=== PATIENT | female | born 1935 | race Caucasian/White ===

== ENCOUNTER 2018-10-18 14:13 | Inpatient (IN) | payer MEDICARE ==
[2018-10-18] MEDS ORDERED: SODIUM CHLORIDE 0.9% 1,000 ML IV STA ×2 (14:51)
--- NOTE | 2018-10-18 15:27 | ED ---
General Adult HPI <Papa Garcia - Last Filed: 10/18/18 16:57> - General Source: patient, RN notes reviewed, old records reviewed Mode of arrival: wheelchair Limitations: no limitations <Margaret Otto - Last Filed: 10/18/18 17:05> - General Chief complaint: Recheck/Abnormal Lab/Rx Stated complaint: Abn labs Time Seen by Provider: 10/18/18 14:22 - History of Present Illness Initial comments: Patient is an 83-year-old female with complaints of generalized fatigue and weakness complaining of some dyspnea for the past week and coughing. She went to her primary care doctor and had blood work obtained. She was called today with abnormal lab values. The report that she had low platelets. Patient has had some abnormal bruising for Reason over her shoulder and subconjunctival hemorrhages. Patient has had no fevers or chills. She denies any productivity to her cough. (Margaret Otto) - Related Data Home Medications Medication Instructions Recorded Confirmed Glucosam/Paulie-Msm1/C/Jason/Bosw 1 tab PO DAILY 10/18/18 10/18/18 [Glucosamine-Chondroitin Tablet] Levothyroxine Sodium [Synthroid] 88 mcg PO DAILY 10/18/18 10/18/18 Multivitamin/Iron/Folic Acid 1 tab PO DAILY 10/18/18 10/18/18 [Centrum Complete Multivit Tab] Risedronate Sodium [Risedronate 35 mg PO MO 10/18/18 10/18/[address]] Allergies Allergy/AdvReac Type Severity Reaction Status Date / Time No Known Allergies Allergy Verified 10/18/18 14:32 Review of Systems ROS Other: All systems not noted in ROS Statement are negative. <JosePapa - Last Filed: 10/18/18 16:57> ROS Other: All systems not noted in ROS Statement are negative. <Margaret Otto - Last Filed: 10/18/18 17:05> ROS Statement: Those systems with pertinent positive or pertinent negative responses have been documented in the HPI. Past Medical History Past Medical History: Thyroid Disorder History of Any Multi-Drug Resistant Organisms: None Reported Past Surgical History: Orthopedic Surgery Additional Past Surgical History / Comment(s): cataracts, cornea transplant Past Psychological History: No Psychological Hx Reported Smoking Status: Never smoker Past Alcohol Use History: None Reported Past Drug Use History: None Reported <AleishadouglaswillisMargaret - Last Filed: 10/18/18 17:05> General Exam Limitations: no limitations General appearance: alert, in no apparent distress Head exam: Present: atraumatic, normocephalic, normal inspection Eye exam: Present: normal appearance, PERRL, EOMI. Absent: scleral icterus, conjunctival injection, periorbital swelling ENT exam: Present: normal exam, mucous membranes moist Neck exam: Present: normal inspection. Absent: tenderness, meningismus, lymphadenopathy Respiratory exam: Present: normal lung sounds bilaterally. Absent: respiratory distress, wheezes, rales, rhonchi, stridor Cardiovascular Exam: Present: regular rate, normal rhythm, normal heart sounds. Absent: systolic murmur, diastolic murmur, rubs, gallop, clicks GI/Abdominal exam: Present: soft Extremities exam: Present: normal inspection, full ROM, normal capillary refill. Absent: tenderness, pedal edema, joint swelling, calf tenderness Back exam: Present: normal inspection Neurological exam: Present: alert, oriented X3, CN II-XII intact Psychiatric exam: Present: normal affect, normal mood Skin exam: Present: warm, dry, intact, normal color. Absent: rash <Whitley Ottoily - Last Filed: 10/18/18 17:05> - General Exam Comments Initial Comments: Pleasant 83-year-old female. No distress. (Margaret Otto) Course <Papa Garcia - Last Filed: 10/18/18 16:57> Vital Signs 10/18/18 10/18/18 14:16 15:07 Temperature 97.8 F Pulse Rate 90 Respiratory 18 16 Rate Blood Pressure 153/71 O2 Sat by Pulse 96 Oximetry - Reevaluation(s) Reevaluation #1: 10/18/18 16:57 PA supervision: I proceeded [id number] evaluation the patient I did discuss the findings with patient family members were present. Patient does demonstrate hemoglobin level VII.7 with a platelet count of 14,000. She also has evidence a right lower lobe infiltrate with a cough. Did discuss the case with Dr. Kapadia. Patient will be admitted with hematology consultation. (Papa Garcia) Medical Decision Making - Lab Data Result diagrams: 10/18/18 15:02 10/18/18 15:02 <Papa Garcia - Last Filed: 10/18/18 16:57> - Lab Data Result diagrams: 10/18/18 15:02 10/18/18 15:02 - Radiology Data Radiology results: report reviewed <Margaret Otto - Last Filed: 10/18/18 17:05> - Medical Decision Making Patient is an 83-year-old female presents today for complaints of cough, dyspnea starting on . She went to her primary care doctor and had lab work obtained and chest x-ray. She reports she was called today with him for abnormal lab values. Patient does report easy bruising that she's noted. And she was told she had a low platelet count. Today Patient has multiple lab abnormalities with a hemoglobin of 7.9. Hematocrit of 22.8. White blood cell 6.5. Platelets are significantly low at 14,000. Coagulation studies are within normal limits. Chemistry panels unremarkable. Patient's stool occult is negative. She has a positive chest x-ray for infiltrate on the right midlung. Patient started on Rocephin and azithromycin for concern for pneumonia. Patient case discussed with Dr. Garcia. We will admit the Patient for pneumonia and consult to hematology. With a negative occult will hold off on doing a blood transfusion at this time. (Margaret Otto) - Lab Data Lab Results 10/18/18 10/18/18 10/18/18 Range/Units 15:01 15:02 15:02 WBC 6.5 (3.8-10.6) k/uL RBC 2.16 L (3.80-5.40) m/uL Hgb 7.9 L (11.4-16.0) gm/dL Hct 22.8 L (34.0-46.0) % MCV 105.3 H (80.0-100.0) fL MCH 36.4 H (25.0-35.0) pg MCHC 34.6 (31.0-37.0) g/dL RDW 19.0 H (11.5-15.5) % Plt Count 14 L* (150-450) k/uL Neutrophils % 75 % Lymphocytes % 19 % Monocytes % 4 % Eosinophils % 1 % Basophils % 0 % Neutrophils # 4.9 (1.3-7.7) k/uL Lymphocytes # 1.3 (1.0-4.8) k/uL Monocytes # 0.3 (0-1.0) k/uL Eosinophils # 0.1 (0-0.7) k/uL Basophils # 0.0 (0-0.2) k/uL Manual Slide Review Performed Polychromasia Present Hypochromasia (manual) Present Anisocytosis Slight Anisocytosis (manual) Present Macrocytosis Marked A PT (9.0-12.0) sec INR (<1.2) APTT (22.0-30.0) sec Sodium 139 (137-145) mmol/L Potassium 3.9 (3.5-5.1) mmol/L Chloride 105 (98-107) mmol/L Carbon Dioxide 22 (22-30) mmol/L Anion Gap 12 mmol/L BUN 24 H (7-17) mg/dL Creatinine 0.61 (0.52-1.04) mg/dL Est GFR (CKD-EPI)AfAm >90 (>60 ml/min/1.73 sqM) Est GFR (CKD-EPI)NonAf 84 (>60 ml/min/1.73 sqM) Glucose 127 H (74-99) mg/dL Calcium 9.3 (8.4-10.2) mg/dL Magnesium 2.1 (1.6-2.3) mg/dL Total Bilirubin 1.8 H (0.2-1.3) mg/dL AST 46 H (14-36) U/L ALT 34 (9-52) U/L Alkaline Phosphatase 79 (38-126) U/L Troponin I (0.000-0.034) ng/mL Total Protein 6.7 (6.3-8.2) g/dL Albumin 4.0 (3.5-5.0) g/dL Stool Occult Blood (Negative) Blood Type B Positive Blood Type Confirm Blood Type Recheck CABO Indicated Antibody Screen NEGATIVE Spec Expiration Date 10/21/2018230010/18/18 10/18/18 10/18/18 Range/Units 15:02 15:02 15:57 WBC (3.8-10.6) k/uL RBC (3.80-5.40) m/uL Hgb (11.4-16.0) gm/dL Hct (34.0-46.0) % MCV (80.0-100.0) fL MCH (25.0-35.0) pg MCHC (31.0-37.0) g/dL RDW (11.5-15.5) % Plt Count (150-450) k/uL Neutrophils % % Lymphocytes % % Monocytes % % Eosinophils % % Basophils % % Neutrophils # (1.3-7.7) k/uL Lymphocytes # (1.0-4.8) k/uL Monocytes # (0-1.0) k/uL Eosinophils # (0-0.7) k/uL Basophils # (0-0.2) k/uL Manual Slide Review Polychromasia Hypochromasia (manual) Anisocytosis Anisocytosis (manual) Macrocytosis PT 9.4 (9.0-12.0) sec INR 0.9 (<1.2) APTT 24.1 (22.0-30.0) sec Sodium (137-145) mmol/L Potassium (3.5-5.1) mmol/L Chloride (98-107) mmol/L Carbon Dioxide (22-30) mmol/L Anion Gap mmol/L BUN (7-17) mg/dL Creatinine (0.52-1.04) mg/dL Est GFR (CKD-EPI)AfAm (>60 ml/min/1.73 sqM) Est GFR (CKD-EPI)NonAf (>60 ml/min/1.73 sqM) Glucose (74-99) mg/dL Calcium (8.4-10.2) mg/dL Magnesium (1.6-2.3) mg/dL Total Bilirubin (0.2-1.3) mg/dL AST (14-36) U/L ALT (9-52) U/L Alkaline Phosphatase (38-126) U/L Troponin I 0.014 (0.000-0.034) ng/mL Total Protein (6.3-8.2) g/dL Albumin (3.5-5.0) g/dL Stool Occult Blood NEG (Negative) Blood Type Blood Type Confirm Blood Type Recheck Antibody Screen Spec Expiration Date 10/18/18 Range/Units 16:48 WBC (3.8-10.6) k/uL RBC (3.80-5.40) m/uL Hgb (11.4-16.0) gm/dL Hct (34.0-46.0) % MCV (80.0-100.0) fL MCH (25.0-35.0) pg MCHC (31.0-37.0) g/dL RDW (11.5-15.5) % Plt Count (150-450) k/uL Neutrophils % % Lymphocytes % % Monocytes % % Eosinophils % % Basophils % % Neutrophils # (1.3-7.7) k/uL Lymphocytes # (1.0-4.8) k/uL Monocytes # (0-1.0) k/uL Eosinophils # (0-0.7) k/uL Basophils # (0-0.2) k/uL Manual Slide Review Polychromasia Hypochromasia (manual) Anisocytosis Anisocytosis (manual) Macrocytosis PT (9.0-12.0) sec INR (<1.2) APTT (22.0-30.0) sec Sodium (137-145) mmol/L Potassium (3.5-5.1) mmol/L Chloride (98-107) mmol/L Carbon Dioxide (22-30) mmol/L Anion Gap mmol/L BUN (7-17) mg/dL Creatinine (0.52-1.04) mg/dL Est GFR (CKD-EPI)AfAm (>60 ml/min/1.73 sqM) Est GFR (CKD-EPI)NonAf (>60 ml/min/1.73 sqM) Glucose (74-99) mg/dL Calcium (8.4-10.2) mg/dL Magnesium (1.6-2.3) mg/dL Total Bilirubin (0.2-1.3) mg/dL AST (14-36) U/L ALT (9-52) U/L Alkaline Phosphatase (38-126) U/L Troponin I (0.000-0.034) ng/mL Total Protein (6.3-8.2) g/dL Albumin (3.5-5.0) g/dL Stool Occult Blood (Negative) Blood Type Blood Type Confirm B Positive Blood Type Recheck Antibody Screen Spec Expiration Date - Radiology Data Chest x-ray shows mild infiltrate in the right midlung. No heart failure. (Margaret Otto) Disposition <Papa Garcia - Last Filed: 10/18/18 16:57> Is patient prescribed a controlled substance at d/c from ED?: No Time of Disposition: 17:05 <Margaret Otto - Last Filed: 10/18/18 17:05> Clinical Impression: Pneumonia, Thrombocytopenia, Anemia Disposition: ADMITTED IP TO THIS HOSP Condition: Stable Referrals: Carlos Wyatt DO [Primary Care Provider] - 1-2 days
[2018-10-18 15:39] LABS: ALT 34 U/L (9-52); AST 46 U/L (14-36); African American GFR (CKD) >90 (>60 ml/min/1.73 sqM); Alkaline Phosphatase 79 U/L (38-126); Anion Gap 12 mmol/L; Blood Urea Nitrogen 24 mg/dL (7-17); Calcium 9.3 mg/dL (8.4-10.2); Carbon Dioxide 22 mmol/L (22-30); Chloride 105 mmol/L (98-107); Glucose 127 mg/dL (74-99); INR 0.9 (<1.2); Magnesium 2.1 mg/dL (1.6-2.3); Partial Thromboplastin Time 24.1 sec (22.0-30.0); Potassium 3.9 mmol/L (3.5-5.1); Prothrombin Time 9.4 sec (9.0-12.0); Sodium 139 mmol/L (137-145); Total Bilirubin 1.8 mg/dL (0.2-1.3); Total Protein 6.7 g/dL (6.3-8.2)
--- NOTE | 2018-10-18 15:49 | XR ---
EXAMINATION TYPE: XR chest 2V DATE OF EXAM: 10/18/2018 COMPARISON: NONE HISTORY: Short of breath TECHNIQUE: Frontal and lateral views of the chest are obtained. FINDINGS: Heart is normal. Thoracic aorta is atheromatous. There is a mild interstitial infiltrate i n the right midlung. There is no pleural effusion. There is osteopenia. There is no compression fract ure. IMPRESSION: Mild infiltrate right midlung. No heart failure.
[2018-10-18 15:59] LABS: Anisocytosis Slight; Basophils % (A) 0 %; Eosinophils # (A) 0.1 k/uL (0-0.7); Eosinophils % (A) 1 %; HCT 22.8 % (34.0-46.0); HGB 7.9 gm/dL (11.4-16.0); Lymphocytes # (A) 1.3 k/uL (1.0-4.8); Lymphocytes % (A) 19 %; MCH 36.4 pg (25.0-35.0); MCHC 34.6 g/dL (31.0-37.0); MCV 105.3 fL (80.0-100.0); Macrocytosis Marked; Mean Platelet Volume 8.1; Monocytes # (A) 0.3 k/uL (0-1.0); Monocytes % (A) 4 %; Neutrophils # (A) 4.9 k/uL (1.3-7.7); Neutrophils % (A) 75 %; RBC 2.16 m/uL (3.80-5.40); WBC 6.5 k/uL (3.8-10.6)
[2018-10-18 16:41] LABS: Anisocytosis (M) Present; Hypochromasia (M) Present; Platelet Count 14 k/uL (150-450); Polychromasia Present
[2018-10-18] MEDS ORDERED: AZITHROMYCIN 500 MG TAB PO STA (16:55)
[2018-10-18] MEDS ORDERED: IPRATROPIUM-ALBUTEROL 3 ML NEB INHALATION STA (16:55)
[2018-10-18] MEDS ORDERED: PNEUMONIA PROTOCOL UTILIZED 1 EACH MISC PO PRN (17:05)
[2018-10-18] MEDS ORDERED: ACETAMINOPHEN TAB 500 MG TAB PO PRN (20:09)
[2018-10-18] MEDS ORDERED: ALPRAZolam 0.25 MG TAB PO PRN (20:09)
[2018-10-18 21:29] LABS: C Reactive Protein 143.5 mg/L (<10.0)
[2018-10-18 22:09] LABS: Reticulocyte % 2.6 % (0.5-2.0)
--- NOTE | 2018-10-18 22:34 | HP ---
HISTORY AND PHYSICAL DATE OF SERVICE: 10/18/2018 CHIEF COMPLAINT: Tiredness and weakness and cough. HISTORY OF PRESENT ILLNESS: This 83-year-old woman with a past medical history of multiple medical problems including history of cataracts, hypothyroidism, history of corneal transplant, being followed by Dr. Eloy Morocho in the outpatient setting was not feeling well since . The patient initially had cough and patient woke up with severe tiredness and weakness. Patient was seen by the primary physician and then today the patient was called because of very low platelet counts and patient was directed to go to [facility] Emergency Room and was admitted for further evaluation and treatment. On evaluation, the hemoglobin was 7.9 and platelets of 14. The patient also had some left subconjunctival hemorrhage. Chest x-ray showed possible right upper lobe pneumonia. Patient admitted for further evaluation and treatment. There is no history of fever, rigors or chills. No history of headache, loss of consciousness or seizures at this time. PAST MEDICAL HISTORY: History of hypothyroidism, history of DJD, history of cataracts. MEDICATIONS: Prior to admission: Home medications are: 1. Risedronate 35 mg p.o. monthly. 2. Synthroid 88 mcg p.o. daily. 3. Multivitamins 1 p.o. daily. 4. Glucosamine 1 p.o. daily. ALLERGIES: None. FAMILY HISTORY: No history of heart disease or strokes in the family. SOCIAL HISTORY: No history of smoking. No history of alcohol intake. REVIEW OF SYSTEMS: ENT: As mentioned earlier. Cardiovascular: No angina or palpitations. RESPIRATORY: As mentioned earlier. GI no nausea or vomiting. no dysuria. NERVOUS SYSTEM: No numbness or weakness. ALLERGY/IMMUNOLOGY: No asthma or hayfever. MUSCULOSKELETAL as mentioned earlier. HEMATOLOGY/ONCOLOGY: As mentioned earlier. ENDOCRINE: As mentioned earlier. CONSTITUTIONAL: As mentioned earlier. DERMATOLOGY: Negative. RHEUMATOLOGY negative. PSYCHIATRIC negative. PHYSICAL EXAMINATION: Alert and oriented times three. Pulse is 82. Blood pressure 153/71, respiration 18, temperature 97.8, pulse ox 98% on room air. HEENT: Conjunctivae subconjunctival hemorrhage on the left side. Oral mucosa moist. NECK is no jugular venous distention. No carotid bruit. No lymph node enlargement. CARDIOVASCULAR: S1, S2 muffled. No S3, no S4. RESPIRATORY: Breath sounds diminished in the bases. A few scattered rhonchi. No crackles. ABDOMEN: Soft, nontender. No mass palpable. No hepatosplenomegaly. No ascites. LEGS no edema. No swelling. NERVOUS SYSTEM: Higher functions as mentioned earlier. Moves all 4 limbs. No focal motor or sensory deficits. LYMPHATICS: No lymph nodes palpable in the neck, axillae or groin. SKIN: No ulcer, no rash and no bleeding. JOINTS: No active deforming arthropathy. LAB: WBC 6.5, hemoglobin 7.9, MCV 105 and platelets 14. Glucose 127, total bilirubin is 1.8. ASSESSMENT: 1. Possible right upper lobe right-sided pneumonia possibly viral pneumonia. 2. Severe thrombocytopenia of undetermined etiology possibly rule out idiopathic thrombocytopenia purpura or viral induced thrombocytopenia. 3. Anemia, microcytic etiology unknown. 4. Increased random blood sugar. 5. Increased total bilirubin. 6. History of degenerative joint disease. 7. Hypothyroidism. 8. History of corneal transplants. 9. History of cataracts. RECOMMENDATIONS AND DISCUSSION: In this 83-year-old woman who presented with multiple complex medical issues, we will monitor the patient closely. Continue the current medications, management and symptomatic treatment. We will initiate broad-spectrum IV antibiotics. Monitor the platelets very closely. Hematology/Oncology, Infectious Disease evaluation may be sought. Otherwise, prognosis guarded because of multiple complex medical issues. See orders for details. Discussed with the patient at length. A copy of dictation being forwarded to Dr. Eloy Morocho who is the primary physician. MMODL / IJN: [id number] /
[2018-10-19 01:52] LABS: Appearance,Urine Clear (Clear); Bacteria,Urine Few /hpf; Bilirubin,Urine Negative (Negative); Blood,Urine Moderate (Negative); Color,Urine Yellow; Glucose,Urine (UA) Negative (Negative); Ketones,Urine Negative (Negative); Leukocyte Esterase,Urine Large (Negative); Mucus,Urine Rare /hpf; Nitrite,Urine Positive (Negative); PH, Urine 5.5 (5.0-8.0); Protein,Urine Negative (Negative); RBC,Urine 4 /hpf (0-5); Specific Gravity,Urine 1.016 (1.001-1.035); Squamous Epithelial Cell,Urine <1 /hpf (0-4); Urobilinogen,Urine <2.0 mg/dL (<2.0); WBC,Urine 37 /hpf (0-5)
[2018-10-19] MEDS: IPRATROPIUM-ALBUTEROL 3 ML NEB INHALATION PRN ×2 (03:37→15:12)
[2018-10-19] MEDS: LEVOTHYROXINE 88 MCG TAB PO SCH (05:48)
--- NOTE | 2018-10-19 07:08 | XR ---
EXAMINATION TYPE: XR chest 2V DATE OF EXAM: 10/19/2018 COMPARISON: Chest x-ray from yesterday. HISTORY: Pneumonia. TECHNIQUE: Frontal and lateral views of the chest are obtained. FINDINGS: Cardiac silhouette size is stable and upper limits of normal. There is increasing alveolar opacity bilaterally and background reticular interstitial change. No large pleural effusion or pneum othorax.. IMPRESSION: Developing alveolar edema and/or infiltrates most prominent right mid lung region. Backg round bilateral diffuse interstitial edema and/or infiltrates. Correlation with older outside chest x -rays would be beneficial.
[2018-10-19 08:46] LABS: Anisocytosis Slight; Basophils % (A) 0 %; Eosinophils # (A) 0.1 k/uL (0-0.7); Eosinophils % (A) 1 %; Lymphocytes # (A) 0.6 k/uL (1.0-4.8); Lymphocytes % (A) 16 %; MCH 35.5 pg (25.0-35.0); MCHC 33.6 g/dL (31.0-37.0); MCV 105.9 fL (80.0-100.0); Macrocytosis Marked; Mean Platelet Volume 8.5; Monocytes # (A) 0.2 k/uL (0-1.0); Monocytes % (A) 5 %; Neutrophils % (A) 76 %; RBC 1.68 m/uL (3.80-5.40)
[2018-10-19 08:50] LABS: HCT 17.7 % (34.0-46.0); Platelet Count 17 k/uL (150-450)
[2018-10-19 09:15] LABS: African American GFR (CKD) >90 (>60 ml/min/1.73 sqM); Anion Gap 7 mmol/L; Blood Urea Nitrogen 15 mg/dL (7-17); Calcium 8.2 mg/dL (8.4-10.2); Carbon Dioxide 23 mmol/L (22-30); Chloride 106 mmol/L (98-107); Glucose 111 mg/dL (74-99); Potassium 3.6 mmol/L (3.5-5.1); Sodium 136 mmol/L (137-145)
[2018-10-19 09:36] LABS: Poikilocytosis (M) Present; Polychromasia Present
[2018-10-19] MEDS ORDERED: FUROSEMIDE 10 MG/ML 2 ML VIAL IV ONE ×2 (09:45→09:47)
[2018-10-19] MEDS: MULTIVITAMINS, THERA 1 EACH TAB PO SCH (10:24)
--- NOTE | 2018-10-19 11:47 | P.CONS ---
History of Present Illness - Reason for Consult Consult date: 10/19/18 Bicytopenia Requesting physician: Phillip Hines - Chief Complaint Progressive weakness, bruising - History of Present Illness Mrs. Dockery is a very pleasant 83-year-old female who looks much younger than her chronological age, she was in good health until about 3 weeks ago. She states that she received a vaccine that she was due for at [facility]. She noticed that the area bruised rather extensively and was very tender. About one week ago she started feeling progressively weaker, she noticed unusual bruising on her arms and thighs, had an episode of cold sweats, denied any nosebleeds, gum bleeding, coughing up of blood, her appetite has decreased over the last several weeks, no nausea or vomiting, chest pain, shortness of breath, abdominal pain, dysuria, hematuria, diarrhea or constipation, she did notice some dark stools but, she noted this after starting oral iron which she started taking due to weakness. Her daughter states that about 2-3 months ago she had an episode of shaking chills. Denies any personal history of cancer, no known blood problems. Urinary analysis suspicious, stool for occult was negative. Patient has osteoarthritis but denies any significant musculoskeletal pain. Review of Systems 14 point review of systems is negative except as stated in HPI Past Medical History Past Medical History: Thyroid Disorder History of Any Multi-Drug Resistant Organisms: None Reported Past Surgical History: Orthopedic Surgery Additional Past Surgical History / Comment(s): cataracts, cornea transplant Past Anesthesia/Blood Transfusion Reactions: No Reported Reaction Past Psychological History: No Psychological Hx Reported Smoking Status: Never smoker Past Alcohol Use History: None Reported Past Drug Use History: None Reported - Past Family History Father Additional Family Medical History / Comment(s): colon cancer Mother Family Medical History: CVA/TIA Medications and Allergies Home Medications Medication Instructions Recorded Confirmed Type Glucosam/Paulie-Msm1/C/Jaosn/Bosw 1 tab PO DAILY 10/18/18 10/18/18 History [Glucosamine-Chondroitin Tablet] Levothyroxine Sodium [Synthroid] 88 mcg PO DAILY 10/18/18 10/18/18 History Multivitamin/Iron/Folic Acid 1 tab PO DAILY 10/18/18 10/18/18 History [Centrum Complete Multivit Tab] Risedronate Sodium [Risedronate 35 mg PO MO 10/18/18 10/18/[address]] Allergies Allergy/AdvReac Type Severity Reaction Status Date / Time No Known Allergies Allergy Verified 10/18/18 14:32 Physical Exam Vitals: Vital Signs Temp Pulse Pulse Resp BP BP Pulse Ox 10/19/18 08:25 97 18 10/19/18 05:23 99.5 F 97 18 128/63 92 L 10/19/18 03:49 88 10/19/18 03:37 92 10/19/18 02:22 99.0 F 91 18 134/64 95 10/19/18 02:15 99.0 F 91 18 134/64 95 10/18/18 23:55 98.1 F 86 18 126/60 94 L 10/18/18 23:25 98.5 F 79 16 113/63 93 L 10/18/18 23:15 98.8 F 82 18 116/53 95 10/18/18 20:48 98.3 F 88 18 128/62 94 L 10/18/18 20:06 100 10/18/18 17:37 82 10/18/18 17:26 82 10/18/18 15:07 16 10/18/18 14:16 97.8 F 90 18 153/71 96 Intake and Output 10/18/18 10/19/18 10/19/18 22:59 06:59 14:59 Intake Total 563 Balance 563 Intake: Intake, IV Titration 250 Amount cefTRIAXone 1 gm In 250 Sodium Chloride 0.9% 50 ml @ 100 mls/hr IVPB Q24HR [facility] Rx#:[id number] Blood Product 313 Platelet Pheresis Acda1 313 Unit [id number] Other: Voiding Method Bedside Commode Bedside Commode Bedpan Bedpan # Voids 1 - Constitutional General appearance: average body habitus, cooperative, no acute distress - EENT Eyes: anicteric sclerae, EOMI, normal appearance ENT: hearing grossly normal, normal oropharynx - Neck Neck: no lymphadenopathy - Respiratory Respiratory: right: diminished (RML), bilateral: CTA - Cardiovascular Rhythm: regular Heart sounds: normal: S1, S2 Abnormal Heart Sounds: no systolic murmur, no diastolic murmur, no rub, no S3 Gallop, no S4 Gallop, no click, no other leg Peripheral Edema: bilateral: None - Gastrointestinal General gastrointestinal: no absent bowel sounds, no decreased bowel sounds, no distended, no hepatomegaly, no hyperactive bowel sounds, normal bowel sounds, no organomegaly, no rigid, no scaphoid, soft, no splenomegaly, no tenderness, no umbilical hernia, no ventral hernia - Integumentary Scattered bruises on the extremities, bilateral shins have some scattered petechiae, no hematomas Integumentary: normal turgor - Neurologic Neurologic: CNII-XII intact - Musculoskeletal Musculoskeletal: strength equal bilaterally - Psychiatric Psychiatric: A&O x's 3, appropriate affect, intact judgment & insight Results CBC & Chem 7: 10/19/18 08:14 10/19/18 08:14 Labs: Abnormal Lab Results - Last 24 Hours (Table) 10/18/18 10/18/18 10/18/18 Range/Units 15:01 15:02 15:02 RBC 2.16 L (3.80-5.40) m/uL Hgb 7.9 L (11.4-16.0) gm/dL Hct 22.8 L (34.0-46.0) % MCV 105.3 H (80.0-100.0) fL MCH 36.4 H (25.0-35.0) pg RDW 19.0 H (11.5-15.5) % Plt Count 14 L* (150-450) k/uL Lymphocytes # (1.0-4.8) k/uL Macrocytosis Marked A ESR (0-20) mm/hr Retic Count (0.5-2.0) % Sodium (137-145) mmol/L BUN 24 H (7-17) mg/dL Glucose 127 H (74-99) mg/dL Calcium (8.4-10.2) mg/dL Total Bilirubin 1.8 H (0.2-1.3) mg/dL AST 46 H (14-36) U/L Lactate Dehydrogenase (313-618) U/L C-Reactive Protein (<10.0) mg/L Urine Blood (Negative) Urine Nitrite (Negative) Ur Leukocyte Esterase (Negative) Urine WBC (0-5) /hpf Urine WBC Clumps (None) /hpf Urine Bacteria (None) /hpf Urine Mucus (None) /hpf Crossmatch See Detail 10/18/18 10/18/18 10/18/18 Range/Units 15:07 15:07 20:25 RBC (3.80-5.40) m/uL Hgb (11.4-16.0) gm/dL Hct (34.0-46.0) % MCV (80.0-100.0) fL MCH (25.0-35.0) pg RDW (11.5-15.5) % Plt Count (150-450) k/uL Lymphocytes # (1.0-4.8) k/uL Macrocytosis ESR 82 H (0-20) mm/hr Retic Count 2.6 H (0.5-2.0) % Sodium (137-145) mmol/L BUN (7-17) mg/dL Glucose (74-99) mg/dL Calcium (8.4-10.2) mg/dL Total Bilirubin (0.2-1.3) mg/dL AST (14-36) U/L Lactate Dehydrogenase 800 H (313-618) U/L C-Reactive Protein 143.5 H (<10.0) mg/L Urine Blood (Negative) Urine Nitrite (Negative) Ur Leukocyte Esterase (Negative) Urine WBC (0-5) /hpf Urine WBC Clumps (None) /hpf Urine Bacteria (None) /hpf Urine Mucus (None) /hpf Crossmatch 10/19/18 10/19/18 10/19/18 Range/Units 01:22 08:14 08:14 RBC 1.68 L (3.80-5.40) m/uL Hgb 6.0 L* D (11.4-16.0) gm/dL Hct 17.7 L* (34.0-46.0) % MCV 105.9 H (80.0-100.0) fL MCH 35.5 H (25.0-35.0) pg RDW 19.0 H (11.5-15.5) % Plt Count 17 L* (150-450) k/uL Lymphocytes # 0.6 L (1.0-4.8) k/uL Macrocytosis Marked A ESR (0-20) mm/hr Retic Count (0.5-2.0) % Sodium 136 L (137-145) mmol/L BUN (7-17) mg/dL Glucose 111 H (74-99) mg/dL Calcium 8.2 L (8.4-10.2) mg/dL Total Bilirubin (0.2-1.3) mg/dL AST (14-36) U/L Lactate Dehydrogenase (313-618) U/L C-Reactive Protein (<10.0) mg/L Urine Blood Moderate H (Negative) Urine Nitrite Positive H (Negative) Ur Leukocyte Esterase Large H (Negative) Urine WBC 37 H (0-5) /hpf Urine WBC Clumps Rare H (None) /hpf Urine Bacteria Few H (None) /hpf Urine Mucus Rare H (None) /hpf Crossmatch Chest x-ray: report reviewed US - abdomen: report reviewed Assessment and Plan (1) Anemia Current Visit: Yes Status: Acute Priority: High Code(s): D64.9 - ANEMIA, UNSPECIFIED SNOMED Code(s): 147157950 (2) Thrombocytopenia Current Visit: Yes Status: Acute Priority: High Code(s): D69.6 - THROMBOCYTOPENIA, UNSPECIFIED SNOMED Code(s): 606415453 Plan: This is all sudden onset for patient. Multiple labs have been ordered to evaluate for a marrow disorder, nutritional deficit, hemolysis. Patient may possibly need a bone marrow, this was briefly discussed as a possibility. Med list has been reviewed, no medications related to marrow suppression noted. Transfuse to keep hemoglobin at or above 7. 1 unit now with a repeat CBC about 5-6 hours later. Hold platelet transfusion for right now for a platelet count of 17,000. WBC and differential are within normal desired limits at this time.
[2018-10-19 17:30] LABS: Reticulocyte % 2.6 % (0.5-2.0)
[2018-10-19] MEDS: AZITHROMYCIN 500 MG TAB PO SCH (18:17)
[2018-10-19 20:05] LABS: Anisocytosis Slight; Basophils % (A) 0 %; Eosinophils # (A) 0.1 k/uL (0-0.7); Eosinophils % (A) 2 %; HCT 23.5 % (34.0-46.0); Lymphocytes # (A) 0.9 k/uL (1.0-4.8); Lymphocytes % (A) 23 %; MCH 35.9 pg (25.0-35.0); MCV 105.6 fL (80.0-100.0); Macrocytosis Marked; Mean Platelet Volume 8.7; Monocytes # (A) 0.2 k/uL (0-1.0); Monocytes % (A) 6 %; Neutrophils # (A) 2.7 k/uL (1.3-7.7); Neutrophils % (A) 69 %; RBC 2.22 m/uL (3.80-5.40); RDW 17.6 % (11.5-15.5)
[2018-10-19 20:10] LABS: Platelet Count 12 k/uL (150-450)
--- NOTE | 2018-10-19 22:30 | PN ---
PROGRESS NOTE DATE OF SERVICE: 10/19/2018 This 83-year-old woman with a past medical history of multiple medical problems was admitted with significant anemia as well as thrombocytopenia. The patient is also suspected to have pneumonia. The patient is on broad-spectrum IV antibiotics also. The patient received thrombocytopenia. The patient is being closely monitored at this time. The patient also received 1 unit transfusion also. PAST MEDICAL HISTORY: Reviewed. REVIEW OF SYSTEMS: CARDIOVASCULAR SYSTEM: No angina or palpitations. RESPIRATION: As mentioned earlier. GASTROINTESTINAL: As mentioned earlier. no dysuria. NERVOUS SYSTEM: No numbness or weakness. CURRENT MEDICATIONS: Reviewed and include: 1. Tylenol 500 mg q.6h p.r.n. 2. DuoNeb q.i.d. and p.r.n. 3. Xanax as necessary. 5. Rocephin 1 g daily. 6. Synthroid 18 mcg p.o. daily. 7. Multivitamin 1 p.o. daily. 8. Risedronate. PHYSICAL EXAM: Patient is alert, oriented x3. The pulse is 78, blood pressure 118/66, respiration 18. Temperature 98.2, pulse ox 98% on room air. HEENT: Conjunctivae subconjunctival hemorrhage. NECK is no jugular venous distention. No carotid bruit. No lymph node enlargement. Cardiovascular SYSTEM: S1, S2. No S3, no S4. RESPIRATIONS: Breath sounds diminished in the bases. Few rhonchi. No crackles. ABDOMEN: Soft, nontender. LEGS: No edema. No swelling. NERVOUS SYSTEM: No focal deficits. LABS: WBC 4, hemoglobin is 6, platelets 17. Sodium 136. UA noted. ASSESSMENT: 1. Possible bilateral bronchopneumonia/interstitial pneumonia, right more than the left, possibly viral pneumonia. 2. Severe thrombocytopenia, undetermined etiology, rule out idiopathic thrombocytopenia purpura or viral-induced thrombocytopenia. 3. Anemia, microcytic etiology, unknown. 4. Increased random blood sugar. 5. Increased total bilirubin. 6. History of degenerative joint disease. 7. Hypothyroidism. 8. History of corneal transplant. 9. History of cataracts. RECOMMENDATIONS AND DISCUSSION: I recommend to continue current medications, continue with monitoring and symptomatic treatment. Otherwise at this time, closely follow with multiple consultants. Hematology/Oncology following the patient closely. Repeat chest x-ray noted. I would recommend Pulmonary and as well as infectious disease evaluation also. Prognosis guarded. Discussed with the family at length. Understands and agrees. Further recommendations to follow. The hematology/oncology is also performing evaluations including the marrow disorder and nutritional deficiency as well as hemolysis. ESR 82. The CRP is also elevated. Further recommendations to follow. MMODL / IJN: [id number] / CYRIL
[2018-10-20 04:01] LABS: Mycoplasma IgM Antibody 0.1 INDEX (<=0.90)
[2018-10-20] MEDS: LEVOTHYROXINE 88 MCG TAB PO SCH (05:33)
[2018-10-20] MEDS: IPRATROPIUM-ALBUTEROL 3 ML NEB INHALATION PRN ×2 (08:59→15:58)
[2018-10-20 09:02] LABS: African American GFR (CKD) >90 (>60 ml/min/1.73 sqM); Anion Gap 6 mmol/L; Blood Urea Nitrogen 14 mg/dL (7-17); Calcium 8.4 mg/dL (8.4-10.2); Carbon Dioxide 27 mmol/L (22-30); Chloride 106 mmol/L (98-107); Glucose 98 mg/dL (74-99); Potassium 3.6 mmol/L (3.5-5.1); Sodium 139 mmol/L (137-145)
[2018-10-20 09:10] LABS: Anisocytosis Slight; Basophils % (A) 0 %; Eosinophils # (A) 0.1 k/uL (0-0.7); Eosinophils % (A) 3 %; HCT 22.4 % (34.0-46.0); HGB 7.6 gm/dL (11.4-16.0); Lymphocytes % (A) 23 %; MCH 35.6 pg (25.0-35.0); MCHC 34.1 g/dL (31.0-37.0); MCV 104.4 fL (80.0-100.0); Macrocytosis Moderate; Mean Platelet Volume 8.8; Monocytes # (A) 0.2 k/uL (0-1.0); Monocytes % (A) 4 %; Neutrophils # (A) 2.9 k/uL (1.3-7.7); Neutrophils % (A) 69 %; RBC 2.14 m/uL (3.80-5.40); RDW 18.3 % (11.5-15.5); WBC 4.2 k/uL (3.8-10.6)
[2018-10-20 09:20] LABS: Platelet Count 17 k/uL (150-450)
[2018-10-20] MEDS: MULTIVITAMINS, THERA 1 EACH TAB PO SCH (09:42)
[2018-10-20 11:27] LABS: Iron Saturation 21.82 (12.00-45.00)
[2018-10-20 12:27] LABS: Haptoglobin 57.8 mg/dL (31.2-198.0)
[2018-10-20] MEDS: RISEDRONATE SODIUM 35 MG PO SCH (12:38)
[2018-10-20 14:41] LABS: Albumin 2.95 g/dL (3.80-4.90); Gamma Globulin 0.55 g/dL (0.70-1.50)
--- NOTE | 2018-10-20 15:01 | P.PN ---
Subjective Progress Note Date: 10/20/18 Principal diagnosis: Cytopenias Dr. Woodard discussed Peripheral smear with pathology and no Schistocytes acknowledged. Objective - Vital Signs Vital signs: Vital Signs Temp 98.3 F 10/20/18 11:25 Pulse 71 10/20/18 11:25 Resp 20 10/20/18 11:25 BP 136/69 10/20/18 11:25 Pulse Ox 90 L 10/20/18 11:25 Intake & Output 10/19/18 10/20/18 10/20/18 18:59 06:59 18:59 Intake Total 550 1514 Balance 550 1514 Intake: Intake, IV Titration 1200 Amount Sodium Chloride 0.9% 1, 800 000 ml @ 100 mls/hr IV . Q10H STA Rx#:[id number] cefTRIAXone 1 gm In 400 Sodium Chloride 0.9% 50 ml @ 100 mls/hr IVPB Q24HR SKY Rx#:[id number] Oral 240 Blood Product 310 314 Platelet Pheresis Acda2 314 Unit [id number] Rc As-1 Unit 310 [id number] Other: Voiding Method Bedside Commode Bedside Commode Bedside Commode Bedpan # Voids 3 4 1 # Bowel Movements 1 - Exam - Constitutional General appearance: average body habitus, cooperative, no acute distress - EENT Eyes: anicteric sclerae, EOMI, normal appearance ENT: hearing grossly normal, normal oropharynx - Neck Neck: no lymphadenopathy - Respiratory Respiratory: right: diminished (RML), bilateral: CTA - Cardiovascular Rhythm: regular Heart sounds: normal: S1, S2 Abnormal Heart Sounds: no systolic murmur, no diastolic murmur, no rub, no S3 Gallop, no S4 Gallop, no click, no other leg Peripheral Edema: bilateral: None - Gastrointestinal General gastrointestinal: no absent bowel sounds, no decreased bowel sounds, no distended, no hepatomegaly, no hyperactive bowel sounds, normal bowel sounds, no organomegaly, no rigid, no scaphoid, soft, no splenomegaly, no tenderness, no umbilical hernia, no ventral hernia - Integumentary Scattered bruises on the extremities, bilateral shins have some scattered petechiae, no hematomas Integumentary: normal turgor - Neurologic Neurologic: CNII-XII intact - Musculoskeletal Musculoskeletal: strength equal bilaterally - Psychiatric Psychiatric: A&O x's 3, appropriate affect, intact judgment & insight - Labs CBC & Chem 7: 10/20/18 07:47 10/20/18 07:47 Labs: Abnormal Lab Results - Last 24 Hours (Table) 10/18/18 10/18/18 10/19/18 Range/Units 15:01 15:02 08:14 RBC 2.16 L (3.80-5.40) m/uL Hgb 7.9 L (11.4-16.0) gm/dL Hct 22.8 L (34.0-46.0) % MCV 105.3 H (80.0-100.0) fL MCH 36.4 H (25.0-35.0) pg RDW 19.0 H (11.5-15.5) % Plt Count 14 L* (150-450) k/uL Lymphocytes # (1.0-4.8) k/uL Pathologist Review See comment A Macrocytosis Marked A Retic Count 2.6 H (0.5-2.0) % Fibrinogen (200-500) mg/dL Creatinine (0.52-1.04) mg/dL Total Protein (PEP) (6.2-8.2) g/dL Crossmatch See Detail 10/19/18 10/19/18 10/20/18 Range/Units 08:24 19:48 07:47 RBC 2.22 L 2.14 L (3.80-5.40) m/uL Hgb 8.0 L D 7.6 L (11.4-16.0) gm/dL Hct 23.5 L 22.4 L (34.0-46.0) % MCV 105.6 H 104.4 H (80.0-100.0) fL MCH 35.9 H 35.6 H (25.0-35.0) pg RDW 17.6 H 18.3 H (11.5-15.5) % Plt Count 12 L* 17 L* (150-450) k/uL Lymphocytes # 0.9 L (1.0-4.8) k/uL Pathologist Review Macrocytosis Marked A Retic Count (0.5-2.0) % Fibrinogen (200-500) mg/dL Creatinine (0.52-1.04) mg/dL Total Protein (PEP) 5.0 L (6.2-8.2) g/dL Crossmatch 10/20/18 10/20/18 Range/Units 07:47 11:24 RBC (3.80-5.40) m/uL Hgb (11.4-16.0) gm/dL Hct (34.0-46.0) % MCV (80.0-100.0) fL MCH (25.0-35.0) pg RDW (11.5-15.5) % Plt Count (150-450) k/uL Lymphocytes # (1.0-4.8) k/uL Pathologist Review Macrocytosis Retic Count (0.5-2.0) % Fibrinogen 626 H (200-500) mg/dL Creatinine 0.46 L (0.52-1.04) mg/dL Total Protein (PEP) (6.2-8.2) g/dL Crossmatch Microbiology - Last 24 Hours (Table) 10/19/18 01:22 Urine Culture - Final Urine,Voided 10/18/18 15:02 Blood Culture - Preliminary Blood No Growth after 24 hours Assessment and Plan Plan: Assessment and Plan Sudden onset Bicytopenia: - Likely secondary to underlying infectious process, possible component ITP - Less likely due to Hemolysis or Bone marrow disorder - No Schistocytes Anemia - Macrocytic - Was recently started on Iron PO prior to hospitalization. Thrombocytopenia: - Monitor for s/s bleeding - Transfuse less than 10 - No AC therapy, ASA, or NSAIDS Plan: - Compare to last 6 month trend of labs - Awaiting a few more labs to result - Coags have remained WNL Physician Attestation: I have performed the full physical examination and reviewed the full history of this patient, as well as pertinent findings. I have created the compled impression and recommendations. I agree with the above dictation by ABBIE Jaramillo. This dictation has been written as a scribe.
[2018-10-20 16:10] LABS: Glucose,Whole Blood 145 mg/dL (75-99)
--- NOTE | 2018-10-20 16:40 | XR ---
EXAMINATION TYPE: XR chest 1V portable DATE OF EXAM: 10/20/2018 COMPARISON: 10/19/2018 INDICATION: Shortness of breath TECHNIQUE: Single frontal view of the chest is obtained. FINDINGS: The heart size is probably prominent. The pulmonary vasculature is prominent. There is diffuse increased lung markings. This is worsening from comparison. Correlate for pulmonary edema. Infectious etiologies are within the differential. Continued follow-up is recommended. IMPRESSION: 1. Diffuse increased lung markings suspicious for edema. Findings are worsening. Infectious etiologie s could be considered. Continued follow-up is recommended.
[2018-10-20] MEDS ORDERED: FUROSEMIDE 10 MG/ML 4 ML VIAL IV STA (16:59)
[2018-10-20] MEDS: AZITHROMYCIN 500 MG TAB PO SCH (17:04)
[2018-10-20] MEDS: PANTOPRAZOLE 40 MG TABLET PO SCH (18:39)
--- NOTE | 2018-10-20 19:43 | PN ---
PROGRESS NOTE DATE OF SERVICE: 10/20/2018. This 83 -year-old woman who was admitted for possible bilateral bronchopneumonia also had severe thrombocytopenia and anemia also. Patient received 1 unit transfusions and platelet transfusion also. Multiple consultants including Hematology/ Oncology and Pulmonary following the patient closely. PAST MEDICAL HISTORY: Reviewed. REVIEW OF SYSTEMS: Cardiovascular system: As mentioned earlier. RESPIRATORY: As mentioned earlier. GI no nausea or vomiting. NERVOUS SYSTEM: No numbness or weakness. CURRENT MEDICATIONS: Reviewed and include: 1. Tylenol 500 mg q.6h p.r.n. 2. DuoNeb q.i.d. and p.r.n. 3. Xanax 0.5 t.i.d. 4. Zithromax 500 mg p.o. daily. 5. Rocephin 1 g daily. 6. Synthroid 88 mcg p.o. daily. 7. Multivitamins 1 p.o. daily. 8. Risedronate. 9. Protonix 40 mg daily. 10.Pred-Forte eyedrops. PHYSICAL EXAM: Patient is alert and oriented x3. Pulse is 118. Blood pressure 136/69, respiration 20, temperature 98.3, pulse ox 98% on 4 L. HEENT: Conjunctivae normal. NECK: No JVD. CARDIOVASCULAR: S1, S2 muffled. RESPIRATORY: Breath sounds diminished in the bases. Scattered rhonchi and crackles. ABDOMEN: Soft, nontender. No mass palpable. LEGS: No edema. No swelling. NERVOUS SYSTEM: Higher functions as mentioned earlier. Moves all four extremities. No focal motor or sensory deficits. LYMPHATICS: No lymph nodes palpable in the neck, axillae or groin. SKIN: No ulcer, no rashes and no bleeding. JOINTS: No active deforming arthropathy. LABS: WBC 4.2, hemoglobin 7.6, platelets 17. D-dimer is 1.69. Fibrinogen is 626. TSH is 0.611. UA noted. Stool OB is negative. Influenza is negative and Legionella antigen negative. Mycoplasma negative also. ASSESSMENT: 1. Possible bilateral bronchopneumonia or interstitial pneumonia, right more the left with possible bilateral pneumonia. 2. Severe thrombocytopenia, undetermined etiology. Rule out idiopathic thrombocytopenia purpura or viral induced thrombocytopenia. 3. Anemia, microcytic anemia undetermined etiology, status post blood transfusions. 4. Increased random blood sugar. 5. Increased total bilirubin. 6. History of degenerative joint disease. 7. Hypothyroidism. 8. History of corneal transplant. 9. History of cataracts. RECOMMENDATIONS AND DISCUSSION: This 83-year-old woman who presented with multiple complex medical issues, we will monitor the patient closely. Continue the current medications, management and symptomatic treatment. Cultures negative at this time. Continue recommend continue IV antibiotics. Closely follow with Pulmonary. The hemoglobin 7.6 and platelets 17 today. Closely monitor with Hematology/Oncology who has ordered multiple evaluations as well. Overall prognosis guarded because of multiple complex medical issues as mentioned earlier. Further recommendations to follow. MMODL / IJN: [id number] /
[2018-10-20] MEDS: IPRATROPIUM-ALBUTEROL 3 ML NEB INHALATION SCH (19:44)
--- NOTE | 2018-10-20 20:55 | CONS ---
CONSULTATION DATE OF CONSULTATION: October 20, 2018 HISTORY OF PRESENT ILLNESS: This is an 83-year-old female who sees a physician down in [place], [place] for her primary care provider. She apparently was not feeling well and got into see an either nurse practitioner or PA who evaluated her and did some blood work on her. Apparently Dr. Wyatt who now sees this patient, called the patient and told the patient to come into the hospital to be evaluated. I believe this was on either Saturday or Saturday. Apparently her labs were very abnormal. In addition, she complains of being weak and fatigued and also complained of shortness of breath and some cough. The coughing was not nonproductive. She denied any fever or chills. The patient states that she was not coughing up any phlegm. She had no chest pain or chest discomfort. She apparently was quite anemic and also thrombocytopenia and bruising and for that reason, was told to come in to be evaluated. She apparently has seen the cancer doctor and the application assistant already. The patient states that she is normally very healthy. She states that her only major medical problems are hypothyroidism, DJD, and osteoporosis/osteopenia. In fact, she only takes glucosamine and chondroitin, levothyroxine, multivitamins and risedronate. The patient does not really have any allergies and states that she is very healthy. Lifelong nonsmoker. Does not really drink. No illicit drug use. Very, very healthy. She was surprised that she was discovered to have these abnormalities on the lab. She was also apparently told in the ER that she might have pneumonia even though she really did not have any pneumonic symptoms other than the shortness of breath and nonproductive cough. Since she has been here in the hospital, she did receive blood and platelets. MEDICATIONS: Her medications have already been noted. ALLERGIES: None. MEDICAL HISTORY: Includes osteoporosis, DJD and hypothyroidism. SURGICAL HISTORY: Includes cataract surgery, corneal transplant and some orthopedic procedures. SOCIAL HISTORY: Negative for tobacco use. Denies any alcohol use. No illicit drug use. FAMILY HISTORY: Unremarkable. Apparently, both mother and father were very healthy. No major medical problems in the family to speak of. REVIEW OF SYSTEMS: CONSTITUTIONAL: Weakness and fatigue. NEUROLOGIC: Negative. HEENT negative. CARDIOVASCULAR: Negative. PULMONARY: Mild shortness of breath and dry non-productive cough. GI negative. negative. RHEUMATOLOGIC negative. IMMUNOLOGIC negative. ENDOCRINOLOGIC negative. DERMATOLOGIC negative. HEMATOLOGIC: Bruising. PHYSICAL EXAMINATION: VITAL SIGNS: Current vital signs are reviewed. Temperature is 98.3. Heart rate 71. Respiratory rate 20, blood pressure 136/69, mean 91. Saturations are 90% on 4 L. GENERAL: She appears in no acute distress, although she does have some very mild conversational dyspnea. She does cough from time to time which is nonproductive and dry sounding. HEENT examination is grossly unremarkable. Nasal O2 noted. NECK: Supple. Full range of motion. No adenopathy. CARDIOVASCULAR examination reveals regular rhythm and rate. Heart rate 71. S1, S2 normal. LUNGS: Reveal a few scattered crackles throughout. No rhonchi or wheezes. Breath sounds equal. ABDOMEN: Soft. Bowel sounds are heard. EXTREMITIES are intact. No cyanosis, clubbing, or edema. Skin with a few scattered bruises. NEUROLOGIC examination is brief but nonfocal. LABS: Reviewed. Initial labs on admission show white count of 6.5, hemoglobin 7.9, hematocrit 22.8, and platelet count of 14,000. Subsequent to that, her hemoglobin dropped down to 6.0 with hematocrit 17.7 and a platelet count of 17,000. She did receive a unit of blood. Her most recent counts include a white count of 4.2, hemoglobin 7.6, hematocrit 22.4, and a platelet count of 17,000. On peripheral smear she apparently does have some macrocytosis. Sedimentation rate 82,. Retic count 2.6. It is high. Haptoglobin 57.8. Fibrinogen 626. PT/INR, PTT all normal. Sodium, potassium, chloride, CO2 all normal. Anion gap 6. BUN and creatinine most notably were 14 and 0.46. Those were the most recent ones. Bilirubin 1.8, AST 46, LDH 800. C-reactive protein 143.5. Total protein 5, albumin 4.0. Urine shows moderate blood. Positive for nitrite, large positive for leukocyte esterase, WBCs are 37, WBC clumps are rare. Bacteria were few. Influenza studies are negative. The urine Legionella antigen was negative. Mycoplasma antibodies were noted. Most recent chest x-ray shows some increased interstitial markings bilaterally, but a prominence of abnormalities noted primarily in the right mid lung area. This could be pneumonia or asymmetric pulmonary edema. Microbiologic studies are thus far negative. She is currently on Tylenol, Xanax, Zithromax, Rocephin, updrafts, levothyroxine, multivitamins and Risedronate. ASSESSMENT: 1. Significant anemia and thrombocytopenia, new onset, of unclear etiology. It appears the patient may have a component of hemolysis. 2. Diffuse bilateral infiltrates, right greater than left-sided, which may reflect fluid overload from IV fluids, platelets and blood and/or pneumonia. 3. History of hypothyroidism. 4. Degenerative joint disease. 5. Osteoporosis. 6. Lifelong nonsmoker. 7. Mild hyperbilirubinemia. PLAN: Currently, the patient is on adequate antibiotics in the form of Zithromax and Rocephin. She has been seen by Hematology. I am going to order an N terminal proBNP which might help to differentiate infection versus fluid overload. Additional recommendations and suggestions are forthcoming. Prognosis is guarded. We will watch very carefully. She may need a bone marrow biopsy. MMODL / IJN: [id number] /
[2018-10-20] MEDS ORDERED: METOPROLOL TARTRATE 25 MG TAB PO STA (23:46)
[2018-10-21] MEDS ORDERED: LEVOFLOXACIN 750MG-D5W PMX 750 MG in DEXTROSE/WATER 1 150ML.BAG IVPB STA (00:06)
--- NOTE | 2018-10-21 00:14 | P.CONS ---
History of Present Illness - Reason for Consult Consult date: 10/20/18 Fever Requesting physician: Phillip Hines - Chief Complaint Cough and easy bruising - History of Present Illness Patient is 83-year-old female presenting to the ER at [facility] with the chief complaints of generalized weakness and easy bruising symptom has been going on for kast 2-3 weeks, apparently the patient did have blood work in an outpatient setting she was noticed to be thrombocytopenic with the symptom for the patient did presented to the ER patient on initial presentation was afebrile however she did spike a fever of 101F last night the patient also complaining of shortness of breath with minimal exertion and she did have a mild cough but not bringing up any sputum no URI symptoms no choking on the food any chest pain nausea vomiting and no abdominal pain or any diarrhea patient was noticed to have anemia and thrombocytopenia white count has been normal blood cultures so far negative she has been treated with Rocephin and Zit hromax however the chest x-ray has shown progressive worsening with concern for possible MRSA pneumonia infectious disease was consulted for further recommendation regarding antibiotic therapy Review of Systems Positive points has been mentioned in HPI rest of the systems are negative Past Medical History Past Medical History: Thyroid Disorder History of Any Multi-Drug Resistant Organisms: None Reported Past Surgical History: Orthopedic Surgery Additional Past Surgical History / Comment(s): cataracts, cornea transplant Past Anesthesia/Blood Transfusion Reactions: No Reported Reaction Past Psychological History: No Psychological Hx Reported Smoking Status: Never smoker Past Alcohol Use History: None Reported Past Drug Use History: None Reported - Past Family History Father Additional Family Medical History / Comment(s): colon cancer Mother Family Medical History: CVA/TIA Medications and Allergies Home Medications Medication Instructions Recorded Confirmed Type Glucosam/Paulie-Msm1/C/Jason/Bosw 1 tab PO DAILY 10/18/18 10/18/18 History [Glucosamine-Chondroitin Tablet] Levothyroxine Sodium [Synthroid] 88 mcg PO DAILY 10/18/18 10/18/18 History Multivitamin/Iron/Folic Acid 1 tab PO DAILY 10/18/18 10/18/18 History [Centrum Complete Multivit Tab] Risedronate Sodium [Risedronate 35 mg PO MO 10/18/18 10/18/[address]] Allergies Allergy/AdvReac Type Severity Reaction Status Date / Time No Known Allergies Allergy Verified 10/18/18 14:32 Physical Exam Vitals: Vital Signs Temp Pulse Pulse Pulse Resp BP BP 10/20/18 11:25 98.3 F 71 20 10/20/18 09:12 80 10/20/18 09:01 76 10/20/18 05:00 97.7 F 78 16 124/62 10/20/18 00:02 97.7 F 88 88 24 132/71 10/19/18 22:15 98.1 F 86 22 120/63 10/19/18 22:13 98.8 F 89 22 125/66 10/19/18 21:45 98.5 F 88 20 135/67 10/19/18 21:35 101.0 F H 93 18 160/69 10/19/18 20:53 98.8 F 91 16 135/72 10/19/18 17:48 98.6 F 88 36 H 133/67 10/19/18 17:24 98.3 F 10/19/18 17:06 10/19/18 16:30 94 97 18 10/19/18 15:22 80 10/19/18 15:12 80 10/19/18 14:42 98.2 F 78 18 118/67 10/19/18 14:41 98.2 F 70 18 121/67 10/19/18 13:13 98.0 F 74 20 116/74 10/19/18 12:43 98.8 F 93 20 112/69 10/19/18 12:33 98.1 F 89 18 114/50 10/19/18 12:27 98.2 F 68 18 121/67 BP Pulse Ox 10/20/18 11:25 136/69 90 L 10/20/18 09:12 10/20/18 09:01 10/20/18 05:00 94 L 10/20/18 00:02 92 L 10/19/18 22:15 95 10/19/18 22:13 10/19/18 21:45 93 L 10/19/18 21:35 92 L 10/19/18 20:53 91 L 10/19/18 17:48 92 L 10/19/18 17:24 10/19/18 17:06 96 10/19/18 16:30 10/19/18 15:22 10/19/18 15:12 10/19/18 14:42 10/19/18 14:41 98 10/19/18 13:13 10/19/18 12:43 93 L 10/19/18 12:33 94 L 10/19/18 12:27 98 Intake and Output 10/19/18 10/20/18 10/20/18 22:59 06:59 14:59 Intake Total 800 714 Balance 800 714 Intake: Intake, IV Titration 800 400 Amount Sodium Chloride 0.9% 1, 800 000 ml @ 100 mls/hr IV . Q10H STA Rx#:[id number] cefTRIAXone 1 gm In 400 Sodium Chloride 0.9% 50 ml @ 100 mls/hr IVPB Q24HR SKY Rx#:[id number] Blood Product 0 314 Platelet Pheresis Acda2 0 314 Unit [id number] Other: Voiding Method Bedside Commode Bedside Commode Bedside Commode Bedpan # Voids 3 4 1 # Bowel Movements 1 GENERAL DESCRIPTION: Elderly female lying in bed, no distress. No tachypnea or accessory muscle of respiration use. HEENT: Shows Pallor , no scleral icterus. Oral mucous membrane is dry. No pharyngeal erythema or thrush NECK: Trachea central, no thyromegaly. LUNGS: Unlabored breathing. Decreased to some at the base. No wheeze or crackle. HEART: S1, S2, regular rate and rhythm. No loud murmur ABDOMEN: Soft, no tenderness , guarding or rigidity, no organomegaly EXTREMITIES: No edema of feet. SKIN: No rash, no masses palpable. NEUROLOGICAL: The patient is awake, alert, oriented x3, mood and affect normal. Results CBC & Chem 7: 10/20/18 07:47 10/20/18 07:47 Labs: Abnormal Lab Results - Last 24 Hours (Table) 10/18/18 10/18/18 10/19/18 Range/Units 15:01 15:02 08:14 RBC 2.16 L (3.80-5.40) m/uL Hgb 7.9 L (11.4-16.0) gm/dL Hct 22.8 L (34.0-46.0) % MCV 105.3 H (80.0-100.0) fL MCH 36.4 H (25.0-35.0) pg RDW 19.0 H (11.5-15.5) % Plt Count 14 L* (150-450) k/uL Lymphocytes # (1.0-4.8) k/uL Macrocytosis Marked A Retic Count 2.6 H (0.5-2.0) % Creatinine (0.52-1.04) mg/dL Crossmatch See Detail 10/19/18 10/20/18 10/20/18 Range/Units 19:48 07:47 07:47 RBC 2.22 L 2.14 L (3.80-5.40) m/uL Hgb 8.0 L D 7.6 L (11.4-16.0) gm/dL Hct 23.5 L 22.4 L (34.0-46.0) % MCV 105.6 H 104.4 H (80.0-100.0) fL MCH 35.9 H 35.6 H (25.0-35.0) pg RDW 17.6 H 18.3 H (11.5-15.5) % Plt Count 12 L* 17 L* (150-450) k/uL Lymphocytes # 0.9 L (1.0-4.8) k/uL Macrocytosis Marked A Retic Count (0.5-2.0) % Creatinine 0.46 L (0.52-1.04) mg/dL Crossmatch Microbiology - Last 24 Hours (Table) 10/19/18 01:22 Urine Culture - Final Urine,Voided 10/18/18 15:02 Blood Culture - Preliminary Blood No Growth after 24 hours Assessment and Plan Assessment: 1-patient presented to hospital with generalized weakness in this patient who did have evidence of anemia and thrombocytopenia with concern for possible infectious etiology in this patient who did have a fever and predominantly respiratory symptoms underlying pneumonia such as atypical pathogen not entirely excluded and overall no good response to the initial antibiotic regimen of Rocephin and Zithromax Plan: 1-we will check urine for Legionella antigen 2-obtain sputum for Gram stain and culture 3-adjust antibiotic to cefepime and Levaquin we will follow on clinical condition and culture to further adjust medication if needed Thank you for this consultation will follow this patient along with you Time with Patient: Greater than 30
[2018-10-21] MEDS ORDERED: METOPROLOL TARTRATE 25 MG TAB PO STA (00:49)
[2018-10-21] MEDS: PANTOPRAZOLE 40 MG TABLET PO SCH (05:38)
[2018-10-21] MEDS: LEVOTHYROXINE 88 MCG TAB PO SCH (05:38)
[2018-10-21 06:57] LABS: Anisocytosis Slight; Basophils % (A) 0 %; Eosinophils % (A) 1 %; HCT 21.3 % (34.0-46.0); HGB 7.2 gm/dL (11.4-16.0); Lymphocytes # (A) 0.9 k/uL (1.0-4.8); Lymphocytes % (A) 18 %; MCH 35.7 pg (25.0-35.0); MCHC 33.7 g/dL (31.0-37.0); MCV 105.7 fL (80.0-100.0); Macrocytosis Marked; Mean Platelet Volume 8.6; Monocytes # (A) 0.2 k/uL (0-1.0); Monocytes % (A) 4 %; Neutrophils # (A) 3.8 k/uL (1.3-7.7); Neutrophils % (A) 76 %; RBC 2.01 m/uL (3.80-5.40); RDW 17.3 % (11.5-15.5); WBC 5.1 k/uL (3.8-10.6)
[2018-10-21 07:03] LABS: Platelet Count 17 k/uL (150-450)
[2018-10-21 07:20] LABS: ALT 53 U/L (9-52); AST 49 U/L (14-36); African American GFR (CKD) >90 (>60 ml/min/1.73 sqM); Albumin 3.2 g/dL (3.5-5.0); Alkaline Phosphatase 102 U/L (38-126); Anion Gap 9 mmol/L; Blood Urea Nitrogen 15 mg/dL (7-17); Calcium 8.3 mg/dL (8.4-10.2); Carbon Dioxide 26 mmol/L (22-30); Chloride 100 mmol/L (98-107); Glucose 111 mg/dL (74-99); Potassium 3.2 mmol/L (3.5-5.1); Sodium 135 mmol/L (137-145); Total Bilirubin 2.2 mg/dL (0.2-1.3); Total Protein 5.8 g/dL (6.3-8.2)
--- NOTE | 2018-10-21 08:26 | XR ---
EXAMINATION TYPE: XR chest 2V DATE OF EXAM: 10/21/2018 COMPARISON: 10/20/2018 TECHNIQUE: PA and lateral views submitted. HISTORY: Follow-up pneumonia FINDINGS: Heart size is stable. Atherosclerotic change aorta. Interstitial pattern seen with subsegmental areas of consolidation. No sizable pleural effusion. No pneumothorax. IMPRESSION: 1. Correlate for CHF or interstitial pneumonitis. Superimposed right upper lobe pneumonia or pulmonar y edema in the differential diagnosis. Findings are similar to the prior exam.
[2018-10-21] MEDS: IPRATROPIUM-ALBUTEROL 3 ML NEB INHALATION SCH ×4 (08:32→20:51)
[2018-10-21] MEDS: CEFEPIME 2 GM in SODIUM CHLORIDE 0.9% 100 ML IVPB SCH ×2 (08:52→20:11)
[2018-10-21] MEDS: MULTIVITAMINS, THERA 1 EACH TAB PO SCH (08:53)
[2018-10-21] MEDS ORDERED: Potassium Replacement Protocol 1 EACH MISC MISCELLANE PRN (09:14)
[2018-10-21] MEDS: prednisoLONE ACETATE 1% OPHTH DROPS 5 ML BTL BOTH EYES SCH (10:00)
[2018-10-21] MEDS: POTASSIUM CHLORIDE ER 20 MEQ TAB.ER PO SCH ×4 (10:05→16:22)
[2018-10-21] MEDS ORDERED: FUROSEMIDE 10 MG/ML 4 ML VIAL IV STA (10:19)
[2018-10-21 10:53] LABS: Poikilocytosis (M) Present
--- NOTE | 2018-10-21 11:37 | P.CRDCN ---
History of Present Illness Consult date: 10/21/18 Requesting physician: Phillip Hines Reason for Consult (text): Tachycardia Chief complaint: Shortness of breath, cough, increased fatigue and weakness History of present illness: This is a pleasant 83-year-old female with no prior documented history of hypertension, no diabetes, she does have hyperlipidemia, and has ALLERGY to statins, history of hypothyroidism, degenerative joint disease, cataracts, and history of corneal transplant. Overall the patient's health has been excellent according to her. Since Saturday of last week, her daughter has noticed her to be much more tired and fatigued than usual, on the patient noticed herself to have developed a cough, she was very weak, had chills with associated sweating, and felt somewhat short of breath. Patient states she has noticed over the past couple of weeks to bruise more easily than usual. She went to see her primary care doctor, she was seen in the office by the nurse practitioner on that visit and lab tests as well as a chest x-ray had been requested. Subsequent to that she did receive a call primary care physician to come to the hospital for further evaluation. It was noted that her lab tests were s ignificantly abnormal. Laboratory data done at [facility], hemoglobin 7.7, white blood cell count 7.1, TSH is 0.3 free T4 1 0.4, BUN 16 and creatinine 0.6 sodium 141, potassium 4.1, CO2 26. Chest x-ray on arrival here showed a mild infiltrate in the right midlung, no heart failure. EKG on arrival here showed a normal sinus rhythm with a left bundle-branch block pattern and nonspecific ST-T wave changes. Repeat chest x-ray showed developing alveolar edema and/or infiltrates most prominent in the right midlung region. Background bilateral diffuse interstitial edema and/or infiltrates. Subsequent x-ray showed diffuse increased lung markings suspicious for edema. Findings are worsening. Infectious etiologies should be considered. Chest x-ray today showed correlation for heart failure or interstitial pneumonitis. Superimposed right upper lobe pneumonia or pulmonary edema and differential diagnosis. Laboratory data reviewed here, hemoglobin on presentation here 7.9, it did go down to 6 and patient received a blood transfusion, it is 7.2 this morning. Platelet count down to 12, 17 this morning, sodium 135, potassium 3.2, BUN 15, creatinine 0.4. Fibrinogen 626, d-dimer 1.69. Iron saturation 21.8, total bilirubin 2.2 AST 49 ALT 53 02 TROPONINS 0.014, 0.031, 0.024. C-REACTIVE PROTEIN 143. BNP LEVEL MCDLXX WHICH IS NORMAL FOR THE PATIENT'S AGE. Stool for occult blood was negative for influenza A and B-. Urine Legionella was not detected. Patient did have a temperature of 101 last evening. Her blood pressure this morning 128/58 with a heart rate in the 80s, 93% on 5 L of oxygen. It was noted through the night that the patient's heart rate would go up into the 03[birth year]17[birth year]1929 range, EKG and rhythm strips show sinus tachycardia with occasional PACs. For this reason a cardiology consultation had been requested. At the time of my examination this morning, patient continues to feel fatigued and tired. She did receive a blood transfusion. Past Medical History Past Medical History: Thyroid Disorder History of Any Multi-Drug Resistant Organisms: None Reported Past Surgical History: Orthopedic Surgery Additional Past Surgical History / Comment(s): cataracts, cornea transplant Past Anesthesia/Blood Transfusion Reactions: No Reported Reaction Past Psychological History: No Psychological Hx Reported Smoking Status: Never smoker Past Alcohol Use History: None Reported Past Drug Use History: None Reported - Past Family History Father Additional Family Medical History / Comment(s): colon cancer Mother Family Medical History: CVA/TIA Medications and Allergies Home Medications Medication Instructions Recorded Confirmed Type Glucosam/Paulie-Msm1/C/Jason/Bosw 1 tab PO DAILY 10/18/18 10/18/18 History [Glucosamine-Chondroitin Tablet] Levothyroxine Sodium [Synthroid] 88 mcg PO DAILY 10/18/18 10/18/18 History Multivitamin/Iron/Folic Acid 1 tab PO DAILY 10/18/18 10/18/18 History [Centrum Complete Multivit Tab] Risedronate Sodium [Risedronate 35 mg PO MO 10/18/18 10/18/[address]] Allergies Allergy/AdvReac Type Severity Reaction Status Date / Time No Known Allergies Allergy Verified 10/18/18 14:32 Physical Exam Vitals: Vital Signs Temp Pulse Pulse Pulse Resp BP BP 10/21/18 11:05 86 97 18 10/21/18 09:06 86 18 10/21/18 08:46 88 10/21/18 08:33 92 10/21/18 05:30 97.9 F 83 19 129/58 10/21/18 01:09 98.2 F 92 18 116/58 10/20/18 23:20 130 H 24 10/20/18 22:00 98.6 F 125 H 18 97/57 10/20/18 21:40 138 H 28 H 10/20/18 19:56 100 10/20/18 19:44 104 H 10/20/18 17:00 10/20/18 16:14 100 10/20/18 15:58 118 H 10/20/18 11:25 98.3 F 71 20 136/69 Pulse Ox 10/21/18 11:05 10/21/18 09:06 10/21/18 08:46 10/21/18 08:33 10/21/18 05:30 93 L 10/21/18 01:09 91 L 10/20/18 23:20 10/20/18 22:00 91 L 10/20/18 21:40 92 L 10/20/18 19:56 10/20/18 19:44 10/20/18 17:00 94 L 10/20/18 16:14 10/20/18 15:58 94 L 10/20/18 11:25 90 L Intake and Output 10/20/18 10/21/18 10/21/18 22:59 06:59 14:59 Intake Total 220 Output Total 875 Balance -655 Intake: Intake, IV Titration 100 Amount Cefepime 2 gm In Sodium 100 Chloride 0.9% 100 ml @ 200 mls/hr IVPB Q12HR [facility] Rx#:[id number] Oral 120 Output: Urine 875 Other: Voiding Method Bedside Commode Bedside Commode Bedside Commode # Voids 1 1 2 # Bowel Movements 1 Weight 70.3 kg PHYSICAL EXAMINATION: GENERAL: 83-year-old female in no acute distress at the time of my examination HEENT: Head is atraumatic, normocephalic. Pupils equal, round. Sclera anicteric. Conjunctiva are clear. Mucous membranes of the mouth are moist. Neck is supple. There is no elevated jugular venous pressure. No carotid bruit is heard. HEART EXAMINATION: Heart S1 S2 1 systolic murmur is heard CHEST EXAMINATION: Lungs reveal scattered crackles throughout. ABDOMEN: Soft, nontender. Bowel sounds are heard. No organomegaly noted. EXTREMITIES: 2+ peripheral pulses with no evidence of peripheral edema and no calf tenderness noted. NEUROLOGIC patient is awake, alert and oriented 3 . . Results 10/21/18 05:48 10/21/18 05:48 Cardiac Enzymes 10/20/18 10/21/18 10/21/18 Range/Units 22:36 05:48 05:48 AST 49 H (14-36) U/L Troponin I 0.031 0.024 (0.000-0.034) ng/mL CBC 10/18/18 10/21/18 Range/Units 15:02 05:48 WBC 6.5 5.1 (3.8-10.6) k/uL RBC 2.16 L 2.01 L (3.80-5.40) m/uL Hgb 7.9 L 7.2 L (11.4-16.0) gm/dL Hct 22.8 L 21.3 L (34.0-46.0) % Plt Count 14 L* 17 L* (150-450) k/uL Comprehensive Metabolic Panel 10/21/18 Range/Units 05:48 Sodium 135 L (137-145) mmol/L Potassium 3.2 L (3.5-5.1) mmol/L Chloride 100 (98-107) mmol/L Carbon Dioxide 26 (22-30) mmol/L BUN 15 (7-17) mg/dL Creatinine 0.48 L (0.52-1.04) mg/dL Glucose 111 H (74-99) mg/dL Calcium 8.3 L (8.4-10.2) mg/dL AST 49 H (14-36) U/L ALT 53 H (9-52) U/L Alkaline Phosphatase 102 (38-126) U/L Total Protein 5.8 L (6.3-8.2) g/dL Albumin 3.2 L (3.5-5.0) g/dL Current Medications Generic Name Dose Route Start Last Admin Trade Name Freq PRN Reason Stop Dose Admin Acetaminophen 500 mg 10/18/18 20:09 10/19/18 21:28 Tylenol Tab PO 500 mg Q6HR PRN Administration Fever and/ or Pain Albuterol/Ipratropium 3 ml 10/18/18 17:05 10/20/18 15:58 Duoneb 0.5 Mg-3 Mg/3 Ml Soln INHALATION 3 ml RT-Q4H PRN Administration shortness of breath Albuterol/Ipratropium 3 ml 10/20/18 20:00 10/21/18 08:32 Duoneb 0.5 Mg-3 Mg/3 Ml Soln INHALATION 3 ml RT-QID SK[facility] Administration Alprazolam 0.25 mg 10/18/18 20:09 Xanax PO TID PRN Anxiety Cefepime HCl 2 gm/ Sodium 100 mls @ 200 mls/hr 10/21/18 09:00 10/21/18 08:52 Chloride IVPB 200 mls/hr Q12HR [facility] Administration Levothyroxine Sodium 88 mcg 10/19/18 06:30 10/21/18 05:38 Synthroid PO 88 mcg 0630 SKY Administration Miscellaneous Information 1 each 10/18/18 17:05 Pneumonia Protocol Utilized PO ONCE PRN Per Protocol Miscellaneous Information 1 each 10/21/18 09:14 Potassium Per Protocol MISCELLANE DAILY PRN Per Protocol Protocol Multivitamins 1 each 10/19/18 09:00 10/21/18 08:53 Theragran PO 1 each DAILY SKY Administration Non-Formulary Medication 35 mg 10/20/18 09:00 10/20/18 12:38 Risedronate Sodium [Risedronate Sodium Dr] PO Not Given MO SKY Pantoprazole Sodium 40 mg 10/20/18 17:15 10/21/18 05:38 Protonix PO 40 mg AC-BRKFST SKY Administration Prednisolone Acetate 1 drops 10/21/18 09:00 10/21/18 10:00 Pred Forte 1% BOTH EYES 1 drops DAILY SKY Administration Intake and Output 10/20/18 10/21/18 10/21/18 22:59 06:59 14:59 Intake Total 220 Output Total 875 Balance -655 Intake: Intake, IV Titration 100 Amount Cefepime 2 gm In Sodium 100 Chloride 0.9% 100 ml @ 200 mls/hr IVPB Q12HR [facility] Rx#:[id number] Oral 120 Output: Urine 875 Other: Voiding Method Bedside Commode Bedside Commode Bedside Commode # Voids 1 1 2 # Bowel Movements 1 Weight 70.3 kg 10/21/18 05:48 10/21/18 05:48 EKG Interpretations (text) EKG shows a sinus tachycardia with a left bundle-branch block pattern and nonspecific ST-T wave changes. Assessment and Plan Plan: Assessment and plan #1 significant anemia with associated thrombocytopenia, new onset, unclear etiology. Hematology is following. Patient did receive blood transfusion. #2 diffuse bilateral infiltrates, suggesting possible pneumonia, patient is on antibiotics. BNP level normal for the patient's age. #3 hypothyroidism #4 degenerative joint disease #5 hyperlipidemia, ALLERGIC to statins #6 hyperkalemia Plan We will obtain an echocardiogram with Doppler study. Patient's heart rate is under good control this morning. We will also try to obtain an old EKG for comparison. Replace potassium. Further recommendations to follow. DNP note has been reviewed, I agree with a documented findings and plan of care. Patient was seen and examined.
--- NOTE | 2018-10-21 12:18 | P.PN ---
Subjective Progress Note Date: 10/21/18 Principal diagnosis: Acute hypoxic respiratory failure secondary to profound anemia, fluid volume overload. The patient is seen today 10/21/2018 in follow-up on the selective care unit. She is currently awake and alert in no acute distress. Breathing easier today as compared to yesterday. Still requiring 5 L high flow nasal cannula to maintain O2 saturation in the low 90s. She's been afebrile. Hemodynamically stable. She is status post 1 unit of packed red blood cells. One unit of platelets. Current hemoglobin 7.2. Platelet count 17,000. Blood culture reveals no growth. Urine culture reveals no growth. White count 5.1. Creatinine 0.48. Remains on bronchodilators, antibiotics in the form of cefepime. Chest x-ray shows evidence of congestive heart failure versus interstitial pneumonitis. She'll be given Lasix 40 mg IVP 1 today. Objective - Vital Signs Vital signs: Vital Signs Temp 97.9 F 10/21/18 05:30 Pulse 100 10/21/18 12:08 Resp 18 10/21/18 11:05 BP 129/58 10/21/18 05:30 Pulse Ox 93 L 10/21/18 05:30 Intake & Output 10/20/18 10/21/18 10/21/18 18:59 06:59 18:59 Intake Total 400 220 Output Total 1275 Balance 400 -1055 Weight 70.3 kg Intake: Intake, IV Titration 400 100 Amount Cefepime 2 gm In Sodium 100 Chloride 0.9% 100 ml @ 200 mls/hr IVPB Q12HR [facility] Rx#:[id number] cefTRIAXone 1 gm In 400 Sodium Chloride 0.9% 50 ml @ 100 mls/hr IVPB Q24HR [facility] Rx#:[id number] Oral 120 Output: Urine 1275 Other: Voiding Method Bedside Commode Bedside Commode Bedside Commode # Voids 3 1 1 # Bowel Movements 1 1 - Exam GENERAL EXAM: Alert, pleasant 83-year-old female patient, comfortable in no apparent distress. On 5 L high flow nasal cannula. HEAD: Normocephalic. EYES: Normal reaction of pupils, equal size. NOSE: Clear with pink turbinates. THROAT: No erythema or exudates. NECK: No masses, no JVD. CHEST: No chest wall deformity. LUNGS: Equal air entry with crackles in the bilateral posterior bases. CVS: S1 and S2 normal with no audible murmur, regular rhythm. ABDOMEN: No hepatosplenomegaly, normal bowel sounds, no guarding or rigidity. SPINE: No scoliosis or deformity SKIN: No rashes CENTRAL NERVOUS SYSTEM: No focal deficits, tone is normal in all 4 extremities. EXTREMITIES: There is no peripheral edema. No clubbing, no cyanosis. Peripheral pulses are intact. - Labs CBC & Chem 7: 10/21/18 05:48 10/21/18 05:48 Labs: Abnormal Lab Results - Last 24 Hours (Table) 10/18/18 10/19/18 10/20/18 Range/Units 15:02 08:24 11:24 RBC (3.80-5.40) m/uL Hgb (11.4-16.0) gm/dL Hct (34.0-46.0) % MCV (80.0-100.0) fL MCH (25.0-35.0) pg RDW (11.5-15.5) % Plt Count (150-450) k/uL Lymphocytes # (1.0-4.8) k/uL Pathologist Review See comment A Macrocytosis Fibrinogen 626 H (200-500) mg/dL D-Dimer (<0.60) mg/L FEU Sodium (137-145) mmol/L Potassium (3.5-5.1) mmol/L Creatinine (0.52-1.04) mg/dL Glucose (74-99) mg/dL POC Glucose (mg/dL) (75-99) mg/dL Calcium (8.4-10.2) mg/dL Total Bilirubin (0.2-1.3) mg/dL AST (14-36) U/L ALT (9-52) U/L Total Protein (6.3-8.2) g/dL Total Protein (PEP) 5.0 L (6.2-8.2) g/dL Albumin (3.5-5.0) g/dL Albumin (PEP) 2.95 L (3.80-4.90) g/dL Enpoo-2-Lmmejpaal 0.53 L (0.60-1.00) g/dL Gamma Globulins 0.55 L (0.70-1.50) g/dL 10/20/18 10/20/18 10/21/18 Range/Units 11:24 15:58 05:48 RBC 2.01 L (3.80-5.40) m/uL Hgb 7.2 L (11.4-16.0) gm/dL Hct 21.3 L (34.0-46.0) % MCV 105.7 H (80.0-100.0) fL MCH 35.7 H (25.0-35.0) pg RDW 17.3 H (11.5-15.5) % Plt Count 17 L* (150-450) k/uL Lymphocytes # 0.9 L (1.0-4.8) k/uL Pathologist Review Macrocytosis Marked A Fibrinogen (200-500) mg/dL D-Dimer 1.69 H (<0.60) mg/L FEU Sodium (137-145) mmol/L Potassium (3.5-5.1) mmol/L Creatinine (0.52-1.04) mg/dL Glucose (74-99) mg/dL POC Glucose (mg/dL) 145 H (75-99) mg/dL Calcium (8.4-10.2) mg/dL Total Bilirubin (0.2-1.3) mg/dL AST (14-36) U/L ALT (9-52) U/L Total Protein (6.3-8.2) g/dL Total Protein (PEP) (6.2-8.2) g/dL Albumin (3.5-5.0) g/dL Albumin (PEP) (3.80-4.90) g/dL Uqyyl-7-Wizvonuxj (0.60-1.00) g/dL Gamma Globulins (0.70-1.50) g/dL 10/21/18 Range/Units 05:48 RBC (3.80-5.40) m/uL Hgb (11.4-16.0) gm/dL Hct (34.0-46.0) % MCV (80.0-100.0) fL MCH (25.0-35.0) pg RDW (11.5-15.5) % Plt Count (150-450) k/uL Lymphocytes # (1.0-4.8) k/uL Pathologist Review Macrocytosis Fibrinogen (200-500) mg/dL D-Dimer (<0.60) mg/L FEU Sodium 135 L (137-145) mmol/L Potassium 3.2 L (3.5-5.1) mmol/L Creatinine 0.48 L (0.52-1.04) mg/dL Glucose 111 H (74-99) mg/dL POC Glucose (mg/dL) (75-99) mg/dL Calcium 8.3 L (8.4-10.2) mg/dL Total Bilirubin 2.2 H (0.2-1.3) mg/dL AST 49 H (14-36) U/L ALT 53 H (9-52) U/L Total Protein 5.8 L (6.3-8.2) g/dL Total Protein (PEP) (6.2-8.2) g/dL Albumin 3.2 L (3.5-5.0) g/dL Albumin (PEP) (3.80-4.90) g/dL Cdeob-9-Jbwzgtvzx (0.60-1.00) g/dL Gamma Globulins (0.70-1.50) g/dL Microbiology - Last 24 Hours (Table) 10/18/18 15:02 Blood Culture - Preliminary Blood No Growth after 48 hours 10/19/18 01:22 Urine Culture - Final Urine,Voided Assessment and Plan Assessment: Impression: #1 Acute hypoxic respiratory failure secondary to significant anemia and thrombocytopenia, diffuse bilateral infiltrates right greater than left with evidence of fluid volume overload versus pneumonia. #2 Anemia with thrombocytopenia of unclear etiology. Current hemoglobin 7.2. Platelet count 17,000. #3 Hypothyroidism. #4 Degenerative joint disease. #5 Osteoporosis. The patient was seen and evaluated by Dr. Beatty. Chest x-ray was reviewed. There is some improvement. We will give an additional 40 mg of IV Lasix 1 today. She is improved clinically. We'll continue with the current treatment plan. She will eventually need a bone marrow biopsy. We'll continue to follow. I, the cosigning physician, performed a history & physical examination of the patient. Lungs sounds with basilar crackles. Maintaining good O2 saturations in the 90s on 5 L/m per nasal cannula I discussed the assessment and plan of care with my nurse practitioner, Layla Bradford. I attest to the above note as dictated by her.
--- NOTE | 2018-10-21 13:14 | ECHOF ---
Referral Reason:chf MEASUREMENTS -------- HEIGHT: 0.0 cm WEIGHT: 0.0 kg BP: 129/58 RVIDd: 2.2 cm (< 3.3) IVSd: 1.3 cm (0.6 - 1.1) LVIDd: 3.9 cm (3.9 - 5.3) LVPWd: 1.2 cm (0.6 - 1.1) IVSs: 1.7 cm LVIDs: 2.6 cm LVPWs: 1.5 cm LAESV Index (A-L): 25.26 ml/m Ao Diam: 3.1 cm (2.0 - 3.7) AV Cusp: 1.9 cm (1.5 - 2.6) LA Diam: 3.0 cm (2.7 - 3.8) MV EXCURSION: 12.148 mm (> 18.000) MV EF SLOPE: 38 mm/s (70 - 150) EPSS: 0.5 cm MV E Juvenal: 1.59 m/s MV DecT: 293 ms MV A Juvenal: 1.14 m/s MV E/A Ratio: 1.39 AR PHT: 276 ms RAP: 5.00 mmHg RVSP: 57.78 mmHg FINDINGS -------- Sinus rhythm with extra systolic beats. This was a technically adequate study. The left ventricular size is normal. There is mild concentric left ventricular hypertrophy. Overa ll left ventricular systolic function is mildly impaired with, an EF between 45 - 50 %. Mitral Dopp ler inflow pattern suggests diastolic filling abnormality 27.00. The right ventricle is normal in size. Normal LA size by volume 22+/-6 ml/m2. The right atrial size is normal. Interatrial and interventricular septum intact. Aortic valve is trileaflet and is mildly thickened. There is mild aortic regurgitation. The mitral valve is normal. The mitral valve leaflets are mildly thickened. Mild mitral annular c alcification present. Moderate mitral regurgitation is present. The tricuspid valve appears structurally normal. Mild tricuspid regurgitation present. There is m oderate pulmonary hypertension. The right ventricular systolic pressure, as measured by Doppler, is 57.78mmHg. There is no pulmonic regurgitation present. The aortic root size is normal. Normal inferior vena cava with normal inspiratory collapse consistent with estimated right atrial pre ssure of 5 mmHg. There is no pericardial effusion. CONCLUSIONS -------- 1. Sinus rhythm with extra systolic beats. 2. This was a technically adequate study. 3. The left ventricular size is normal. 4. There is mild concentric left ventricular hypertrophy. 5. Overall left ventricular systolic function is mildly impaired with, an EF between 45 - 50 %. 6. Mitral Doppler inflow pattern suggest diastolic filling abnormality 27.00. 7. The right ventricle is normal in size. 8. Normal LA size by volume 22+/-6 ml/m2. 9. The right atrial size is normal. 10. Interatrial and interventricular septum intact. 11. Aortic valve is trileaflet and is mildly thickened. 12. There is mild aortic regurgitation. 13. The mitral valve is normal. 14. The mitral valve leaflets are mildly thickened. 15. Mild mitral annular calcification present. 16. Moderate mitral regurgitation is present. 17. The tricuspid valve appears structurally normal. 18. Mild tricuspid regurgitation present. 19. There is moderate pulmonary hypertension. 20. The right ventricular systolic pressure, as measured by Doppler, is 57.78mmHg. 21. There is no pulmonic regurgitation present. 22. The aortic root size is normal. 23. Normal inferior vena cava with normal inspiratory collapse consistent with estimated right atrial pressure of 5 mmHg. 24. There is no pericardial effusion. LOTTERY MANAGER: Radha Diaz RDCS
[2018-10-21] MEDS: LEVOFLOXACIN 750 MG TAB PO SCH (18:15)
--- NOTE | 2018-10-21 22:32 | P.PN ---
Subjective Progress Note Date: 10/21/18 The patient was somewhat more short of breath yesterday, with some worsening chest x-ray didn't which she was transferred to the cardiac unit. She symptomatically improved today. She has not noticed any obvious bleeding. No new bruises. No fevers or chills. Objective - Vital Signs Vital signs: Vital Signs Temp 97.8 F 10/21/18 20:00 Pulse 86 10/21/18 21:06 Resp 21 10/21/18 20:00 BP 128/58 10/21/18 20:00 Pulse Ox 95 10/21/18 20:00 Intake & Output 10/21/18 10/21/18 10/22/18 06:59 18:59 06:59 Intake Total 940 Output Total 1475 Balance -535 Weight 70.3 kg Intake: Intake, IV Titration 100 Amount Cefepime 2 gm In Sodium 100 Chloride 0.9% 100 ml @ 200 mls/hr IVPB Q12HR [facility] Rx#:[id number] Oral 840 Output: Urine 1475 Other: Voiding Method Bedside Commode Toilet Bedside Commode # Voids 1 1 1 # Bowel Movements 1 1 - Constitutional General appearance: Present: no acute distress - EENT Eyes: Present: EOMI ENT: Present: hearing grossly normal, normal oropharynx - Respiratory Respiratory: bilateral: rales - Cardiovascular Rhythm: regular Heart sounds: normal: S1, S2 - Gastrointestinal General gastrointestinal: Present: normal bowel sounds, soft - Integumentary Integumentary Comment(s): mild scattered bruises upper extremities resolving. No new ecchymosis - Neurologic Neurologic: Present: CNII-XII intact - Musculoskeletal Musculoskeletal: Present: strength equal bilaterally - Psychiatric Psychiatric: Present: A&O x's 3, appropriate affect - Labs CBC & Chem 7: 10/21/18 05:48 10/21/18 17:34 Labs: Abnormal Lab Results - Last 24 Hours (Table) 10/21/18 10/21/18 10/21/18 Range/Units 05:48 05:48 05:48 RBC 2.01 L (3.80-5.40) m/uL Hgb 7.2 L (11.4-16.0) gm/dL Hct 21.3 L (34.0-46.0) % MCV 105.7 H (80.0-100.0) fL MCH 35.7 H (25.0-35.0) pg RDW 17.3 H (11.5-15.5) % Plt Count 17 L* (150-450) k/uL Lymphocytes # 0.9 L (1.0-4.8) k/uL Macrocytosis Marked A Sodium 135 L (137-145) mmol/L Potassium 3.2 L (3.5-5.1) mmol/L Creatinine 0.48 L (0.52-1.04) mg/dL Glucose 111 H (74-99) mg/dL Calcium 8.3 L (8.4-10.2) mg/dL Total Bilirubin 2.2 H (0.2-1.3) mg/dL AST 49 H (14-36) U/L ALT 53 H (9-52) U/L Total Protein 5.8 L (6.3-8.2) g/dL Albumin 3.2 L (3.5-5.0) g/dL Procalcitonin 0.11 H (0.02-0.09) ng/mL 10/21/18 Range/Units 13:04 RBC (3.80-5.40) m/uL Hgb (11.4-16.0) gm/dL Hct (34.0-46.0) % MCV (80.0-100.0) fL MCH (25.0-35.0) pg RDW (11.5-15.5) % Plt Count (150-450) k/uL Lymphocytes # (1.0-4.8) k/uL Macrocytosis Sodium (137-145) mmol/L Potassium 3.0 L (3.5-5.1) mmol/L Creatinine (0.52-1.04) mg/dL Glucose (74-99) mg/dL Calcium (8.4-10.2) mg/dL Total Bilirubin (0.2-1.3) mg/dL AST (14-36) U/L ALT (9-52) U/L Total Protein (6.3-8.2) g/dL Albumin (3.5-5.0) g/dL Procalcitonin (0.02-0.09) ng/mL Microbiology - Last 24 Hours (Table) 08/24/19 15:02 Blood Culture - Preliminary Blood No Growth after 72 hours Assessment and Plan (1) Bicytopenia Narrative/Plan: Counts were stable today in a safe range. There is no evidence of overt bleeding. Therefore transient support was not required today. At a long discussion with the patient and her family regarding possible differen tials at this point. - On admission there was concern about a microangiopathic hemolytic process sug gestive TTP. That appears to be quite unlikely as the patient has normal renal function, and fairly mild elevation in LDH. 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 Based on the clinical picture this is the most likely etiology so far in my opinion. They were advised that if this was a cause, then it should typically be self-limiting and start to show improvement as the patient's clinical condition improved. Treatment would be essentially supportive, try to keep hemoglobin greater than 7, and platelets greater than 10, unless there was obvious bleeding - A primary bone marrow process. Given the acute onset of symptoms, including B symptoms suggest fever and chills, this type presentation would normally only be associated with an aggressive process such as an acute leukemia.. However in that case, the white blood cell count would also be expected to be affected. Her white count is normal, with a totally normal differential. Also typically for those process, LDH would be expected to be much higher. Therefore this is felt to be less likely, not ruled out at this time. I therefore recommended that at this time we continue close observation with supportive treatment. If counts did not show improvement over the next 2-3 days, or showed deterioration, bone marrow would be planned. All the questions were answered in detail. They were agreeable to the above. Case was also discussed in detail with the admitting service. Current Visit: Yes Status: Acute Code(s): D75.89 - OTHER SPECIFIED DISEASES OF BLOOD AND BLOOD-FORMING ORGANS SNOMED Code(s): 00048733 (2) SIRS (systemic inflammatory response syndrome) Narrative/Plan: The patient's presentation assistive of the same, with fever, chills and other symptoms as noted previously. Currently hemodynamics are stable. She was more short of breath yesterday but this was probably related to fluid overload for transfusion. Cultures are negative so far. Parvovirus serology was also ordered which is pending. Continue antibiotic according to the admitting service. Current Visit: Yes Status: Acute Code(s): R65.10 - SIRS OF NON-INFECTIOUS ORIGIN W/O ACUTE ORGAN DYSFUNCTION SNOMED Code(s): 289910604
--- NOTE | 2018-10-21 23:10 | P.PN ---
Subjective Progress Note Date: 10/21/18 Principal diagnosis: This is an 83 year old female that was admitted for possible bilateral bronchopneumonia, severe thrombocytopenia and anemia and is being followed closely. Due to the complex multiple medical issues, multiple consultations are following. Patient is sitting up in bed in no acute distress stating that her breathing has slightly improved. Patient was given a dose of IV lasix today per pullmonary and is feeling better. Patient denies any chest pain, palpitations or fever today. Patient denies any nausea or vomiting and is tolerating diet today. Patient prognosis is guarded. Objective - Vital Signs Vital signs: Vital Signs Temp 98 F 10/21/18 09:05 Pulse 100 10/21/18 12:08 Resp 18 10/21/18 11:05 BP 112/55 10/21/18 09:05 Pulse Ox 92 L 10/21/18 09:05 Intake & Output 10/20/18 10/21/18 10/21/18 18:59 06:59 18:59 Intake Total 400 580 Output Total 1475 Balance 400 -895 Weight 70.3 kg Intake: Intake, IV Titration 400 100 Amount Cefepime 2 gm In Sodium 100 Chloride 0.9% 100 ml @ 200 mls/hr IVPB Q12HR [facility] Rx#:[id number] cefTRIAXone 1 gm In 400 Sodium Chloride 0.9% 50 ml @ 100 mls/hr IVPB Q24HR [facility] Rx#:[id number] Oral 480 Output: Urine 1475 Other: Voiding Method Bedside Commode Bedside Commode Bedside Commode # Voids 3 1 1 # Bowel Movements 1 1 - Exam Gen: This is a 83year old female sitting up in bed in no acute distress with family at the bedside. Vital signs are stable. Blood pressure is 112/55 , pulse is 86, resp are 20, temp is 98.0 F, and oxygen saturation is 92 % on 5L via NC HEENT: Head is atraumatic, normocephalic. Pupils equal, round. Sclerae is anicteric. NECK: Supple. No JVD. No lymphadenopathy. No thyromegaly. LUNGS: Diminished breath sounds at the bases with a few scattered rhonchi and crackles noted. No intercostal retractions. HEART: S1, S2 are muffled No murmur. ABDOMEN: Soft. Bowel sounds are present. No masses. No tenderness. EXTREMITIES: No pedal edema. No calf tenderness. NEUROLOGICAL: Patient is awake, alert and oriented x3. Cranial nerves 2 through 12 are grossly intact. - Labs CBC & Chem 7: 10/21/18 05:48 10/21/18 17:34 Labs: Abnormal Lab Results - Last 24 Hours (Table) 10/20/18 10/21/18 10/21/18 Range/Units 15:58 05:48 05:48 RBC 2.01 L (3.80-5.40) m/uL Hgb 7.2 L (11.4-16.0) gm/dL Hct 21.3 L (34.0-46.0) % MCV 105.7 H (80.0-100.0) fL MCH 35.7 H (25.0-35.0) pg RDW 17.3 H (11.5-15.5) % Plt Count 17 L* (150-450) k/uL Lymphocytes # 0.9 L (1.0-4.8) k/uL Macrocytosis Marked A Sodium 135 L (137-145) mmol/L Potassium 3.2 L (3.5-5.1) mmol/L Creatinine 0.48 L (0.52-1.04) mg/dL Glucose 111 H (74-99) mg/dL POC Glucose (mg/dL) 145 H (75-99) mg/dL Calcium 8.3 L (8.4-10.2) mg/dL Total Bilirubin 2.2 H (0.2-1.3) mg/dL AST 49 H (14-36) U/L ALT 53 H (9-52) U/L Total Protein 5.8 L (6.3-8.2) g/dL Albumin 3.2 L (3.5-5.0) g/dL Procalcitonin (0.02-0.09) ng/mL 10/21/18 10/21/18 Range/Units 05:48 13:04 RBC (3.80-5.40) m/uL Hgb (11.4-16.0) gm/dL Hct (34.0-46.0) % MCV (80.0-100.0) fL MCH (25.0-35.0) pg RDW (11.5-15.5) % Plt Count (150-450) k/uL Lymphocytes # (1.0-4.8) k/uL Macrocytosis Sodium (137-145) mmol/L Potassium 3.0 L (3.5-5.1) mmol/L Creatinine (0.52-1.04) mg/dL Glucose (74-99) mg/dL POC Glucose (mg/dL) (75-99) mg/dL Calcium (8.4-10.2) mg/dL Total Bilirubin (0.2-1.3) mg/dL AST (14-36) U/L ALT (9-52) U/L Total Protein (6.3-8.2) g/dL Albumin (3.5-5.0) g/dL Procalcitonin 0.11 H (0.02-0.09) ng/mL Microbiology - Last 24 Hours (Table) 10/18/18 15:02 Blood Culture - Preliminary Blood No Growth after 48 hours 10/19/18 01:22 Urine Culture - Final Urine,Voided Assessment and Plan Assessment: Possible bilateral bronchopneumonia or interstitial pneumonia, right more than the left with possible bilateral pneumonia Severe thrombocytopenia, undetermined etiology. Rule out idiopathic thrombocytopenia purpura or viral-induced thrombocytopenia Anemia, macrocytic anemia undetermined etiology, status post blood transfusions Increased random blood sugars increased total bilirubin Hypokalemia History of degenerative joint disease hypothyroidism History of corneal transplants History of cataracts Recommendations and discussion: Recommend continue current medications, management, and symptomatically treatment. We will continue to follow and monitor the patient closely. Current hemoglobin is 7.2 today and platelets are 17. Current potassium is 3.0 and being replaced. Will repeat labs in the a.m. Continue with current IV antibiotics of cefepime. Pulmonary and hematology oncology are following closely. Urine and blood cultures are negative thus far. Due to the multiple complex medical issues, prognosis is guarded. Further recommendations to follow.
--- NOTE | 2018-10-22 06:00 | PN ---
PROGRESS NOTE DATE OF SERVICE: 10/21/2018 REASON FOR FOLLOWUP: Pneumonia. INTERVAL HISTORY: The patient is afebrile. The patient is breathing comfortably compared to yesterday. The patient continued to have a cough which is dry in nature. No chest pain. No nausea, no vomiting. No abdominal pain. No diarrhea. PHYSICAL EXAMINATION: On examination, blood pressure is 128/58 with a pulse of 98, temperature of 97.8. She is 95% on 4 L of nasal cannula. General description is an elderly female up in the bed in no distress. RESPIRATORY SYSTEM: Unlabored breathing with decreased intensity of breath sounds. No wheeze. HEART: S1, S2. Regular rate and rhythm. ABDOMEN: Soft: No tenderness. EXTREMITIES: No edema of the feet. LABS: Hemoglobin 7.2,, white count 5.1 with a BUN 15, creatinine 0.48. DIAGNOSTIC IMPRESSION AND PLAN: Patient with a fever respiratory symptoms with concern for possible pneumonia. Patient in fact shows some clinical improvement with to continue. Workup has been negative so far as far as etiology and monitor clinical course closely. Continue with supportive care. MMODL / IJN: [id number] /
[2018-10-22] MEDS: PANTOPRAZOLE 40 MG TABLET PO SCH (06:14)
[2018-10-22] MEDS: LEVOTHYROXINE 88 MCG TAB PO SCH (06:14)
[2018-10-22] MEDS: IPRATROPIUM-ALBUTEROL 3 ML NEB INHALATION SCH ×5 (07:26→19:53)
[2018-10-22 07:42] LABS: African American GFR (CKD) >90 (>60 ml/min/1.73 sqM); Anion Gap 5 mmol/L; Blood Urea Nitrogen 19 mg/dL (7-17); Calcium 8.5 mg/dL (8.4-10.2); Carbon Dioxide 28 mmol/L (22-30); Chloride 103 mmol/L (98-107); Glucose 110 mg/dL (74-99); Potassium 4.1 mmol/L (3.5-5.1); Sodium 136 mmol/L (137-145)
[2018-10-22 07:50] LABS: Anisocytosis Slight; Basophils % (A) 0 %; Eosinophils # (A) 0.1 k/uL (0-0.7); Eosinophils % (A) 2 %; HCT 20.3 % (34.0-46.0); Lymphocytes # (A) 0.8 k/uL (1.0-4.8); Lymphocytes % (A) 20 %; MCHC 32.9 g/dL (31.0-37.0); MCV 106.4 fL (80.0-100.0); Macrocytosis Marked; Mean Platelet Volume 8.8; Monocytes # (A) 0.2 k/uL (0-1.0); Monocytes % (A) 4 %; Neutrophils % (A) 72 %; RBC 1.91 m/uL (3.80-5.40); RDW 17.1 % (11.5-15.5); WBC 4.1 k/uL (3.8-10.6)
[2018-10-22 07:51] LABS: Platelet Count 14 k/uL (150-450)
[2018-10-22 07:52] LABS: HGB 6.7 gm/dL (11.4-16.0)
[2018-10-22] MEDS: CEFEPIME 2 GM in SODIUM CHLORIDE 0.9% 100 ML IVPB SCH ×2 (09:06→22:10)
[2018-10-22] MEDS: MULTIVITAMINS, THERA 1 EACH TAB PO SCH (09:07)
[2018-10-22] MEDS: LEVOFLOXACIN 750 MG TAB PO SCH (09:07)
[2018-10-22] MEDS: prednisoLONE ACETATE 1% OPHTH DROPS 5 ML BTL BOTH EYES SCH (12:10)
[2018-10-22] MEDS: FUROSEMIDE 10 MG/ML 4 ML VIAL IV SCH ×2 (14:20→22:09)
--- NOTE | 2018-10-22 14:47 | P.PN ---
Subjective Progress Note Date: 10/22/18 Principal diagnosis: Cytopenias Type and screen and transfuse PRBC today, plan BM biopsy tomorrow 12:30 Objective - Vital Signs Vital signs: Vital Signs Temp 98.2 F 10/22/18 13:18 Pulse 90 10/22/18 13:18 Resp 18 10/22/18 13:18 BP 117/57 10/22/18 13:18 Pulse Ox 97 10/22/18 13:18 Intake & Output 10/21/18 10/22/18 10/22/18 18:59 06:59 18:59 Intake Total 940 100 730 Output Total 1475 Balance -535 100 730 Weight 70.7 kg Intake: Intake, IV Titration 100 100 Amount Cefepime 2 gm In Sodium 100 100 Chloride 0.9% 100 ml @ 200 mls/hr IVPB Q12HR [facility] Rx#:[id number] Oral 840 420 Blood Product 310 Rc As-1 Unit 310 [id number] Output: Urine 1475 Other: Voiding Method Toilet Toilet Bedside Commode Bedside Commode # Voids 1 1 # Bowel Movements 1 - Exam - Constitutional General appearance: average body habitus, cooperative, no acute distress - EENT Eyes: anicteric sclerae, EOMI, normal appearance ENT: hearing grossly normal, normal oropharynx - Neck Neck: no lymphadenopathy - Respiratory Respiratory: right: diminished (RML), bilateral: CTA - Cardiovascular Rhythm: regular Heart sounds: normal: S1, S2 Abnormal Heart Sounds: no systolic murmur, no diastolic murmur, no rub, no S3 Gallop, no S4 Gallop, no click, no other leg Peripheral Edema: bilateral: None - Gastrointestinal General gastrointestinal: no absent bowel sounds, no decreased bowel sounds, no distended, no hepatomegaly, no hyperactive bowel sounds, normal bowel sounds, no organomegaly, no rigid, no scaphoid, soft, no splenomegaly, no tenderness, no umbilical hernia, no ventral hernia - Integumentary Scattered bruises on the extremities, bilateral shins have some scattered petechiae, no hematomas Integumentary: normal turgor - Neurologic Neurologic: CNII-XII intact - Musculoskeletal Musculoskeletal: strength equal bilaterally - Psychiatric Psychiatric: A&O x's 3, appropriate affect, intact judgment & insight - Labs CBC & Chem 7: 10/22/18 20:17 10/22/18 06:54 Labs: Abnormal Lab Results - Last 24 Hours (Table) 10/22/18 10/22/18 10/22/18 Range/Units 06:54 06:54 08:45 RBC 1.91 L (3.80-5.40) m/uL Hgb 6.7 L* (11.4-16.0) gm/dL Hct 20.3 L (34.0-46.0) % MCV 106.4 H (80.0-100.0) fL RDW 17.1 H (11.5-15.5) % Plt Count 14 L* (150-450) k/uL Lymphocytes # 0.8 L (1.0-4.8) k/uL Macrocytosis Marked A Sodium 136 L (137-145) mmol/L BUN 19 H (7-17) mg/dL Glucose 110 H (74-99) mg/dL Crossmatch See Detail Microbiology - Last 24 Hours (Table) 10/18/18 15:02 Blood Culture - Preliminary Blood No Growth after 72 hours Assessment and Plan Plan: Assessment and Plan Sudden onset Bicytopenia: - Likely secondary to underlying infectious process, possible component ITP - Less likely due to Hemolysis or Bone marrow disorder - No Schistocytes Anemia - Macrocytic - Was recently started on Iron PO prior to hospitalization. Thrombocytopenia: - Monitor for s/s bleeding - Transfuse less than 10 - No AC therapy, ASA, or NSAIDS Plan: -Planning Bone Marrow Biopsy 10.23.18 - Transfuse PRBC today - Scheduled 12:30 tomorrow - Discussed procedure with patient and family, all questions answered ABBIE Jaramillo
--- NOTE | 2018-10-22 15:25 | P.PN ---
Subjective Progress Note Date: 10/22/18 This is a pleasant 83-year-old female with no prior documented history of hypertension, no diabetes, she does have hyperlipidemia, and has ALLERGY to statins, history of hypothyroidism, degenerative joint disease, cataracts, and history of corneal transplant. Overall the patient's health has been excellent according to her. Since Saturday of last week, her daughter has noticed her to be much more tired and fatigued than usual, on the patient noticed herself to have developed a cough, she was very weak, had chills with associated sweating, and felt somewhat short of breath. Patient states she has noticed over the past couple of weeks to bruise more easily than usual. She went to see her primary care doctor, she was seen in the office by the nurse practitioner on that visit and lab tests as well as a chest x-ray had been requested. Subsequent to that she did receive a call primary care physician to come to the hospital for further evaluation. It was noted that her lab tests were significantly abnormal. Laboratory data done at [facility], hemoglobin 7.7, white blood cell count 7.1, TSH is 0.3 free T4 1 0.4, BUN 16 and creatinine 0.6 sodium 141, potassium 4.1, CO2 26. Chest x-ray on arrival here showed a mild infiltrate in the right midlung, no heart failure. EKG on arrival here showed a normal sinus rhythm with a left bundle-branch block pattern and nonspecific ST-T wave changes. Repeat chest x-ray showed developing alveolar edema and/or infiltrates most prominent in the right midlung region. Background bilateral diffuse interstitial edema and/or infiltrates. Subsequent x-ray showed diffuse increased lung markings suspicious for edema. Findings are worsening. Infectious etiologies should be considered. Chest x-ray today showed correlation for heart failure or interstitial pneumonitis. Superimposed right upper lobe pneumonia or pulmonary edema and differential diagnosis. Laboratory data reviewed here, hemoglobin on presentation here 7.9, it did go down to 6 and patient received a blood transfusion, it is 7.2 this morning. Platelet count down to 12, 17 this morning, sodium 135, potassium 3.2, BUN 15, creatinine 0.4. Fibrinogen 626, d-dimer 1.69. Iron saturation 21.8, total bilirubin 2.2 AST 49 ALT 53 02 TROPONINS 0.014, 0.031, 0.024. C-REACTIVE PROTEIN 143. BNP LEVEL [id number] WHICH IS NORMAL FOR THE PATIENT'S AGE. Stool for occult blood was negative for influenza A and B-. Urine Legionella was not detected. Patient did have a temperature of 101 last evening. Her blood pressure this morning 128/58 with a heart rate in the 80s, 93% on 5 L of oxygen. It was noted through the night that the patient's heart rate would go up into the [birth year]17[birth year]1929 range, EKG and rhythm strips show sinus tachycardia with occasional PACs. For this reason a cardiology consultation had been requested. At the time of my examination this morning, patient continues to feel fatigued and tired. She did receive a blood transfusion. 10/22/2018 Patient was seen and examined this morning, she states last evening that she felt very well today again she is complaining of feeling extremely fatigued. Her breathing overall is stable. Echocardiogram with Doppler study was performed which revealed an ejection fraction of 45-50%. Mitral Doppler inflow pattern suggest diastolic filling abnormality, moderate mitral regurgitation. Let pressure 118/50 with a heart rate in the 90s, 97% on 5 L of oxygen. White blood cell count 4.1, hemoglobin today is 6.7, platelet count 14, sodium 136, BUN 19 and creatinine 0.5. Objective - Vital Signs Vital signs: Vital Signs Temp 98.2 F 10/22/18 13:18 Pulse 90 10/22/18 13:18 Resp 18 10/22/18 13:18 BP 117/57 10/22/18 13:18 Pulse Ox 97 10/22/18 13:18 Intake & Output 10/21/18 10/22/18 10/22/18 18:59 06:59 18:59 Intake Total 940 100 730 Output Total 1475 Balance -535 100 730 Weight 70.7 kg Intake: Intake, IV Titration 100 100 Amount Cefepime 2 gm In Sodium 100 100 Chloride 0.9% 100 ml @ 200 mls/hr IVPB Q12HR [facility] Rx#:[id number] Oral 840 420 Blood Product 310 Rc As-1 Unit 310 [id number] Output: Urine 1475 Other: Voiding Method Toilet Toilet Bedside Commode Bedside Commode # Voids 1 1 # Bowel Movements 1 - Exam PHYSICAL EXAMINATION: GENERAL: 83-year-old female in no acute distress at the time of my examination HEENT: Head is atraumatic, normocephalic. Pupils equal, round. Sclera anicteric. Conjunctiva are clear. Mucous membranes of the mouth are moist. Neck is supple. There is no elevated jugular venous pressure. No carotid bruit is heard. HEART EXAMINATION: Heart S1 S2 1 systolic murmur is heard CHEST EXAMINATION: Lungs reveal scattered crackles throughout. ABDOMEN: Soft, nontender. Bowel sounds are heard. No organomegaly noted. EXTREMITIES: 2+ peripheral pulses with no evidence of peripheral edema and no calf tenderness noted. NEUROLOGIC patient is awake, alert and oriented 3 . . - Labs CBC & Chem 7: 10/22/18 06:54 10/22/18 06:54 Labs: Abnormal Lab Results - Last 24 Hours (Table) 10/22/18 10/22/18 10/22/18 Range/Units 06:54 06:54 08:45 RBC 1.91 L (3.80-5.40) m/uL Hgb 6.7 L* (11.4-16.0) gm/dL Hct 20.3 L (34.0-46.0) % MCV 106.4 H (80.0-100.0) fL RDW 17.1 H (11.5-15.5) % Plt Count 14 L* (150-450) k/uL Lymphocytes # 0.8 L (1.0-4.8) k/uL Macrocytosis Marked A Sodium 136 L (137-145) mmol/L BUN 19 H (7-17) mg/dL Glucose 110 H (74-99) mg/dL Crossmatch See Detail Microbiology - Last 24 Hours (Table) 10/18/18 15:02 Blood Culture - Preliminary Blood No Growth after 72 hours Assessment and Plan Plan: Assessment and plan #1 significant anemia with associated thrombocytopenia, new onset, unclear etiology. Hematology is following. Patient did receive blood transfusion. #2 diffuse bilateral infiltrates, suggesting possible pneumonia, patient is on antibiotics. BNP level normal for the patient's age. #3 hypothyroidism #4 degenerative joint disease #5 hyperlipidemia, ALLERGIC to statins #6 hyperkalemia Plan Patient will be seen receiving another blood transfusion today because the hemoglobin is down to 6.2. Her echo showed a normal LV function with moderate mitral regurgitation. We did review an echo that was done as an outpatient, mary joshi did have a left bundle-branch block pattern previously. We will follow this patient with you now on an as-needed basis only, please don't hesitate to call with any questions. DNP note has been reviewed, I agree with a documented findings and plan of care. Patient was seen and examined.
--- NOTE | 2018-10-22 16:09 | P.PN ---
Subjective Progress Note Date: 10/22/18 Principal diagnosis: Acute hypoxic respiratory failure secondary to profound anemia, fluid volume overload The patient is seen today 10/21/2018 in follow-up on the selective care unit. She is currently awake and alert in no acute distress. Breathing easier today as compared to yesterday. Still requiring 5 L high flow nasal cannula to maintain O2 saturation in the low 90s. She's been afebrile. Hemodynamically stable. She is status post 1 unit of packed red blood cells. One unit of platelets. Current hemoglobin 7.2. Platelet count 17,000. Blood culture reveals no growth. Urine culture reveals no growth. White count 5.1. Creatinine 0.48. Remains on bronchodilators, antibiotics in the form of cefepime. Chest x-ray shows evidence of congestive heart failure versus interstitial pneumonitis. She'll be given Lasix 40 mg IVP 1 today. On 10/22/2018 patient is seen in follow-up on selective care unit, she is currently down to 5 L of oxygen with a pulse ox of 96%, she is afebrile, hemodynamically stable, this morning she received another unit of blood for h emoglobin of 6.7, her platelet count was 14. This was followed by a dose of Lasix. So far the urine and blood cultures remain negative, we were unable to send the sputum culture, patient is on empiric antibiotics, currently on cefepime and Levaquin, no fever or chills, no cough or congestion. Hematology is following, and is planning on bone marrow biopsy tomorrow at 12:30. We will obtain a follow-up chest x-ray tomorrow as well. Objective - Vital Signs Vital signs: Vital Signs Temp 97.9 F 10/22/18 15:59 Pulse 95 10/22/18 15:59 Resp 22 10/22/18 15:59 BP 121/59 10/22/18 15:59 Pulse Ox 96 10/22/18 15:59 Intake & Output 10/21/18 10/22/18 10/22/18 18:59 06:59 18:59 Intake Total 940 100 730 Output Total 1475 Balance -535 100 730 Weight 70.7 kg Intake: Intake, IV Titration 100 100 Amount Cefepime 2 gm In Sodium 100 100 Chloride 0.9% 100 ml @ 200 mls/hr IVPB Q12HR [facility] Rx#:[id number] Oral 840 420 Blood Product 310 Rc As-1 Unit 310 [id number] Output: Urine 1475 Other: Voiding Method Toilet Toilet Toilet Bedside Commode Bedside Commode Bedside Commode # Voids 1 1 # Bowel Movements 1 - Exam GENERAL EXAM: Alert, pleasant, 83-year-old white female, on 5 L of oxygen and the pulse ox of 96% comfortable in no apparent distress. HEAD: Normocephalic/atraumatic. EYES: Normal reaction of pupils, equal size. Conjunctiva pink, sclera white. NOSE: Clear with pink turbinates. THROAT: No erythema or exudates. NECK: No masses, no JVD, no thyroid enlargement, no adenopathy. CHEST: No chest wall deformity. Symmetrical expansion. LUNGS: Equal air entry with bibasilar crackles CVS: Regular rate and rhythm, normal S1 and S2, no gallops, no murmurs, no rubs ABDOMEN: Soft, nontender. No hepatosplenomegaly, normal bowel sounds, no guarding or rigidity. EXTREMITIES: No clubbing, no edema, no cyanosis, 2+ pulses and upper and lower extremities. MUSCULOSKELETAL: Muscle strength and tone normal. SPINE: No scoliosis or deformity SKIN: No rashes CENTRAL NERVOUS SYSTEM: Alert and oriented -3. No focal deficits, tone is normal in all 4 extremities. PSYCHIATRIC: Alert and oriented -3. Appropriate affect. Intact judgment and insight. - Labs CBC & Chem 7: 10/22/18 06:54 10/22/18 06:54 Labs: Abnormal Lab Results - Last 24 Hours (Table) 10/22/18 10/22/18 10/22/18 Range/Units 06:54 06:54 08:45 RBC 1.91 L (3.80-5.40) m/uL Hgb 6.7 L* (11.4-16.0) gm/dL Hct 20.3 L (34.0-46.0) % MCV 106.4 H (80.0-100.0) fL RDW 17.1 H (11.5-15.5) % Plt Count 14 L* (150-450) k/uL Lymphocytes # 0.8 L (1.0-4.8) k/uL Macrocytosis Marked A Sodium 136 L (137-145) mmol/L BUN 19 H (7-17) mg/dL Glucose 110 H (74-99) mg/dL Crossmatch See Detail Microbiology - Last 24 Hours (Table) 10/18/18 15:02 Blood Culture - Preliminary Blood No Growth after 72 hours Assessment and Plan Plan: Assessment: #1. Acute hypoxic respiratory failure secondary to significant anemia and thrombocytopenia, diffuse bilateral infiltrates right greater than the left with evidence of fluid volume overload versus pneumonia #2. Anemia with thrombocytopenia of unclear etiology, requiring transfusion with packed red blood cells and platelets, infectious etiology is being considered, cultures remain negative, there has been no fever, pro-calcitonin is negative #3. Hypothyroidism #4. Degenerative joint disease #5. Osteoporosis Plan: We'll continue current medical treatment, continue antibiotics per ID service recommendations, cultures remain negative thus far, no cough or congestion, patient is afebrile, pro-calcitonin level is low making the possibility of infectious etiology of the anemia thrombocytopenia unlikely, agree with bone marrow biopsy, we'll obtain a follow-up chest x-ray tomorrow, wean FiO2 increase activity as tolerated I performed a history & physical examination of the patient and discussed their management with my nurse practitioner, Valencia Mcallister. I reviewed the nurse practitioner's note and agree with the documented findings and plan of care. Lung sounds are positive for bibasilar crackles. The findings and the impression was discussed with the patient. I attest to the documentation by the nurse practitioner. Time with Patient: Less than 30
--- NOTE | 2018-10-22 16:15 | P.PN ---
Subjective Progress Note Date: 10/22/18 Principal diagnosis: This is an 83 year old female that was admitted for possible bilateral bronchopneumonia, severe thrombocytopenia and anemia and is being followed closely. Due to the complex multiple medical issues, multiple consultations are following. Patient is sitting up in bed in no acute distress stating that her breathing has slightly improved. Patient was given a dose of IV lasix today per pullmonary and is feeling better. Patient denies any chest pain, palpitations or fever today. Patient denies any nausea or vomiting and is tolerating diet today. Patient prognosis is guarded. 10/22/2018 Patient is sitting up in bed in no acute distress. Family members at the bedside. Patient's hemoglobin this morning was 6.7 is currently receiving 1 unit of packed red blood cells. Will continue to monitor. Hematology oncology is following. The plan is for a bone marrow biopsy tomorrow afternoon. Patient is still requiring 5 L of oxygen via nasal cannula as she normally doesn't require any oxygen at home. Will add IV Lasix 40 mg twice a day and monitor closely. Patient denies any chest pain, shortness of breath, or palpitations at this time. Patient is able to converse without becoming winded. Patient states that she is still coughing but is unable to expectorate any mucus or phlegm. Pulmonary and cardiology are following as well. Guarded prognosis. Objective - Vital Signs Vital signs: Vital Signs Temp 97.9 F 10/22/18 15:59 Pulse 95 10/22/18 15:59 Resp 22 10/22/18 15:59 BP 121/59 10/22/18 15:59 Pulse Ox 96 10/22/18 15:59 Intake & Output 10/21/18 10/22/18 10/22/18 18:59 06:59 18:59 Intake Total 940 100 730 Output Total 1475 100 Balance -535 100 630 Weight 70.7 kg Intake: Intake, IV Titration 100 100 Amount Cefepime 2 gm In Sodium 100 100 Chloride 0.9% 100 ml @ 200 mls/hr IVPB Q12HR [facility] Rx#:[id number] Oral 840 420 Blood Product 310 Rc As-1 Unit 310 [id number] Output: Urine 1475 100 Other: Voiding Method Toilet Toilet Toilet Bedside Commode Bedside Commode Bedside Commode # Voids 1 1 # Bowel Movements 1 - Exam Gen: This is a 83year old female sitting up in bed in no acute distress with family at the bedside. Vital signs are stable. Blood pressure is 113/52 , pulse is 92, resp are 16, temp is 97.9 F, and oxygen saturation is 93 % on 5L via NC HEENT: Head is atraumatic, normocephalic. Pupils equal, round. Sclerae is anicteric. NECK: Supple. No JVD. No lymphadenopathy. No thyromegaly. LUNGS: Diminished breath sounds at the bases with a few scattered rhonchi and crackles noted. No intercostal retractions. HEART: S1, S2 are muffled No murmur. ABDOMEN: Soft. Bowel sounds are present. No masses. No tenderness. EXTREMITIES: No pedal edema. No calf tenderness. NEUROLOGICAL: Patient is awake, alert and oriented x3. Cranial nerves 2 through 12 are grossly intact. - Labs CBC & Chem 7: 10/22/18 06:54 10/22/18 06:54 Labs: Abnormal Lab Results - Last 24 Hours (Table) 10/22/18 10/22/18 10/22/18 Range/Units 06:54 06:54 08:45 RBC 1.91 L (3.80-5.40) m/uL Hgb 6.7 L* (11.4-16.0) gm/dL Hct 20.3 L (34.0-46.0) % MCV 106.4 H (80.0-100.0) fL RDW 17.1 H (11.5-15.5) % Plt Count 14 L* (150-450) k/uL Lymphocytes # 0.8 L (1.0-4.8) k/uL Macrocytosis Marked A Sodium 136 L (137-145) mmol/L BUN 19 H (7-17) mg/dL Glucose 110 H (74-99) mg/dL Crossmatch See Detail Microbiology - Last 24 Hours (Table) 10/18/18 15:02 Blood Culture - Preliminary Blood No Growth after 72 hours Assessment and Plan Assessment: Possible bilateral bronchopneumonia or interstitial pneumonia, right more than the left with possible bilateral pneumonia Severe thrombocytopenia, undetermined etiology. Rule out idiopathic thrombocyto penia purpura or viral-induced thrombocytopenia; platelets today are 14 Anemia, macrocytic anemia undetermined etiology, status post blood transfusions; hemoglobin today is 6.7 receiving 1 unit of PRBCs Increased random blood sugars increased total bilirubin Hypokalemia, improved current potassium is 4.1 History of degenerative joint disease hypothyroidism History of corneal transplants History of cataracts Recommendations and discussion: Recommend continue current medications, management, and symptomatically treatment. We will continue to follow and monitor the patient closely. Current hemoglobin is 6.7 today and platelets are 14. Hematology oncology is aware. Current potassium is 4.1. Will repeat labs in the a.m. Continue with current IV antibiotics of cefepime. Patient was placed on IV Lasix and will continue to monitor vital signs and labs closely. Pulmonary and hematology oncology are following closely. Urine and blood cultures are negative thus far. Patient is scheduled to have a bone marrow biopsy tomorrow. Due to the multiple complex medical issues, prognosis is guarded. Further recommendations to follow.
[2018-10-22 21:00] LABS: Anisocytosis Slight; Basophils % (A) 0 %; Eosinophils # (A) 0.1 k/uL (0-0.7); Eosinophils % (A) 3 %; HCT 26.4 % (34.0-46.0); Lymphocytes # (A) 1.7 k/uL (1.0-4.8); Lymphocytes % (A) 37 %; MCH 32.9 pg (25.0-35.0); MCHC 32.3 g/dL (31.0-37.0); MCV 101.9 fL (80.0-100.0); Macrocytosis Moderate; Mean Platelet Volume 8.3; Monocytes # (A) 0.2 k/uL (0-1.0); Monocytes % (A) 5 %; Neutrophils # (A) 2.4 k/uL (1.3-7.7); Neutrophils % (A) 54 %; RBC 2.59 m/uL (3.80-5.40); RDW 18.3 % (11.5-15.5); WBC 4.5 k/uL (3.8-10.6)
[2018-10-22 21:12] LABS: Platelet Count 13 k/uL (150-450)
[2018-10-22 21:13] LABS: HGB 8.5 gm/dL (11.4-16.0)
[2018-10-23] MEDS: PANTOPRAZOLE 40 MG TABLET PO SCH (06:09)
[2018-10-23] MEDS: LEVOTHYROXINE 88 MCG TAB PO SCH (06:09)
--- NOTE | 2018-10-23 07:05 | PN ---
PROGRESS NOTE DATE OF SERVICE: 10/22/2018 REASON FOR FOLLOWUP: Possible pneumonia. INTERVAL HISTORY: The patient is currently afebrile. Patient's breathing has improved. The patient denies having any chest pain. Minimal cough, no sputum. No nausea. No diarrhea. PHYSICAL EXAMINATION: On examination, blood pressure is 117/57 with a pulse of 86, temperature 98.4. She is 93% on 4 L nasal cannula. General description is an elderly female up in the bed in no distress. RESPIRATORY SYSTEM: Unlabored breathing, decreased intensity of breath sounds. No wheeze. HEART: S1, S2. Regular rate and rhythm. ABDOMEN: Soft, no tenderness. EXTREMITIES: No edema of feet. LABS: Hemoglobin 8.5, white count 4.5, BUN of 19, creatinine 0.56. DIAGNOSTIC IMPRESSION AND PLAN: Patient admitted to the hospital with possible difficulty breathing, which is likely multifactorial in this patient who did have a fever with concern for possible pneumonia. Currently covered with Levaquin, cefepime and did have some clinical improvement, to continue. Will monitor clinical course and culture closely. Continue supportive care. MMODL / IJN: [id number] /
[2018-10-23 07:27] LABS: Anisocytosis Slight; Basophils % (A) 0 %; Eosinophils # (A) 0.2 k/uL (0-0.7); Eosinophils % (A) 4 %; HCT 26.3 % (34.0-46.0); HGB 8.8 gm/dL (11.4-16.0); Lymphocytes # (A) 1.3 k/uL (1.0-4.8); Lymphocytes % (A) 31 %; MCH 34.5 pg (25.0-35.0); MCHC 33.5 g/dL (31.0-37.0); MCV 102.9 fL (80.0-100.0); Macrocytosis Moderate; Mean Platelet Volume 8.8; Monocytes # (A) 0.2 k/uL (0-1.0); Monocytes % (A) 4 %; Neutrophils # (A) 2.5 k/uL (1.3-7.7); Neutrophils % (A) 60 %; RBC 2.56 m/uL (3.80-5.40); RDW 18.1 % (11.5-15.5); WBC 4.2 k/uL (3.8-10.6)
[2018-10-23 07:33] LABS: Platelet Count 14 k/uL (150-450)
[2018-10-23 07:40] LABS: INR 0.9 (<1.2)
[2018-10-23 07:47] LABS: ALT 71 U/L (9-52); AST 52 U/L (14-36); African American GFR (CKD) >90 (>60 ml/min/1.73 sqM); Albumin 3.3 g/dL (3.5-5.0); Alkaline Phosphatase 117 U/L (38-126); Anion Gap 7 mmol/L; Blood Urea Nitrogen 19 mg/dL (7-17); Calcium 8.9 mg/dL (8.4-10.2); Carbon Dioxide 28 mmol/L (22-30); Chloride 102 mmol/L (98-107); Glucose 104 mg/dL (74-99); Potassium 3.8 mmol/L (3.5-5.1); Sodium 137 mmol/L (137-145); Total Bilirubin 1.9 mg/dL (0.2-1.3); Total Protein 5.9 g/dL (6.3-8.2)
[2018-10-23] MEDS: IPRATROPIUM-ALBUTEROL 3 ML NEB INHALATION SCH ×4 (09:13→19:24)
[2018-10-23] MEDS: FUROSEMIDE 10 MG/ML 4 ML VIAL IV SCH ×2 (09:16→15:19)
[2018-10-23] MEDS: CEFEPIME 2 GM in SODIUM CHLORIDE 0.9% 100 ML IVPB SCH ×2 (09:17→20:00)
--- NOTE | 2018-10-23 10:40 | XR ---
EXAMINATION TYPE: XR chest 1V portable DATE OF EXAM: 10/23/2018 COMPARISON: 10/21/2018 HISTORY: Shortness of breath TECHNIQUE: Single frontal view of the chest is obtained. FINDINGS: Heart size is stable. Atherosclerotic change aorta. Interstitial pattern seen with subsegm ental areas of consolidation. No sizable pleural effusion. No pneumothorax. IMPRESSION: 1. Correlate for CHF or interstitial pneumonitis. Superimposed right upper lobe pneumonia or pulmonar y edema in the differential diagnosis. Findings are similar to the prior exam.
[2018-10-23] MEDS: prednisoLONE ACETATE 1% OPHTH DROPS 5 ML BTL BOTH EYES SCH (11:06)
[2018-10-23 11:13] LABS: Parvovirus B-19 IgG Antibodies 5.08 INDEX (<=0.90)
[2018-10-23 11:14] LABS: Parvovirus B-19 IgM Antibodies 0.83 INDEX (<=0.90)
--- NOTE | 2018-10-23 11:44 | P.PN ---
Subjective Progress Note Date: 10/23/18 Principal diagnosis: Acute hypoxic respiratory failure secondary to profound anemia, fluid volume overload The patient is seen today 10/21/2018 in follow-up on the selective care unit. She is currently awake and alert in no acute distress. Breathing easier today as compared to yesterday. Still requiring 5 L high flow nasal cannula to maintain O2 saturation in the low 90s. She's been afebrile. Hemodynamically stable. She is status post 1 unit of packed red blood cells. One unit of platelets. Current hemoglobin 7.2. Platelet count 17,000. Blood culture reveals no growth. Urine culture reveals no growth. White count 5.1. Creatinine 0.48. Remains on bronchodilators, antibiotics in the form of cefepime. Chest x-ray shows evidence of congestive heart failure versus interstitial pneumonitis. She'll be given Lasix 40 mg IVP 1 today. On 10/22/2018 patient is seen in follow-up on selective care unit, she is currently down to 5 L of oxygen with a pulse ox of 96%, she is afebrile, hemodynamically stable, this morning she received another unit of blood for h emoglobin of 6.7, her platelet count was 14. This was followed by a dose of Lasix. So far the urine and blood cultures remain negative, we were unable to send the sputum culture, patient is on empiric antibiotics, currently on cefepime and Levaquin, no fever or chills, no cough or congestion. Hematology is following, and is planning on bone marrow biopsy tomorrow at 12:30. We will obtain a follow-up chest x-ray tomorrow as well. On 10/23/2018 patient seen in follow-up on selective care unit, still remains on supplemental oxygen, currently down to 4 L, with a pulse ox of 94%. Still quite dyspneic with exertion, but no acute distress at rest, afebrile, no complaints of chest pain, hemodynamically stable, today's lab work has been reviewed showing white blood cell count of 4.2, hemoglobin of 8.8, and platelet count of 14, electrolytes and renal profile were unremarkable. Blood and urine and sputum cultures are negative thus far, patient is covered with empiric antibiotics, no fever or chills. No cough or congestion, follow-up chest x-ray showed interstitial changes, pneumonitis possibly CHF. Overall appears to be improved compared to last chest x-ray on 10/21/2018. Objective - Vital Signs Vital signs: Vital Signs Temp 97.8 F 10/23/18 08:00 Pulse 86 10/23/18 08:00 Resp 18 10/23/18 08:00 BP 131/61 10/23/18 08:00 Pulse Ox 94 L 10/23/18 08:00 Intake & Output 10/22/18 10/23/18 10/23/18 18:59 06:59 18:59 Intake Total 920 Output Total 800 Balance 120 Weight 69.8 kg Intake: Oral 610 Blood Product 310 Rc As-1 Unit 310 [id number] Output: Urine 800 Other: Voiding Method Toilet Toilet Bedside Commode Bedside Commode # Voids 2 - Exam GENERAL EXAM: Alert, pleasant, 83-year-old white female, on 4 L of oxygen and the pulse ox of 94% comfortable in no apparent distress. HEAD: Normocephalic/atraumatic. EYES: Normal reaction of pupils, equal size. Conjunctiva pink, sclera white. NOSE: Clear with pink turbinates. THROAT: No erythema or exudates. NECK: No masses, no JVD, no thyroid enlargement, no adenopathy. CHEST: No chest wall deformity. Symmetrical expansion. LUNGS: Equal air entry with bibasilar crackles CVS: Regular rate and rhythm, normal S1 and S2, no gallops, no murmurs, no rubs ABDOMEN: Soft, nontender. No hepatosplenomegaly, normal bowel sounds, no guarding or rigidity. EXTREMITIES: No clubbing, no edema, no cyanosis, 2+ pulses and upper and lower extremities. MUSCULOSKELETAL: Muscle strength and tone normal. SPINE: No scoliosis or deformity SKIN: No rashes CENTRAL NERVOUS SYSTEM: Alert and oriented -3. No focal deficits, tone is normal in all 4 extremities. PSYCHIATRIC: Alert and oriented -3. Appropriate affect. Intact judgment and insight. - Labs CBC & Chem 7: 10/23/18 05:48 10/23/18 05:48 Labs: Abnormal Lab Results - Last 24 Hours (Table) 10/20/18 10/22/18 10/22/18 Range/Units 11:24 08:45 20:17 RBC 2.59 L (3.80-5.40) m/uL Hgb 8.5 L D (11.4-16.0) gm/dL Hct 26.4 L (34.0-46.0) % MCV 101.9 H (80.0-100.0) fL RDW 18.3 H (11.5-15.5) % Plt Count 13 L* (150-450) k/uL BUN (7-17) mg/dL Glucose (74-99) mg/dL Total Bilirubin (0.2-1.3) mg/dL AST (14-36) U/L ALT (9-52) U/L Total Protein (6.3-8.2) g/dL Albumin (3.5-5.0) g/dL Parvovirus B19 IgG Ab 5.08 H (<=0.90) INDEX Crossmatch See Detail 10/23/18 10/23/18 Range/Units 05:48 05:48 RBC 2.56 L (3.80-5.40) m/uL Hgb 8.8 L (11.4-16.0) gm/dL Hct 26.3 L (34.0-46.0) % MCV 102.9 H (80.0-100.0) fL RDW 18.1 H (11.5-15.5) % Plt Count 14 L* (150-450) k/uL BUN 19 H (7-17) mg/dL Glucose 104 H (74-99) mg/dL Total Bilirubin 1.9 H (0.2-1.3) mg/dL AST 52 H (14-36) U/L ALT 71 H (9-52) U/L Total Protein 5.9 L (6.3-8.2) g/dL Albumin 3.3 L (3.5-5.0) g/dL Parvovirus B19 IgG Ab (<=0.90) INDEX Crossmatch Microbiology - Last 24 Hours (Table) 10/22/18 16:14 Gram Stain - Preliminary Sputum Sputum Culture - Preliminary 10/18/18 15:02 Blood Culture - Preliminary Blood No Growth after 96 hours Assessment and Plan Plan: Assessment: #1. Acute hypoxic respiratory failure secondary to significant anemia and thrombocytopenia, diffuse bilateral infiltrates right greater than the left with evidence of fluid volume overload versus pneumonia #2. Anemia with thrombocytopenia of unclear etiology, requiring transfusion with packed red blood cells and platelets, infectious etiology is being considered, cultures remain negative, there has been no fever, pro-calcitonin is negative #3. Hypothyroidism #4. Degenerative joint disease #5. Osteoporosis Plan: Continue current antibiotics, chest x-ray has been reviewed showing improvement in the appearance of interstitial prominence, with continue IV diuretics, no fever or chills, cultures remain negative today, pro-calcitonin was low, suggesting low probability of infection. ID service is following. Patient is scheduled for bone marrow biopsy today. I performed a history & physical examination of the patient and discussed their management with my nurse practitioner, Valencia Mcallister. I reviewed the nurse practitioner's note and agree with the documented findings and plan of care. Lung sounds are positive for bibasilar crackles. The findings and the impression was discussed with the patient. I attest to the documentation by the nurse practitioner. Time with Patient: Less than 30
[2018-10-23] MEDS ORDERED: PROPOFOL 10 MG/ML 20 ML VIAL IV ONE (12:34)
[2018-10-23] MEDS ORDERED: SODIUM CHLORIDE 0.9% 500 ML 500 ML IV ONE (12:41)
--- NOTE | 2018-10-23 12:56 | P.PCN ---
Date of Procedure: 10/23/18 Preoperative Diagnosis: Anemia, thrombo-cytopenia, with negative clinical workup Postoperative Diagnosis: Same Procedure(s) Performed: Bone marrow aspiration biopsy Anesthesia: MAC Surgeon: Dillon Woodard Apartment Maintenance Technician #1: Stated None Estimated Blood Loss (ml): 1 Pathology: other Condition: stable Disposition: floor Indications for Procedure: Anemia and thrombo cytopenia of new onset, with negative clinical workup Operative Findings: Adequate samples Description of Procedure: The procedure was explained in detail to the patient and her family on the floor. Informed consent was obtained on the floor. She presented to the outpatient endoscopy suite and was then placed in the left lateral decubitus position. The area over both posterior iliac crests was cleaned and prepped with chlorhexidine and sterile draping. IV sedation was then initiated. Local anesthesia was administered with lidocaine to the right posterior hilar crest. A Jamshidi needle was then inserted and bone marrow aspirate and biopsy obtained. On withdrawal of the needle hemostasis was easily achieved. Blood loss was minimal and recovery from sedation was satisfactory. The patient appeared to have tolerated the procedure well without any obvious immediate complications.
[2018-10-23 13:42] LABS: Reticulocyte % 2.6 % (0.5-2.0)
--- NOTE | 2018-10-23 15:48 | P.PN ---
Subjective Progress Note Date: 10/23/18 Principal diagnosis: This is an 83 year old female that was admitted for possible bilateral bronchopneumonia, severe thrombocytopenia and anemia and is being followed closely. Due to the complex multiple medical issues, multiple consultations are following. Patient is sitting up in bed in no acute distress stating that her breathing has slightly improved. Patient was given a dose of IV lasix today per pullmonary and is feeling better. Patient denies any chest pain, palpitations or fever today. Patient denies any nausea or vomiting and is tolerating diet today. Patient prognosis is guarded. 10/22/2018 Patient is sitting up in bed in no acute distress. Family members at the bedside. Patient's hemoglobin this morning was 6.7 is currently receiving 1 unit of packed red blood cells. Will continue to monitor. Hematology oncology is following. The plan is for a bone marrow biopsy tomorrow afternoon. Patient is still requiring 5 L of oxygen via nasal cannula as she normally doesn't require any oxygen at home. Will add IV Lasix 40 mg twice a day and monitor closely. Patient denies any chest pain, shortness of breath, or palpitations at this time. Patient is able to converse without becoming winded. Patient states that she is still coughing but is unable to expectorate any mucus or phlegm. Pulmonary and cardiology are following as well. Guarded prognosis. 10/23/2018 Patient is up to the bathroom with standby assistance and appears to be in no acute distress. Patient is currently on 4 L of oxygen via nasal cannula and tolerating well. Patient states that her breathing is better but still becomes winded with exertion. Patient is currently on IV Lasix twice daily and will continue at this time. Will continue to monitor closely. Today's chest x-ray shows some improvement and suggests interstitial pneumonitis or CHF. Pulmonary is following closely. Infectious disease is following as well. Patient will be continued on IV antibiotic therapy at this time. Patient is awaiting to go for a bone marrow biopsy early this afternoon. Patient is nothing by mouth at this time. Patient denies any chest pain or palpitations at this time. Patient is coughing with minimal phlegm production. No acute distress overnight. Guarded prognosis. Will await for biopsy report. Objective - Vital Signs Vital signs: Vital Signs Temp 98.3 F 10/23/18 12:15 Pulse 90 10/23/18 12:15 Resp 16 10/23/18 12:15 BP 142/60 10/23/18 12:15 Pulse Ox 94 L 10/23/18 08:00 Intake & Output 10/22/18 10/23/18 10/23/18 18:59 06:59 18:59 Intake Total 920 100 Output Total 800 Balance 120 100 Weight 69.8 kg Intake: IV 100 Oral 610 Blood Product 310 Rc As-1 Unit 310 [id number] Output: Urine 800 Other: Voiding Method Toilet Toilet Toilet Bedside Commode Bedside Commode Bedside Commode # Voids 2 1 - Exam Gen: This is a 83year old female sitting up in bed in no acute distress with family at the bedside. Vital signs are stable. Blood pressure is 131/61, pulse is 86, resp are 18, temp is 97.8 F, and oxygen saturation is 94 % on 4L via NC HEENT: Head is atraumatic, normocephalic. Pupils equal, round. Sclerae is anicteric. NECK: Supple. No JVD. No lymphadenopathy. No thyromegaly. LUNGS: Diminished breath sounds at the bases with a few scattered rhonchi and crackles noted. No intercostal retractions. HEART: S1, S2 are muffled No murmur. ABDOMEN: Soft. Bowel sounds are present. No masses. No tenderness. EXTREMITIES: No pedal edema. No calf tenderness. NEUROLOGICAL: Patient is awake, alert and oriented x3. Cranial nerves 2 through 12 are grossly intact. Gait is steady. - Labs CBC & Chem 7: 10/23/18 05:48 10/23/18 05:48 Labs: Abnormal Lab Results - Last 24 Hours (Table) 10/20/18 10/22/18 10/23/18 Range/Units 11:24 20:17 05:48 RBC 2.59 L 2.56 L (3.80-5.40) m/uL Hgb 8.5 L D 8.8 L (11.4-16.0) gm/dL Hct 26.4 L 26.3 L (34.0-46.0) % MCV 101.9 H 102.9 H (80.0-100.0) fL RDW 18.3 H 18.1 H (11.5-15.5) % Plt Count 13 L* 14 L* (150-450) k/uL Retic Count 2.6 H (0.5-2.0) % BUN (7-17) mg/dL Glucose (74-99) mg/dL Total Bilirubin (0.2-1.3) mg/dL AST (14-36) U/L ALT (9-52) U/L Total Protein (6.3-8.2) g/dL Albumin (3.5-5.0) g/dL Parvovirus B19 IgG Ab 5.08 H (<=0.90) INDEX 10/23/18 Range/Units 05:48 RBC (3.80-5.40) m/uL Hgb (11.4-16.0) gm/dL Hct (34.0-46.0) % MCV (80.0-100.0) fL RDW (11.5-15.5) % Plt Count (150-450) k/uL Retic Count (0.5-2.0) % BUN 19 H (7-17) mg/dL Glucose 104 H (74-99) mg/dL Total Bilirubin 1.9 H (0.2-1.3) mg/dL AST 52 H (14-36) U/L ALT 71 H (9-52) U/L Total Protein 5.9 L (6.3-8.2) g/dL Albumin 3.3 L (3.5-5.0) g/dL Parvovirus B19 IgG Ab (<=0.90) INDEX Microbiology - Last 24 Hours (Table) 10/22/18 16:14 Gram Stain - Preliminary Sputum Sputum Culture - Preliminary 10/18/18 15:02 Blood Culture - Preliminary Blood No Growth after 96 hours Assessment and Plan Assessment: Possible bilateral bronchopneumonia or interstitial pneumonia, right more than the left with possible bilateral pneumonia Severe thrombocytopenia, undetermined etiology. Rule out idiopathic thrombocytopenia purpura or viral-induced thrombocytopenia; platelets today are 14 Anemia, macrocytic anemia undetermined etiology, status post blood transfusions; hemoglobin today is 8.8 Increased random blood sugars increased total bilirubin, improving. Will continue to monitor. Hypokalemia, improved current potassium is 3.8 History of degenerative joint disease hypothyroidism History of corneal transplants History of cataracts Recommendations and discussion: Recommend continue current medications, management, and symptomatically treatment. We will continue to follow and monitor the patient closely. Hematology oncology is following. Patient is to have a bone marrow biopsy today Current potassium is 3.8. Will repeat labs in the a.m. Continue with current IV antibiotics of cefepime. Patient was placed on IV Lasix and will continue to monitor vital signs and labs closely. Pulmonary is following closely. We will continue to attempt to wean oxygen needs to determine if oxygen is needed at home upon discharge. Urine and blood cultures are negative thus far. Due to the multiple complex medical issues, prognosis is guarded. Further recommendations to follow.
[2018-10-23] MEDS: MULTIVITAMINS, THERA 1 EACH TAB PO SCH (18:29)
[2018-10-23] MEDS: LEVOFLOXACIN 750 MG TAB PO SCH (18:29)
--- NOTE | 2018-10-23 23:46 | P.PN ---
Subjective Progress Note Date: 10/23/18 The patient denies any new complaints. Specifically she has had no obvious bleeding, or new bruises. Continues to have generalized weakness and gets shortness of breath comparatively easily. No history of any chest pain, fever/chills/nausea or vomiting Objective - Vital Signs Vital signs: Vital Signs Temp 98.3 F 10/23/18 20:00 Pulse 64 10/23/18 20:00 Resp 18 10/23/18 20:00 BP 137/62 10/23/18 20:00 Pulse Ox 94 L 10/23/18 20:00 Intake & Output 10/23/18 10/23/18 10/24/18 06:59 18:59 06:59 Intake Total 100 240 Output Total 200 Balance 100 40 Weight 69.8 kg Intake: IV 100 Oral 240 Output: Urine 200 Other: Voiding Method Toilet Toilet Toilet Bedside Commode Bedside Commode Bedside Commode # Voids 2 1 2 - Constitutional General appearance: Present: no acute distress - EENT Eyes: Present: EOMI ENT: Present: hearing grossly normal, normal oropharynx - Respiratory Respiratory: bilateral: diminished - Cardiovascular Rhythm: regular Heart sounds: normal: S1, S2 - Gastrointestinal General gastrointestinal: Present: soft - Neurologic Neurologic: Present: CNII-XII intact - Musculoskeletal Musculoskeletal: Present: generalized weakness, strength equal bilaterally - Psychiatric Psychiatric: Present: A&O x's 3, appropriate affect - Labs CBC & Chem 7: 10/23/18 05:48 10/23/18 05:48 Labs: Abnormal Lab Results - Last 24 Hours (Table) 10/20/18 10/23/18 10/23/18 Range/Units 11:24 05:48 05:48 RBC 2.56 L (3.80-5.40) m/uL Hgb 8.8 L (11.4-16.0) gm/dL Hct 26.3 L (34.0-46.0) % MCV 102.9 H (80.0-100.0) fL RDW 18.1 H (11.5-15.5) % Plt Count 14 L* (150-450) k/uL Retic Count 2.6 H (0.5-2.0) % BUN 19 H (7-17) mg/dL Glucose 104 H (74-99) mg/dL Total Bilirubin 1.9 H (0.2-1.3) mg/dL AST 52 H (14-36) U/L ALT 71 H (9-52) U/L Total Protein 5.9 L (6.3-8.2) g/dL Albumin 3.3 L (3.5-5.0) g/dL Parvovirus B19 IgG Ab 5.08 H (<=0.90) INDEX Microbiology - Last 24 Hours (Table) 10/18/18 15:02 Blood Culture - Preliminary Blood No Growth after 120 hours 10/22/18 16:14 Gram Stain - Preliminary Sputum Sputum Culture - Preliminary Assessment and Plan (1) Bicytopenia Narrative/Plan: This persists to the same degree. The patient had an appropriate response to PRBC transfusion given 2 days ago. Platelets are unchanged. There is no evidence of obvious bleeding. The drop in her hemoglobin is more likely due to breakdown of transfuse blood. WBC remains normal. Cytopenia lab so far have been negative. As there has been no improvement in her blood counts, bone marrow aspiration biopsy will be performed today. The procedure was explained in detail. Continue to monitor with supportive transfusions as needed Current Visit: Yes Status: Acute Code(s): D75.89 - OTHER SPECIFIED DISEASES OF BLOOD AND BLOOD-FORMING ORGANS SNOMED Code(s): 44442087 (2) SIRS (systemic inflammatory response syndrome) Narrative/Plan: Hemodynamics are stable. Patient remains afebrile. Cultures are negative so far. Current Visit: Yes Status: Acute Code(s): R65.10 - SIRS OF NON-INFECTIOUS ORIGIN W/O ACUTE ORGAN DYSFUNCTION SNOMED Code(s): 567414711
--- NOTE | 2018-10-24 05:44 | PN ---
PROGRESS NOTE DATE OF SERVICE: 10/23/2018 REASON FOR FOLLOWUP: Pneumonia. INTERVAL HISTORY: The patient is currently afebrile. The patient seems to be breathing more comfortably. The patient's cough decreased in intensity with mostly dry in nature. No nausea, no vomiting. No abdominal pain and no diarrhea. PHYSICAL EXAMINATION: On examination, blood pressure is 133/68 with a pulse of 90, temperature 97.9. She is 95% 2 L nasal cannula. General description is an elderly female, lying in bed, in no distress. RESPIRATORY SYSTEM: Unlabored breathing, with decreased breath sounds at the bases, no wheeze. HEART: S1, S2. Regular rate and rhythm. ABDOMEN: Soft, no tenderness. LABS: Hemoglobin 8.8, white count 4.2, BUN of 19, creatinine 0.55. Blood and sputum have been negative so far. DIAGNOSTIC IMPRESSION AND PLAN: Patient admitted to the hospital with difficulty breathing, which is likely multifactorial. This patient did have extensive bruising with evidence of thrombocytopenia. The patient's fever responds to cefepime and Levaquin to continue for now. Awaiting a bone marrow biopsy today and continue supportive care. Family at the bedside. Their questions were answered. MMODL / IJN: [id number] /
[2018-10-24] MEDS: LEVOTHYROXINE 88 MCG TAB PO SCH (07:15)
[2018-10-24] MEDS: PANTOPRAZOLE 40 MG TABLET PO SCH (07:43)
[2018-10-24] MEDS: FUROSEMIDE 10 MG/ML 4 ML VIAL IV SCH (07:44)
[2018-10-24] MEDS: LEVOFLOXACIN 750 MG TAB PO SCH (07:44)
[2018-10-24] MEDS: MULTIVITAMINS, THERA 1 EACH TAB PO SCH ×2 (07:44→07:45)
[2018-10-24] MEDS: CEFEPIME 2 GM in SODIUM CHLORIDE 0.9% 100 ML IVPB SCH (08:33)
--- NOTE | 2018-10-24 09:03 | XR ---
EXAMINATION TYPE: XR chest 2V DATE OF EXAM: 10/24/2018 COMPARISON: 10/23/2018 TECHNIQUE: PA and lateral views submitted. HISTORY: Shortness of breath FINDINGS: Predominant interstitial pattern persists. Mild prominence of the ascending aorta with atheroscleroti c changes. Calcified granuloma right lung base. Subsegmental changes at the lung bases again noted. B iapical pleural thickening. Hypertrophic and degenerative change of the spine. IMPRESSION: 1. Predominantly interstitial pattern with more patchy infiltrate in the right upper lobe. Differenti al diagnosis includes interstitial pneumonitis superimposed infiltrate versus mild CHF. Underlying CO PD and chronic interstitial lung disease suspected.
[2018-10-24] MEDS: prednisoLONE ACETATE 1% OPHTH DROPS 5 ML BTL BOTH EYES SCH (09:16)
[2018-10-24] MEDS: IPRATROPIUM-ALBUTEROL 3 ML NEB INHALATION SCH ×4 (09:40→19:43)
[2018-10-24 09:41] LABS: African American GFR (CKD) >90 (>60 ml/min/1.73 sqM); Anion Gap 11 mmol/L; Blood Urea Nitrogen 24 mg/dL (7-17); Calcium 9.3 mg/dL (8.4-10.2); Carbon Dioxide 27 mmol/L (22-30); Chloride 98 mmol/L (98-107); Glucose 91 mg/dL (74-99); Potassium 3.5 mmol/L (3.5-5.1); Sodium 136 mmol/L (137-145)
[2018-10-24 09:47] LABS: Anisocytosis Slight; Basophils % (A) 0 %; Eosinophils # (A) 0.1 k/uL (0-0.7); Eosinophils % (A) 3 %; HCT 29.3 % (34.0-46.0); HGB 9.6 gm/dL (11.4-16.0); Lymphocytes # (A) 1.4 k/uL (1.0-4.8); Lymphocytes % (A) 35 %; MCH 33.8 pg (25.0-35.0); MCHC 32.7 g/dL (31.0-37.0); MCV 103.4 fL (80.0-100.0); Macrocytosis Moderate; Mean Platelet Volume 8.4; Monocytes # (A) 0.2 k/uL (0-1.0); Monocytes % (A) 4 %; Neutrophils # (A) 2.2 k/uL (1.3-7.7); Neutrophils % (A) 56 %; RBC 2.84 m/uL (3.80-5.40); RDW 17.6 % (11.5-15.5); WBC 3.9 k/uL (3.8-10.6)
[2018-10-24 09:49] LABS: Platelet Count 15 k/uL (150-450)
[2018-10-24] MEDS ORDERED: POTASSIUM CHLORIDE ER 20 MEQ TAB.ER PO STA (10:57)
--- NOTE | 2018-10-24 11:17 | P.PN ---
Subjective Progress Note Date: 10/24/18 Principal diagnosis: Acute hypoxic respiratory failure secondary to profound anemia, fluid volume overload. The patient is seen today 10/24/2018 in follow-up on the regular medical floor. She is awake and alert in no acute distress. She is maintaining good O2 saturations in the mid to upper 90s on 3 L/m per nasal cannula. She's been afebrile. Hemodynamically stable. She did undergo bone marrow biopsy yesterday, results are pending. She is status post 2 units of packed red blood cells one unit of platelets this admission. Blood culture reveals no growth. Urine and sputum cultures reveal no growth. White count 3.9. Hemoglobin 9.6. Platelet count 15,000. Sodium 136. Creatinine 0.66 Objective - Vital Signs Vital signs: Vital Signs Temp 97.5 F L 10/24/18 05:00 Pulse 89 10/24/18 09:55 Resp 18 10/24/18 05:00 BP 107/57 10/24/18 05:00 Pulse Ox 98 10/24/18 09:40 Intake & Output 10/23/18 10/24/18 10/24/18 18:59 06:59 18:59 Intake Total 100 240 Output Total 200 Balance 100 40 Weight 64.5 kg Intake: IV 100 Oral 240 Output: Urine 200 Other: Voiding Method Toilet Toilet Toilet Bedside Commode Bedside Commode # Voids 1 2 2 - Exam GENERAL EXAM: Alert, pleasant 83-year-old female patient, comfortable in no apparent distress. On 3 L nasal cannula. HEAD: Normocephalic. EYES: Normal reaction of pupils, equal size. NOSE: Clear with pink turbinates. THROAT: No erythema or exudates. NECK: No masses, no JVD. CHEST: No chest wall deformity. LUNGS: Equal air entry with crackles in the bilateral posterior bases. CVS: S1 and S2 normal with no audible murmur, regular rhythm. ABDOMEN: No hepatosplenomegaly, normal bowel sounds, no guarding or rigidity. SPINE: No scoliosis or deformity SKIN: No rashes CENTRAL NERVOUS SYSTEM: No focal deficits, tone is normal in all 4 extremities. EXTREMITIES: There is no peripheral edema. No clubbing, no cyanosis. Peripheral pulses are intact. - Labs CBC & Chem 7: 10/24/18 09:09 10/24/18 09:09 Labs: Abnormal Lab Results - Last 24 Hours (Table) 10/20/18 10/23/18 10/24/18 Range/Units 11:24 05:48 09:09 RBC 2.56 L 2.84 L (3.80-5.40) m/uL Hgb 8.8 L 9.6 L (11.4-16.0) gm/dL Hct 26.3 L 29.3 L (34.0-46.0) % MCV 102.9 H 103.4 H (80.0-100.0) fL RDW 18.1 H 17.6 H (11.5-15.5) % Plt Count 14 L* 15 L* (150-450) k/uL Retic Count 2.6 H (0.5-2.0) % Sodium (137-145) mmol/L BUN (7-17) mg/dL Parvovirus B19 IgG Ab 5.08 H (<=0.90) INDEX 10/24/18 Range/Units 09:09 RBC (3.80-5.40) m/uL Hgb (11.4-16.0) gm/dL Hct (34.0-46.0) % MCV (80.0-100.0) fL RDW (11.5-15.5) % Plt Count (150-450) k/uL Retic Count (0.5-2.0) % Sodium 136 L (137-145) mmol/L BUN 24 H (7-17) mg/dL Parvovirus B19 IgG Ab (<=0.90) INDEX Microbiology - Last 24 Hours (Table) 10/18/18 15:02 Blood Culture - Preliminary Blood No Growth after 120 hours Assessment and Plan Assessment: Impression: #1 Acute hypoxic respiratory failure secondary to significant anemia and thrombocytopenia, diffuse bilateral infiltrates right greater than left with evidence of fluid volume overload versus pneumonia. #2 Anemia with thrombocytopenia of unclear etiology. Status post 2 units packed red blood cells, 1 unit of platelets. Current hemoglobin 9.6. Platelet count 15,000. Bone marrow biopsy 10/23/2018, results pending. #3 Hypothyroidism. #4 Degenerative joint disease. #5 Osteoporosis. The patient was seen and evaluated by Dr. Beatty. Chest x-ray was reviewed. There is some improvement. She remains on diuretics. She is improved clinically, down to 3 L/m per nasal cannula. She is stable from the pulmonary standpoint. We'll see her on an as-needed basis. I, the cosigning physician, performed a history & physical examination of the patient. Lungs sounds with basilar crackles. Maintaining good O2 saturations in the 90s on 3 L/m per nasal cannula I discussed the assessment and plan of care with my nurse practitioner, Layla Bradford. I attest to the above note as dictated by her.
[2018-10-24] MEDS ORDERED: FUROSEMIDE 40 MG TAB PO SCH (12:15)
--- NOTE | 2018-10-24 13:33 | P.PN ---
Subjective Progress Note Date: 10/24/18 Principal diagnosis: Cytopenias Status Post BM biopsy 10.23.18 Objective - Vital Signs Vital signs: Vital Signs Temp 97.7 F 10/24/18 11:54 Pulse 90 10/24/18 12:42 Resp 17 10/24/18 11:54 BP 116/66 10/24/18 11:54 Pulse Ox 97 10/24/18 11:54 Intake & Output 10/23/18 10/24/18 10/24/18 18:59 06:59 18:59 Intake Total 100 240 Output Total 200 Balance 100 40 Weight 64.5 kg Intake: IV 100 Oral 240 Output: Urine 200 Other: Voiding Method Toilet Toilet Toilet Bedside Commode Bedside Commode # Voids 1 2 4 # Bowel Movements 2 - Exam - Constitutional General appearance: average body habitus, cooperative, no acute distress - EENT Eyes: anicteric sclerae, EOMI, normal appearance ENT: hearing grossly normal, normal oropharynx - Neck Neck: no lymphadenopathy - Respiratory Respiratory: right: diminished (RML), bilateral: CTA - Cardiovascular Rhythm: regular Heart sounds: normal: S1, S2 Abnormal Heart Sounds: no systolic murmur, no diastolic murmur, no rub, no S3 Gallop, no S4 Gallop, no click, no other leg Peripheral Edema: bilateral: None - Gastrointestinal General gastrointestinal: no absent bowel sounds, no decreased bowel sounds, no distended, no hepatomegaly, no hyperactive bowel sounds, normal bowel sounds, no organomegaly, no rigid, no scaphoid, soft, no splenomegaly, no tenderness, no umbilical hernia, no ventral hernia - Integumentary Scattered bruises on the extremities, bilateral shins have some scattered petechiae, no hematomas Integumentary: normal turgor - Neurologic Neurologic: CNII-XII intact - Musculoskeletal Musculoskeletal: strength equal bilaterally - Psychiatric Psychiatric: A&O x's 3, appropriate affect, intact judgment & insight - Labs CBC & Chem 7: 10/24/18 09:09 10/24/18 09:09 Labs: Abnormal Lab Results - Last 24 Hours (Table) 10/23/18 10/24/18 10/24/18 Range/Units 05:48 09:09 09:09 RBC 2.56 L 2.84 L (3.80-5.40) m/uL Hgb 8.8 L 9.6 L (11.4-16.0) gm/dL Hct 26.3 L 29.3 L (34.0-46.0) % MCV 102.9 H 103.4 H (80.0-100.0) fL RDW 18.1 H 17.6 H (11.5-15.5) % Plt Count 14 L* 15 L* (150-450) k/uL Retic Count 2.6 H (0.5-2.0) % Sodium 136 L (137-145) mmol/L BUN 24 H (7-17) mg/dL Microbiology - Last 24 Hours (Table) 10/22/18 16:14 Gram Stain - Final Sputum Sputum Culture - Final 10/18/18 15:02 Blood Culture - Preliminary Blood No Growth after 120 hours Assessment and Plan Plan: Assessment and Plan Sudden onset Bicytopenia: - Likely secondary to underlying infectious process, possible component ITP - Less likely due to Hemolysis or Bone marrow disorder - No Schistocytes Anemia - Macrocytic - Was recently started on Iron PO prior to hospitalization. Thrombocytopenia: - Monitor for s/s bleeding - Transfuse less than 10 - No AC therapy, ASA, or NSAIDS Plan: - Awaiting results of B< Biopsy - Will follow-up in office after discharge ABBIE Jaramillo
--- NOTE | 2018-10-24 14:05 | PN ---
PROGRESS NOTE DATE OF SERVICE: 10/24/2018 REASON FOR FOLLOWUP: Pneumonia. INTERVAL HISTORY: The patient is currently afebrile. The patient has been breathing more comfortably. The patient denies having any chest pain. Breathing has improved, very minimal cough which has been dry in nature. No nausea, no vomiting. No abdominal pain, no diarrhea. PHYSICAL EXAMINATION: Blood pressure 116/66, pulse of 89, temperature is 97.7, she is 97% on 2 L nasal cannula. General description is an elderly female, up in the bed in no distress. RESPIRATORY SYSTEM: Unlabored breathing with decreased breath sounds at the bases, no wheeze. HEART: S1, S2. Regular rate and rhythm. ABDOMEN: Soft, no tenderness. LABS: Hemoglobin 9.1, white count of 3.9, BUN of 24, creatinine 0.66. Blood and sputum cultures have been negative. DIAGNOSTIC IMPRESSION AND PLAN: The patient admitted to the hospital with difficulty breathing, easy bruising which is multifactorial with possible pneumonia. So far, culture has been negative. She will have a short course of oral Levaquin on discharge with close outpatient followup. Cefazolin discontinued. MMODL / IJN: [id number] /
--- NOTE | 2018-10-24 15:08 | P.PN ---
Subjective Progress Note Date: 10/24/18 Principal diagnosis: This is an 83 year old female that was admitted for possible bilateral bronchopneumonia, severe thrombocytopenia and anemia and is being followed closely. Due to the complex multiple medical issues, multiple consultations are following. Patient is sitting up in bed in no acute distress stating that her breathing has slightly improved. Patient was given a dose of IV lasix today per pullmonary and is feeling better. Patient denies any chest pain, palpitations or fever today. Patient denies any nausea or vomiting and is tolerating diet today. Patient prognosis is guarded. 10/22/2018 Patient is sitting up in bed in no acute distress. Family members at the bedside. Patient's hemoglobin this morning was 6.7 is currently receiving 1 unit of packed red blood cells. Will continue to monitor. Hematology oncology is following. The plan is for a bone marrow biopsy tomorrow afternoon. Patient is still requiring 5 L of oxygen via nasal cannula as she normally doesn't require any oxygen at home. Will add IV Lasix 40 mg twice a day and monitor closely. Patient denies any chest pain, shortness of breath, or palpitations at this time. Patient is able to converse without becoming winded. Patient states that she is still coughing but is unable to expectorate any mucus or phlegm. Pulmonary and cardiology are following as well. Guarded prognosis. 10/23/2018 Patient is up to the bathroom with standby assistance and appears to be in no acute distress. Patient is currently on 4 L of oxygen via nasal cannula and tolerating well. Patient states that her breathing is better but still becomes winded with exertion. Patient is currently on IV Lasix twice daily and will continue at this time. Will continue to monitor closely. Today's chest x-ray shows some improvement and suggests interstitial pneumonitis or CHF. Pulmonary is following closely. Infectious disease is following as well. Patient will be continued on IV antibiotic therapy at this time. Patient is awaiting to go for a bone marrow biopsy early this afternoon. Patient is nothing by mouth at this time. Patient denies any chest pain or palpitations at this time. Patient is coughing with minimal phlegm production. No acute distress overnight. Guarded prognosis. Will await for biopsy report. 10/24/2018 Patient is sitting up at the side of the bed in no acute distress. Daughter from out of state is visiting her. Patient states that her shortness of breath has improved and she is requiring less oxygen at this time. Patient was on 3 L via nasal cannula and oxygenating well. staff writer has been attempting to wean patient off of oxygen. Patient states that at 2 L she was doing okay but feeling slightly short of breath. Patient was found by nursing staff in the room without her oxygen on and was 92-93% while on room air at rest. Patient is currently on 1 L via nasal cannula with a saturation rate of 96%. Will continue to monitor. Patient is being followed by infectious disease. Patient is to continue on oral Levaquin 750 mg daily for 1 week. Patient was transitioned to oral Lasix today and tolerating well. Currently awaiting authorization for [facility]. Patient denies any chest pain or palpitations at this time. Patient is afebrile. Patient denies any nausea or vomiting and has been tolerating diet. Guarded prognosis. Objective - Vital Signs Vital signs: Vital Signs Temp 97.7 F 10/24/18 11:54 Pulse 90 10/24/18 12:42 Resp 17 10/24/18 11:54 BP 116/66 10/24/18 11:54 Pulse Ox 97 10/24/18 11:54 Intake & Output 10/23/18 10/24/18 10/24/18 18:59 06:59 18:59 Intake Total 100 240 Output Total 200 Balance 100 40 Weight 64.5 kg Intake: IV 100 Oral 240 Output: Urine 200 Other: Voiding Method Toilet Toilet Toilet Bedside Commode Bedside Commode # Voids 1 2 4 # Bowel Movements 2 - Exam Gen: This is a 83year old female sitting up in bed in no acute distress with family at the bedside. Vital signs are stable. Blood pressure is 116/66, pulse is 89, resp are 17, temp is 97.7 F, and oxygen saturation is 96 % on 1L via NC HEENT: Head is atraumatic, normocephalic. Pupils equal, round. Sclerae is anicteric. NECK: Supple. No JVD. No lymphadenopathy. No thyromegaly. LUNGS: Diminished breath sounds at the bases with mild scattered crackles noted. No intercostal retractions. HEART: S1, S2 are muffled No murmur. ABDOMEN: Soft. Bowel sounds are present. No masses. No tenderness. EXTREMITIES: No pedal edema. No calf tenderness. NEUROLOGICAL: Patient is awake, alert and oriented x3. Cranial nerves 2 through 12 are grossly intact. Gait is steady. - Labs CBC & Chem 7: 10/24/18 09:09 10/24/18 09:09 Labs: Abnormal Lab Results - Last 24 Hours (Table) 10/24/18 10/24/18 Range/Units 09:09 09:09 RBC 2.84 L (3.80-5.40) m/uL Hgb 9.6 L (11.4-16.0) gm/dL Hct 29.3 L (34.0-46.0) % MCV 103.4 H (80.0-100.0) fL RDW 17.6 H (11.5-15.5) % Plt Count 15 L* (150-450) k/uL Sodium 136 L (137-145) mmol/L BUN 24 H (7-17) mg/dL Microbiology - Last 24 Hours (Table) 10/22/18 16:14 Gram Stain - Final Sputum Sputum Culture - Final 10/18/18 15:02 Blood Culture - Preliminary Blood No Growth after 120 hours Assessment and Plan Assessment: Possible bilateral bronchopneumonia or interstitial pneumonia, right more than the left with possible bilateral pneumonia. Per infectious disease recommendations patient is to continue on oral Levaquin 750 mg for 7 days. Severe thrombocytopenia, undetermined etiology. Rule out idiopathic thrombocytopenia purpura or viral-induced thrombocytopenia; platelets today are 15 Anemia, macrocytic anemia undetermined etiology, status post blood transfusions; hemoglobin today is 9.6 Increased random blood sugars increased total bilirubin, improving. Will continue to monitor. Hypokalemia, improved current potassium is 3.5 and replaced History of degenerative joint disease hypothyroidism History of corneal transplants History of cataracts Recommendations and discussion: Recommend continue current medications, management, and symptomatically treatment. We will continue to follow and monitor the patient closely. Hematology oncology is following. Bone marrow biopsy is pending. Will repeat labs in the a.m. Patient was transitioned to oral Lasix and will continue to monitor vital signs and labs closely. Pulmonary is following closely. We will continue to wean oxygen needs to determine if oxygen is needed at home upon discharge. Patient is currently only on 1 L of oxygen via nasal cannula and tolerating well. Urine and blood cultures are negative. Due to the multiple complex medical issues, prognosis is guarded. Further recommendations to fol low. Awaiting authorization for [facility] rehab facility. Possible discharge in 24 hours.
[2018-10-24 15:33] VITALS: BMI 22.9
[2018-10-24] MEDS: FUROSEMIDE 40 MG TAB PO SCH (16:01)
[2018-10-25] MEDS: LEVOTHYROXINE 88 MCG TAB PO SCH (06:24)
[2018-10-25] MEDS: FUROSEMIDE 40 MG TAB PO SCH (07:23)
[2018-10-25] MEDS: LEVOFLOXACIN 750 MG TAB PO SCH (07:23)
[2018-10-25] MEDS: POTASSIUM CHLORIDE ER 10 MEQ TAB.ER.PRT PO SCH (07:24)
[2018-10-25] MEDS: PANTOPRAZOLE 40 MG TABLET PO SCH (07:24)
[2018-10-25] MEDS: prednisoLONE ACETATE 1% OPHTH DROPS 5 ML BTL BOTH EYES SCH (07:24)
[2018-10-25] MEDS: IPRATROPIUM-ALBUTEROL 3 ML NEB INHALATION SCH ×4 (09:11→20:51)
--- NOTE | 2018-10-25 11:31 | P.PN ---
Subjective Progress Note Date: 10/25/18 The patient feels better overall. No fevers or chills. She is not requiring any oxygen. Appetite is improved. No new bruising, or obvious bleeding noted Objective - Vital Signs Vital signs: Vital Signs Temp 97.9 F 10/25/18 04:52 Pulse 89 10/25/18 09:25 Resp 18 10/25/18 08:00 BP 111/69 10/25/18 04:52 Pulse Ox 93 L 10/25/18 09:11 Intake & Output 10/24/18 10/25/18 10/25/18 18:59 06:59 18:59 Weight 64.5 kg 69.5 kg Other: Voiding Method Toilet Toilet Toilet Diaper Diaper # Voids 4 2 # Bowel Movements 2 - Constitutional General appearance: Present: no acute distress - EENT Eyes: Present: EOMI ENT: Present: hearing grossly normal, normal oropharynx - Respiratory Respiratory: bilateral: CTA - Cardiovascular Rhythm: regular Heart sounds: normal: S1, S2 - Gastrointestinal General gastrointestinal: Present: normal bowel sounds, soft - Integumentary Integumentary Comment(s): Scattered bruises, in various stages of resolution, on upper extremity, back and lower extremity is. No new significant bruising seen - Neurologic Neurologic: Present: CNII-XII intact - Musculoskeletal Musculoskeletal: Present: generalized weakness, strength equal bilaterally - Labs CBC & Chem 7: 10/24/18 09:09 10/24/18 09:09 Labs: Microbiology - Last 24 Hours (Table) 10/18/18 15:02 Blood Culture - Final Blood No Growth after 144 hours 10/22/18 16:14 Gram Stain - Final Sputum Sputum Culture - Final Assessment and Plan (1) Bicytopenia Narrative/Plan: This persists, though CBC yesterday showed an increase in hemoglobin to 9.6 from 8.8. Bone marrow results are pending. Cytopenia workup otherwise negative. - If the patient experiences spontaneous improvement in counts, then the cl inical impression of marrow suppression due to an infection, likely viral, would be supported . Otherwise await results of bone marrow to determine etiology. They should be available next week. Check CBC today. If counts are in a safe range, the patient could potentially be discharged if felt to be okay for the same by the admitting service. In that case I would recommend checking CBC on 10/26 or 10/27, with supportive transfusion as needed Current Visit: Yes Status: Acute Code(s): D75.89 - OTHER SPECIFIED DISEASES OF BLOOD AND BLOOD-FORMING ORGANS SNOMED Code(s): 74922789 (2) SIRS (systemic inflammatory response syndrome) Narrative/Plan: Symptoms resolved. Cultures were negative. Defer to the admitting service as to need for antibiotics Current Visit: Yes Status: Acute Code(s): R65.10 - SIRS OF NON-INFECTIOUS ORIGIN W/O ACUTE ORGAN DYSFUNCTION SNOMED Code(s): 893824374
[2018-10-25 12:02] LABS: Anisocytosis Slight; Basophils % (A) 0 %; Eosinophils # (A) 0.1 k/uL (0-0.7); Eosinophils % (A) 2 %; HCT 30.1 % (34.0-46.0); HGB 10.2 gm/dL (11.4-16.0); Lymphocytes # (A) 1.4 k/uL (1.0-4.8); Lymphocytes % (A) 29 %; MCH 34.5 pg (25.0-35.0); MCHC 33.8 g/dL (31.0-37.0); MCV 102.1 fL (80.0-100.0); Macrocytosis Moderate; Mean Platelet Volume 9.4; Monocytes # (A) 0.2 k/uL (0-1.0); Monocytes % (A) 4 %; Neutrophils % (A) 63 %; RBC 2.95 m/uL (3.80-5.40); RDW 18.9 % (11.5-15.5); WBC 4.7 k/uL (3.8-10.6)
[2018-10-25 12:11] LABS: Platelet Count 14 k/uL (150-450)
--- NOTE | 2018-10-25 21:27 | PN ---
PROGRESS NOTE DATE OF SERVICE: 10/25/2018 REASON FOR FOLLOWUP: Possible pneumonia. INTERVAL HISTORY: The patient is currently afebrile. Apparently the patient did have some problem with hypoxemia that has put her discharge on hold. Denies having any chest pain. Very minimal cough. She has occasional sputum. No nausea, no vomiting. No abdominal pain and no diarrhea. PHYSICAL EXAMINATION: Blood pressure is 117/52 with a pulse of 97, temperature 98, she is 98% on 2 L nasal cannula. General description is an elderly female lying in bed in no distress. Respiratory system: Unlabored breathing clear to auscultation anteriorly. Heart S1, S2. Regular rate and rhythm. Abdomen soft, no tenderness. LABS: Hemoglobin is 10.1, white count 4.7, BUN of 24, creatinine 0.66. DIAGNOSTIC IMPRESSION AND PLAN: Patient admitted to the hospital with difficulty breathing with bilateral ( ) which is likely multifactorial, possible component of pneumonia. The patient's fever has resolved. Culture has been negative so far. Currently on Levaquin ( ) few days to finish a course of therapy. Continue supportive care. MMODL / IJN: [id number] /
--- NOTE | 2018-10-25 22:27 | PN ---
PROGRESS NOTE DATE OF SERVICE: 10/25/2018. HISTORY: This 83-year-old woman who was admitted with bilateral bronchopneumonia as well as interstitial pneumonia also had significant thrombocytopenia, possibly ITP or viral- induced thrombocytopenia. The platelets are improving at this time. Patient also had significant gait dysfunction. PT/OT evaluated the patient for possible ECF rehab. No chest pain, no palpitation. EXAM: Alert and oriented x3. Pulse 97, blood pressure 117/62, respirations 16, temperature 98 degrees, pulse ox 98% on 2 L. HEENT: Conjunctivae normal. NECK: No JVD. CARDIOVASCULAR: S1 and S2 muffled. LUNGS: Breath sounds diminished at the bases. Few scattered rhonchi and crackles. ABDOMEN: Soft, nontender. Legs nontender. No edema. No swelling. LABS: WBC 4.2, hemoglobin 10.8, platelets are 14. Sodium 136. ASSESSMENT: 1. Bilateral bronchopneumonia interstitial pneumonia, right more than the left. 2. Severe thrombocytopenia of undetermined etiology. Possible ITP or viral induced thrombocytopenia. 3. Anemia microcytic, again status post blood transfusion. 4. Increased random blood sugar. 5. Increased total bilirubin. 6. Hypokalemia. 7. History of DJD. 8. Hypothyroidism. 9. History of corneal transplant. 10.History of cataracts. 11.Gait dysfunction. RECOMMENDATIONS: Recommend to continue current management and repeat labs. Otherwise, at this time, I would also recommend PT/OT evaluation and possible ECF rehab. Guarded prognosis. Further recommendations to follow. See orders for details. MMODL / IJN: [id number] /
[2018-10-26] MEDS: LEVOTHYROXINE 88 MCG TAB PO SCH (06:01)
[2018-10-26 07:20] LABS: Anisocytosis Slight; Basophils % (A) 0 %; Eosinophils # (A) 0.1 k/uL (0-0.7); Eosinophils % (A) 2 %; HCT 26.3 % (34.0-46.0); HGB 9.2 gm/dL (11.4-16.0); Lymphocytes # (A) 1.2 k/uL (1.0-4.8); Lymphocytes % (A) 35 %; MCH 35.4 pg (25.0-35.0); MCV 101.1 fL (80.0-100.0); Macrocytosis Moderate; Mean Platelet Volume 8.6; Monocytes # (A) 0.2 k/uL (0-1.0); Monocytes % (A) 5 %; Neutrophils % (A) 56 %; RDW 18.6 % (11.5-15.5); WBC 3.5 k/uL (3.8-10.6)
[2018-10-26 07:32] LABS: Calcium 9.5 mg/dL (8.4-10.2); Potassium 3.8 mmol/L (3.5-5.1)
[2018-10-26 07:37] LABS: Platelet Count 12 k/uL (150-450)
[2018-10-26] MEDS: MULTIVITAMINS, THERA 1 EACH TAB PO SCH (07:51)
[2018-10-26] MEDS: FUROSEMIDE 40 MG TAB PO SCH (07:51)
[2018-10-26] MEDS: POTASSIUM CHLORIDE ER 10 MEQ TAB.ER.PRT PO SCH (07:51)
[2018-10-26] MEDS: LEVOFLOXACIN 750 MG TAB PO SCH (07:51)
[2018-10-26] MEDS: PANTOPRAZOLE 40 MG TABLET PO SCH (07:52)
[2018-10-26] MEDS: prednisoLONE ACETATE 1% OPHTH DROPS 5 ML BTL BOTH EYES SCH (07:52)
[2018-10-26] MEDS: IPRATROPIUM-ALBUTEROL 3 ML NEB INHALATION SCH ×4 (08:01→20:33)
--- NOTE | 2018-10-26 15:26 | XR ---
EXAMINATION TYPE: XR chest 1V portable DATE OF EXAM: 10/26/2018 Comparison: 10/24/2018 Clinical History: 83-year-old female CHF Findings: Heart upper limits of normal in size. Atherosclerotic arch calcifications. Diffuse interstitial promi nence without consolidation or pleural effusion. Impression: Borderline heart size. Interstitial prominence could reflect bronchitis, chronic asthma, or mild pulm onary vascular congestion. Clinically correlate. No dominga pulmonary edema.
--- NOTE | 2018-10-26 21:08 | PN ---
PROGRESS NOTE DATE OF SERVICE: 10/26/2018. This 83-year-old woman was admitted with thrombocytopenia, possible bilateral pneumonia, is being closely monitored at this time. The patient is complaining of shortness of breath. The patient using oxygen at this time. The most recent chest x- ray done on October 24 which I reviewed personally showed some interstitial pattern which is much improved from previously. The patient is also receiving Lasix for fluid overload also. Patient closely monitored. As for the laboratory findings of concern, the high white count is 3.2, hemoglobin 9.2, platelets 12, still low but rather stable. No chest pain. No palpitations. No fever. Yesterday the platelets were 14. The pathology reports are pending at this time. PAST MEDICAL HISTORY: Reviewed. REVIEW OF SYSTEMS: Cardiovascular: No angina. Respiratory: As mentioned earlier. GI: As mentioned earlier. Nervous system: As mentioned earlier. CURRENT MEDICATIONS: 1. Tylenol 500 mg q.6h p.r.n. 2. DuoNeb q.i.d. and p.r.n. 3. Xanax 0.5 t.i.d. 4. Lasix 40 mg b.i.d. 5. Levaquin 70 mg. 6. Synthroid 18 mcg. 7. Replacement protocol. 8. Multivitamins 1 p.o. daily. 9. Protonix. 10.K-Dur 10 mEq. PHYSICAL EXAM: Patient alert, oriented x2. Pulse 99, blood pressure 130/70, respiration 17, temperature 97.8, pulse ox 94% on room air. HEENT: Conjunctivae normal. Oral mucosa moist. NECK: No jugular venous distention. No lymph node enlargement. CARDIOVASCULAR: S1, S2. RESPIRATORY: Diminished breath sounds at the bases. A few scattered rhonchi and crackles. Expiratory wheezing also present. ABDOMEN: Soft, nontender. LEGS: No swelling. NERVOUS SYSTEM: Diffusely weak. LABS: WBC 3.2, hemoglobin 9.2, platelets 12. Sodium 134. ASSESSMENT: 1. Bilateral bronchopneumonia with interstitial pneumonia, right more than the left, possibly viral. 2. Severe thrombocytopenia of undetermined etiology. Possible ITP or viral induced thrombocytopenia. 3. Anemia, normocytic anemia, microcytic, status post multiple transfusions. 4. Increased random blood sugar. 5. Increased total bilirubin. 6. Hypokalemia. 7. History of degenerative joint disease. 8. History of hypothyroidism. 9. History of corneal transplant. 10.History of cataracts. 11.History of gait dysfunction. RECOMMENDATIONS AND DISCUSSION: Recommend to continue current management and symptomatic treatment. Otherwise, at this time, I would also recommend repeat chest x-ray to rule out the possibility of fluid overload and/or pneumonic exacerbation. Otherwise, I would recommend to continue the antibiotics, continue the small dose of diuretics. Monitor electrolytes closely. PT/OT evaluation, possible ECF rehab. Guarded prognosis. Further recommendations to follow. Discussed with family at length. MMODL / IJN: [id number] /
--- NOTE | 2018-10-26 23:26 | PN ---
PROGRESS NOTE DATE OF SERVICE: 10/26/2018 REASON FOR FOLLOW UP: Pneumonia. INTERVAL HISTORY: The patient is currently afebrile. The patient has been breathing slightly comfortably. He did have a cough. He is mostly dry in nature. No chest pain. No nausea, no vomiting. No abdominal pain, no diarrhea. PHYSICAL EXAMINATION: Blood pressure 134/74 with a pulse of 99, temperature 97.8, she is 91% on room air. General description is an elderly female lying in bed in no distress. Respiratory system: Unlabored breathing, clear to auscultation anteriorly. Heart S1, S2. Regular rate and rhythm. Abdomen soft, no tenderness. Extremities, no edema of the feet. LABS: The patient did have a chest x-ray which shows interstitial prominence, mild pulmonary vascular congestion. Hemoglobin 9.8, white count 3.5. DIAGNOSTIC IMPRESSION AND PLAN: Patient admitted to hospital with difficulty breathing. Did have a fever which is likely multifactorial, possible component of pneumonia. The patient is currently covered with Levaquin. Continue to finish a seven-day course of therapy and continue supportive care. MMODL / IJN: [id number] /
[2018-10-27] MEDS: LEVOTHYROXINE 88 MCG TAB PO SCH (05:45)
[2018-10-27 07:09] LABS: Anisocytosis Slight; Basophils % (A) 0 %; Eosinophils # (A) 0.1 k/uL (0-0.7); Eosinophils % (A) 2 %; HCT 28.7 % (34.0-46.0); HGB 9.7 gm/dL (11.4-16.0); Lymphocytes # (A) 1.4 k/uL (1.0-4.8); Lymphocytes % (A) 37 %; MCH 34.6 pg (25.0-35.0); MCHC 33.9 g/dL (31.0-37.0); MCV 102.2 fL (80.0-100.0); Macrocytosis Moderate; Mean Platelet Volume 8.7; Monocytes # (A) 0.2 k/uL (0-1.0); Monocytes % (A) 5 %; Neutrophils % (A) 54 %; RDW 18.5 % (11.5-15.5); WBC 3.8 k/uL (3.8-10.6)
[2018-10-27 07:15] LABS: Platelet Count 13 k/uL (150-450)
[2018-10-27 07:20] LABS: African American GFR (CKD) >90 (>60 ml/min/1.73 sqM); Anion Gap 9 mmol/L; Blood Urea Nitrogen 25 mg/dL (7-17); Calcium 9.5 mg/dL (8.4-10.2); Carbon Dioxide 31 mmol/L (22-30); Chloride 94 mmol/L (98-107); Glucose 101 mg/dL (74-99); Potassium 3.7 mmol/L (3.5-5.1); Sodium 134 mmol/L (137-145)
[2018-10-27] MEDS: LEVOFLOXACIN 750 MG TAB PO SCH (07:36)
[2018-10-27] MEDS: POTASSIUM CHLORIDE ER 10 MEQ TAB.ER.PRT PO SCH (07:36)
[2018-10-27] MEDS: PANTOPRAZOLE 40 MG TABLET PO SCH (07:37)
[2018-10-27] MEDS: FUROSEMIDE 40 MG TAB PO SCH (07:37)
[2018-10-27] MEDS: MULTIVITAMINS, THERA 1 EACH TAB PO SCH (07:37)
[2018-10-27] MEDS: RISEDRONATE SODIUM 35 MG PO SCH (07:38)
[2018-10-27] MEDS: prednisoLONE ACETATE 1% OPHTH DROPS 5 ML BTL BOTH EYES SCH (07:40)
[2018-10-27] MEDS: IPRATROPIUM-ALBUTEROL 3 ML NEB INHALATION SCH ×4 (08:45→20:22)
--- NOTE | 2018-10-27 17:41 | PN ---
PROGRESS NOTE DATE OF SERVICE: 10/27/2018 This 83-year-old woman with a past medical history of multiple medical problems, admitted with bilateral bronchopneumonia as well as significant thrombocytopenia, possibly secondary to viral suppression. No chest pain. No palpitations. No fever. The final bone marrow reports are still pending. EXAM: Alert and oriented x3. Pulse 89, blood pressure 114/70, respiration 18, temp 97.4, pulse ox 98% on room. HEENT: Conjunctivae normal. Oral mucosa moist. NECK: No jugular venous distention. No lymph node enlargement. CARDIOVASCULAR: S1, S2. RESPIRATORY: Diminished breath sounds at the bases. No rhonchi, no crackles. ABDOMEN: Soft, nontender. LEGS: No edema, no swelling. NERVOUS SYSTEM: No focal deficits. LABS: WBC 3.8, hemoglobin 9.7, sodium 134. ASSESSMENT: 1. Bilateral bronchopneumonia with interstitial pneumonia, right more than the left, possibly viral. 2. Severe thrombocytopenia, undetermined etiology, possible ITP or viral induced thrombocytopenia. 3. Anemia, normocytic anemia, microcytic, status post multiple transfusions. 4. Increased random blood sugar. 5. Increased total bilirubin. 6. Hypokalemia. 7. History of degenerative joint disease. 8. History of hypothyroidism. 9. History of corneal transplant. 10.History of cataracts. 11.History of gait dysfunction. RECOMMENDATIONS AND DISCUSSION: Recommend to continue current medications, continue to monitor, continue symptomatic treatment. Otherwise, at this time I recommend continue with current medications and monitor labs. Repeat labs tomorrow. Chest x-ray improved significantly. The patient is stable and if okay with Neurology, the patient would be a candidate for [facility] rehab tomorrow. MMODL / IJN: [id number] /
--- NOTE | 2018-10-28 02:53 | PN ---
PROGRESS NOTE DATE OF SERVICE: 10/27/2018 REASON FOR FOLLOWUP: Pneumonia. INTERVAL HISTORY: The patient is currently afebrile. Patient has been breathing comfortably. Occasional cough which is dry in nature. No chest pain. No nausea, no vomiting. No abdominal pain, no diarrhea. PHYSICAL EXAMINATION: Blood pressure 120/70 with a pulse of 71, temperature 97.8, she is 97% on 2 L nasal cannula. General description is an elderly female lying in bed in no distress. Respiratory system: Unlabored breathing. Decreased breath sounds in the bases. No wheeze. Heart S1, S2. Regular rate and rhythm. Abdomen soft. Extremities: No edema of the feet. LABS: Hemoglobin 9.7, WBC 3.8. BUN of 25, creatinine 0.69. Blood and sputum have been negative. DIAGNOSTIC IMPRESSION AND PLAN: Patient admitted to the hospital with difficulty breathing. Did have fever which is likely multifactorial, possible component of pneumonia. The patient received about a week of Levaquin which can be enough and can be safely discontinued. Discharge. Continue supportive care. MMODL / IJN: [id number] /
[2018-10-28] MEDS: LEVOTHYROXINE 88 MCG TAB PO SCH (06:00)
[2018-10-28 07:52] LABS: Anisocytosis Slight; Basophils % (A) 0 %; Eosinophils # (A) 0.1 k/uL (0-0.7); Eosinophils % (A) 3 %; HCT 26.8 % (34.0-46.0); HGB 9.1 gm/dL (11.4-16.0); Lymphocytes # (A) 1.3 k/uL (1.0-4.8); Lymphocytes % (A) 42 %; MCH 34.2 pg (25.0-35.0); MCHC 33.9 g/dL (31.0-37.0); Macrocytosis Moderate; Mean Platelet Volume 9.4; Monocytes # (A) 0.2 k/uL (0-1.0); Monocytes % (A) 6 %; Neutrophils # (A) 1.5 k/uL (1.3-7.7); Neutrophils % (A) 48 %; RBC 2.66 m/uL (3.80-5.40); RDW 18.5 % (11.5-15.5); WBC 3.2 k/uL (3.8-10.6)
[2018-10-28 07:58] LABS: Calcium 9.1 mg/dL (8.4-10.2); Potassium 3.2 mmol/L (3.5-5.1)
[2018-10-28] MEDS: POTASSIUM CHLORIDE ER 10 MEQ TAB.ER.PRT PO SCH (08:07)
[2018-10-28] MEDS: LEVOFLOXACIN 750 MG TAB PO SCH (08:07)
[2018-10-28] MEDS: MULTIVITAMINS, THERA 1 EACH TAB PO SCH (08:08)
[2018-10-28] MEDS: FUROSEMIDE 40 MG TAB PO SCH (08:08)
[2018-10-28] MEDS: PANTOPRAZOLE 40 MG TABLET PO SCH (08:08)
[2018-10-28] MEDS: prednisoLONE ACETATE 1% OPHTH DROPS 5 ML BTL BOTH EYES SCH (08:08)
[2018-10-28 08:17] LABS: Platelet Count 10 k/uL (150-450)
[2018-10-28] MEDS ORDERED: POTASSIUM CHLORIDE ER 20 MEQ TAB.ER PO STA (08:49)
[2018-10-28] MEDS: IPRATROPIUM-ALBUTEROL 3 ML NEB INHALATION SCH ×3 (08:56→16:20)
--- NOTE | 2018-10-28 13:40 | P.DS ---
Providers Date of admission: 10/18/18 16:56 Expected date of discharge: 10/28/18 Attending physician: Phillip Hines Consults: 10/18/18 17:05 Consult Physician Stat Consulting Provider: Dillon Woodard Consult Reason/Comments: Anemia, TTP Do you want consulting provider notified?: Yes 10/19/18 17:03 Consult Physician Routine Consulting Provider: Karena Quezada Consult Reason/Comments: pneumonia Do you want consulting provider notified?: Yes Consult Physician Routine Consulting Provider: Josefa Arce Consult Reason/Comments: pneumonia Do you want consulting provider notified?: Yes 10/20/18 22:31 Consult Physician Urgent Consulting Provider: Kade Diaz Consult Reason/Comments: Elevated HR Do you want consulting provider notified?: Yes Primary care physician: Carlos Prather [facility] Course: Final diagnosis Bilateral broncho-pneumonia with interstitial pneumonia, right more than left, possibly viral Severe thrombocytopenia, undetermined etiology, possible ITP or viral induced thrombocytopenia Anemia, normocytic anemia, microcytic, status post multiple transfusions Increased random blood sugar Increased total bilirubin Hypokalemia History of degenerative joint disease History of hypothyroidism history of corneal transplant History of cataracts History of gait dysfunction Discharge disposition Patient is being discharged in a stable condition with guarded prognosis to [facility] rehab facility. Total time taken 30 minutes. Patient will continue to work with PT/OT for strength and mobility. Patient will follow-up with hematology/oncology in the outpatient setting in 1-2 weeks. History of present illness This is a 83-year-old female who was recently admitted with bilateral broncho- pneumonia as well as significant thrombocytopenia which is possibly secondary to viral suppression and was being closely monitored. Hematology/oncology as well as infectious disease were following closely. Patient did receive 2 units of packed red blood cells as well as 3 units of platelets during hospitalization and labs are being monitored closely. Patient is to receive the last unit of platelets prior to discharge to [facility] per Dr. Woodard and will follow-up with them in the outpatient setting in 1-2 weeks. Patient will have CBC/BMP labs redrawn in 2 days. During hospitalization patient was quite short of breath and oxygen saturations have been maintained on oxygen nasal cannula. Patient has been receiving 2 L of oxygen via nasal cannula and saturating well. Patient will be discharged on oxygen to [facility]. Patient denies any chest pain, shortness of breath, or palpitations at this time. Patient states that she is getting up to the bathroom and walking around the unit much easier and not being as winded. Patient completed a full course of antibiotic therapy and will be discharged without any antibiotics per infectious disease at this time. Patient denies any nausea or vomiting and has been tolerating diet. She states today that she has got some of her appetite back and has been eating a little more. Daughter at the bedside. Currently patient's condition is stable with much improvement with a guarded prognosis. On exam vital signs are stable. Temp is 97.7 oral, pulse is 84, respirations are 16, blood pressure is 99/63, oxygen saturation is 98% on 2 L. Cardio S1 and S2 are normal. Respiratory system shows diminished breath sounds at the bases otherwise clear upon auscultation. Abdomen is soft, and non-tender. Nervous system shows no focal deficits and gait is steady. Please refer to medication reconciliation sheet for a list of medications. Patient Condition at Discharge: Stable Plan - Discharge Summary Discharge Rx Participant: No New Discharge Prescriptions: New Potassium Chloride ER [K-Dur 10] 10 meq PO DAILY tab.er.prt Furosemide [Lasix] 40 mg PO DAILY tab prednisoLONE ACETATE 1% OPHTH [Pred Forte 1%] 1 drops BOTH EYES DAILY ml Pantoprazole [Protonix] 40 mg PO AC-BRKFST tablet. Acetaminophen Tab [Tylenol] 500 mg PO Q6HR PRN tab PRN Reason: Fever And/ Or Pain Continue Multivitamin/Iron/Folic Acid [Centrum Complete Multivit Tab] 1 tab PO DAILY Levothyroxine Sodium [Synthroid] 88 mcg PO DAILY Glucosam/Paulie-Msm1/C/Jason/Bosw [Glucosamine-Chondroitin Tablet] 1 tab PO DAILY Risedronate Sodium [Risedronate Sodium Dr] 35 mg PO MO Discharge Medication List Glucosam/Paulie-Msm1/C/Jason/Bosw [Glucosamine-Chondroitin Tablet] 1 tab PO DAILY 10/18/18 [History] Levothyroxine Sodium [Synthroid] 88 mcg PO DAILY 10/18/18 [History] Multivitamin/Iron/Folic Acid [Centrum Complete Multivit Tab] 1 tab PO DAILY 10/18/18 [History] Risedronate Sodium [Risedronate Sodium Dr] 35 mg PO MO 10/18/18 [History] Acetaminophen Tab [Tylenol] 500 mg PO Q6HR PRN tab 10/24/18 [Rx] Furosemide [Lasix] 40 mg PO DAILY tab 10/24/18 [Rx] Pantoprazole [Protonix] 40 mg PO AC-BRKFST tablet. 10/24/18 [Rx] Potassium Chloride ER [K-Dur 10] 10 meq PO DAILY tab.er.prt 10/24/18 [Rx] prednisoLONE ACETATE 1% OPHTH [Pred Forte 1%] 1 drops BOTH EYES DAILY ml 10/24/18 [Rx] Follow up Appointment(s)/Referral(s): Dillon Woodard MD [STAFF PHYSICIAN] - 1 Week Carlos Wyatt DO [Primary Care Provider] - 1-2 days Josefa Arce MD [STAFF PHYSICIAN] - 1 Week Ambulatory/Diagnostic Orders: Basic Metabolic Panel [LAB.AMB] Time Frame: 2 Days, Location: None Selected Complete Blood Count w/diff [LAB.AMB] Time Frame: 2 Days, Location: None Selected Activity/Diet/Wound Care/Special Instructions: Activity as tolerated Continue current diet Follow-up with hematology/oncology for bone marrow biopsy results in 1-2 weeks Follow-up with primary care provider upon discharge from rehab facility Repeat labs in 2-3 days () Discharge Disposition: TRANSFER TO SNF/F
[2018-10-28 13:59] VITALS: TEMP 97.6
[2018-10-28 15:27] VITALS: BP 117/58; RESP 18
[2018-10-28 16:33] VITALS: PULSE 90
--- NOTE | 2018-10-28 16:47 | PN ---
PROGRESS NOTE DATE OF SERVICE: 10/28/2018. REASON FOR FOLLOWUP: Pneumonia. INTERVAL HISTORY: The patient is currently afebrile. The patient has been breathing comfortably. The patient did have some dry hacking cough. Not bringing up any sputum. No nausea, no vomiting, no abdominal pain or diarrhea. PHYSICAL EXAMINATION: Blood pressure 121/57 with a pulse of 57, temperature 97.6. She is 98% on 1 L nasal cannula. General description is an elderly female up in the chair in no distress. RESPIRATORY SYSTEM: Unlabored breathing with decreased breath sounds at the base. No wheeze. HEART: S1, S2. Regular rate and rhythm. ABDOMEN: Soft. No tenderness. LABS: Hemoglobin 9.1, white count 3.2 with BUN of 22, creatinine 0.72. DIAGNOSTIC IMPRESSION AND PLAN: Patient admitted to hospital with difficulty in breathing, multifactorial, with possible component of pneumonia. She received adequate antibiotic therapy. Levaquin can be discontinued at discharge. Continue with supportive care. MMODL / IJN: [id number] /
== END 2018-10-28 17:25 | DRG 813 ==
LOC: EC 14:13 → 3NMEDONC 16:56 → 3SCARD 10-21 00:12 → 3NMEDONC 10-23 23:27
PROVIDERS: ADMIT Hospitalist; ATTEND Hospitalist
PROC: 30233R1 Transfusion of Nonautologous Platelets into Peripheral Vein, Percutaneous Approach (ICD-10-PCS; principal; 2018-10-18)
PROC: 30233N1 Transfusion of Nonautologous Red Blood Cells into Peripheral Vein, Percutaneous Approach (ICD-10-PCS; 2018-10-18)
PROC: 07DR3ZX Extraction of Iliac Bone Marrow, Percutaneous Approach, Diagnostic (ICD-10-PCS; 2018-10-23)
DX: D69.6 Thrombocytopenia, unspecified (principal); J18.0 Bronchopneumonia, unspecified organism; J96.01 Acute respiratory failure with hypoxia; R17 Unspecified jaundice; D50.9 Iron deficiency anemia, unspecified; D53.9 Nutritional anemia, unspecified; E03.9 Hypothyroidism, unspecified; E78.5 Hyperlipidemia, unspecified; E87.6 Hypokalemia; H11.32 Conjunctival hemorrhage, left eye; I44.7 Left bundle-branch block, unspecified; J84.89 Other specified interstitial pulmonary diseases; I50.9 Heart failure, unspecified; M19.90 Unspecified osteoarthritis, unspecified site; M81.0 Age-related osteoporosis without current pathological fracture; Z79.890 Hormone replacement therapy; Z79.899 Other long term (current) drug therapy; Z80.0 Family history of malignant neoplasm of digestive organs; Z94.7 Corneal transplant status; Z98.49 Cataract extraction status, unspecified eye; Z88.8 Allergy status to other drugs, medicaments and biological substances; R73.9 Hyperglycemia, unspecified; Z82.3 Family history of stroke
CPT/HCPCS: 36415; 38222; 71045; 71046; 80048; 80053; 81001; 82272; 82607; 82746; 83010; 83540; 83550; 83605; 83615; 83735; 83880; 83883; 83921; 84132; 84145; 84165; 84443; 84484; 85025; 85045; 85379; 85384; 85610; 85652; 85730; 86140; 86335; 86738; 86747; 86850; 86900; 86901; 86920; 87040; 87070; 87086; 87205; 87449; 87502; 93005; 93306; 94640; 94760; 96360; 96361; 96365; 99285

== ENCOUNTER 2020-07-16 14:50 | Emergency (ER) | payer MEDICARE ==
[2020-07-16 14:58] VITALS: BP 126/83; PULSE 71; RESP 20; TEMP 97.4
--- NOTE | 2020-07-16 15:32 | ED ---
Female Urogenital HPI - General Chief complaint: Urogenital Stated complaint: Female UG Time Seen by Provider: 07/16/20 15:03 Source: patient Mode of arrival: wheelchair Limitations: no limitations - History of Present Illness Initial comments: Patient is an 85-year-old female presenting to the emergency Department with complaints of "something coming out of my vagina." She states this morning when she woke up after using the restroom, she is felt some pressure and some discomfort in her vaginal area. She states she has no belly pain, no nausea or vomiting no fevers, no dysuria. She just feels like something is coming out of her. Patient does remember that she has a pessary and has been examined every 3 months. She had this placed about one month ago. She has no further complaints. - Related Data Home Medications Medication Instructions Recorded Confirmed Glucosam/Paulie-Msm1/C/Jason/Bosw 1 tab PO DAILY 10/18/18 10/18/18 [Glucosamine-Chondroitin Tablet] Levothyroxine Sodium [Synthroid] 88 mcg PO DAILY 10/18/18 10/18/18 Multivitamin/Iron/Folic Acid 1 tab PO DAILY 10/18/18 10/18/18 [Centrum Complete Multivit Tab] Risedronate Sodium [Risedronate 35 mg PO MO 10/18/18 10/18/18 Yessenia Dunn] Previous Rx's Medication Instructions Recorded Acetaminophen Tab [Tylenol] 500 mg PO Q6HR PRN tab 10/24/18 Furosemide [Lasix] 40 mg PO DAILY tab 10/24/18 Pantoprazole [Protonix] 40 mg PO AC-BRKFST tablet. 10/24/18 Potassium Chloride ER [K-Dur 10] 10 meq PO DAILY tab.er.prt 10/24/18 prednisoLONE ACETATE 1% OPHTH 1 drops BOTH EYES DAILY ml 10/24/18 [Pred Forte 1%] Allergies Allergy/AdvReac Type Severity Reaction Status Date / Time No Known Allergies Allergy Verified 07/16/20 14:58 Review of Systems ROS Statement: Those systems with pertinent positive or pertinent negative responses have been documented in the HPI. ROS Other: All systems not noted in ROS Statement are negative. Past Medical History Past Medical History: Thyroid Disorder Additional Past Medical History / Comment(s): "blood disorder" -requires platelets weekly History of Any Multi-Drug Resistant Organisms: None Reported Past Surgical History: Orthopedic Surgery Additional Past Surgical History / Comment(s): cataracts, cornea transplant Past Anesthesia/Blood Transfusion Reactions: No Reported Reaction Past Psychological History: No Psychological Hx Reported Smoking Status: Never smoker Past Alcohol Use History: None Reported Past Drug Use History: None Reported - Past Family History Father Additional Family Medical History / Comment(s): colon cancer Mother Family Medical History: CVA/TIA General Exam - General Exam Comments Initial Comments: GENERAL: Patient is well-developed and well-nourished. Patient is nontoxic and in no acute distress. HEAD: Atraumatic, normocephalic. EYES: Pupils equal round and reactive to light, extraocular movements intact, sclera anicteric, conjunctiva are normal. Eyelids were unremarkable. ENT: Nares patent, oropharynx clear without exudates. Moist mucous membranes. NECK: Normal range of motion, supple without lymphadenopathy or JVD. LUNGS: Unlabored respirations. Breath sounds clear to auscultation bilaterally and equal. No wheezes rales or rhonchi. HEART: Regular rate and rhythm without murmurs, rubs or gallops. ABDOMEN: Soft, nontender, normoactive bowel sounds. No guarding, no rebound. No masses appreciated. MUSCULOSKELETAL: Normal extremities with adequate strength and normal range of motion, no pitting or edema. No clubbing or cyanosis. NEUROLOGICAL: Patient is alert and oriented x 3. Motor and sensory are also intact. Cranial nerves II through XII grossly intact. Symmetrical smile. Normal speech, normal gait. PSYCH: Normal mood, normal affect. SKIN: Warm, Dry, normal turgor, no rashes or lesions noted. Limitations: no limitations External exam: Present: normal external exam Speculum exam: Present: other (pessary seen at vaginal opening, this was removed without difficulty.) Course Vital Signs 07/16/20 14:52 Temperature 97.4 F L Pulse Rate 71 Respiratory 20 Rate Blood Pressure 126/83 O2 Sat by Pulse 97 Oximetry Medical Decision Making - Medical Decision Making Patient is an 85-year-old female presenting with complaints of "something coming out of her vagina." She has no pain, no nausea vomiting no dysuria. On vaginal exam, patient has a pessary visible at her vaginal opening. This was removed without difficulty. Patient has immediate relief. 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 She is stable for discharge and she is in agreement with this plan of care. Case discussed with Dr. Buchanan. Disposition Clinical Impression: Problem with vaginal pessary Disposition: HOME SELF-CARE Condition: Stable Instructions (If sedation given, give patient instructions): Normal Exam (ED) Additional Instructions: Please return to the Emergency Department if symptoms worsen or any other c oncerns. Please follow-up with your GOVERNMENT INSTRUCTOR for Pessary re-placement. Is patient prescribed a controlled substance at d/c from ED?: No Referrals: Oneal Morocho MD [Primary Care Provider] - 1-2 days Time of Disposition: 15:32
== END 2020-07-16 15:44 | disposition home or self-care (01) ==
LOC: EC 14:50
DX: T83.89XA Other specified complication of genitourinary prosthetic devices, implants and grafts, initial encounter (principal); E07.9 Disorder of thyroid, unspecified; Z79.890 Hormone replacement therapy
CPT/HCPCS: 99282

== ENCOUNTER 2020-08-21 13:36 | Emergency (ER) | payer MEDICARE ==
[2020-08-21] MEDS ORDERED: ACETAMINOPHEN TAB 500 MG TAB PO STA (14:14)
--- NOTE | 2020-08-21 15:32 | XR ---
EXAMINATION TYPE: XR knee 4V RT DATE OF EXAM: 08/21/2020 COMPARISON: NONE HISTORY: Knee pain TECHNIQUE: 3 views FINDINGS: There is some spurring on the patella. I see no fracture nor dislocation. There is no evide nce of joint effusion. There is spurring of the medial femoral and tibial condyles. There is minimal joint space narrowing. IMPRESSION: Mild osteoarthritis. No fracture.
--- NOTE | 2020-08-21 15:38 | ED ---
Lower Extremity Injury HPI - General Chief Complaint: Extremity Injury, Lower Stated Complaint: R knee pain Time Seen by Provider: 08/21/20 14:03 Source: patient, RN notes reviewed Mode of arrival: wheelchair Limitations: no limitations - History of Present Illness Initial Comments: Patient is an 85-year-old female that presents to the emergency department complaining of right knee pain starting this morning. She notes she woke up and her right knee was very painful and she wasn't able to walk on it due to pain. Patient notes that she was walking around fine yesterday all day with no issue. Patient's family noted the put Lidoderm patches on the front and back of her knee and wrapped in an [place]ley bandage. Patient noted that the pain while laying in bed was tolerable. She notes that she did take some Tylenol around 8:30 this morning with some relief. Patient denied any injury or trauma to the right knee. She denied any issues or complaints other than the right knee pain. She denied any weakness numbness tingling in her right lower extremity. She denied any chest pain shortness breath headache nausea vomiting diarrhea constipation fever fatigue chills. - Related Data Home Medications Medication Instructions Recorded Confirmed Glucosam/Paulie-Msm1/C/Jason/Bosw 1 tab PO DAILY 10/18/18 10/18/18 [Glucosamine-Chondroitin Tablet] Levothyroxine Sodium [Synthroid] 88 mcg PO DAILY 10/18/18 10/18/18 Multivitamin/Iron/Folic Acid 1 tab PO DAILY 10/18/18 10/18/18 [Centrum Complete Multivit Tab] Risedronate Sodium [Risedronate 35 mg PO MO 10/18/18 10/18/18 Sodium ] Previous Rx's Medication Instructions Recorded Acetaminophen Tab [Tylenol] 500 mg PO Q6HR PRN tab 10/24/18 Furosemide [Lasix] 40 mg PO DAILY tab 10/24/18 Pantoprazole [Protonix] 40 mg PO AC-BRKFST tablet. 10/24/18 Potassium Chloride ER [K-Dur 10] 10 meq PO DAILY tab.er.prt 10/24/18 prednisoLONE ACETATE 1% OPHTH 1 drops BOTH EYES DAILY ml 10/24/18 [Pred Forte 1%] Allergies Allergy/AdvReac Type Severity Reaction Status Date / Time No Known Allergies Allergy Verified 08/21/20 13:38 Review of Systems ROS Statement: Those systems with pertinent positive or pertinent negative responses have been documented in the HPI. ROS Other: All systems not noted in ROS Statement are negative. Past Medical History Past Medical History: Thyroid Disorder Additional Past Medical History / Comment(s): "blood disorder" -requires platelets weekly History of Any Multi-Drug Resistant Organisms: None Reported Past Surgical History: Orthopedic Surgery Additional Past Surgical History / Comment(s): cataracts, cornea transplant Past Anesthesia/Blood Transfusion Reactions: No Reported Reaction Past Psychological History: No Psychological Hx Reported Smoking Status: Never smoker Past Alcohol Use History: None Reported Past Drug Use History: None Reported - Past Family History Father Additional Family Medical History / Comment(s): colon cancer Mother Family Medical History: CVA/TIA General Exam Limitations: no limitations General appearance: alert, in no apparent distress Head exam: Present: atraumatic, normocephalic, normal inspection Eye exam: Present: normal appearance, PERRL, EOMI. Absent: scleral icterus, conjunctival injection, periorbital swelling Neck exam: Present: normal inspection Respiratory exam: Present: normal lung sounds bilaterally. Absent: respiratory distress, wheezes, rales, rhonchi, stridor Cardiovascular Exam: Present: regular rate, normal rhythm, normal heart sounds. Absent: systolic murmur, diastolic murmur, rubs, gallop, clicks Right Knee exam: Present: normal inspection, full ROM, swelling (Normal). Absent: tenderness, abrasion, laceration, ecchymosis, deformity, crepitus, dislocation, erythema, effusion Neurological exam: Present: alert, oriented X3 Psychiatric exam: Present: normal affect, normal mood Skin exam: Present: warm, dry, intact, normal color. Absent: rash Course Vital Signs 08/21/20 13:38 Temperature 97.9 F Pulse Rate 88 Respiratory 16 Rate Blood Pressure 151/70 O2 Sat by Pulse 97 Oximetry Medical Decision Making - Medical Decision Making 85-year-old female complaining of right knee pain started this morning. X-ray of the right knee, 1000 mg of Tylenol ordered. X-ray negative for any acute fractures dislocations, shows mild osteoarthritis. Case discussed with Dr. Greenfield, patient discharge home in stable condition a follow-up with primary care. - Radiology Data Radiology results: report reviewed, image reviewed Right knee x-ray: Mild osteoarthritis. No fracture. Disposition Clinical Impression: Knee osteoarthritis Disposition: HOME SELF-CARE Condition: Stable Instructions (If sedation given, give patient instructions): Knee Pain (ED) Additional Instructions: Please return to the Emergency Department if symptoms worsen or any other concerns. Continue take Tylenol Motrin as needed for pain control. Follow-up with primary care in the next several days. Rest the right knee avoid a strain in his activity or exercise. Is patient prescribed a controlled substance at d/c from ED?: No Referrals: Oneal Morocho MD [Primary Care Provider] - 1-2 days Time of Disposition: 15:54
[2020-08-21 16:59] VITALS: BP 123/66; PULSE 78; RESP 18; TEMP 98
== END 2020-08-21 16:50 | disposition home or self-care (01) ==
LOC: EC 13:36
DX: M17.11 Unilateral primary osteoarthritis, right knee (principal); Z79.899 Other long term (current) drug therapy
CPT/HCPCS: 99283